=== PATIENT | male | born 1950 | race Caucasian/White ===

== ENCOUNTER 2019-02-16 18:10 | Emergency (ER) | payer MEDICARE, OTHER ==
[2019-02-16 18:21] VITALS: BP 129/98
[2019-02-16] MEDS ORDERED: DOXYCYCLINE 100 MG TABLET PO STA (19:00)
[2019-02-16] MEDS ORDERED: BUFFERED LIDOCAINE 10 ML SYRINGE SUBQ STA (19:00)
[2019-02-16] MEDS ORDERED: metroNIDAZOLE 250 MG TABLET PO STA (19:00)
--- NOTE | 2019-02-16 19:01 | ED Physician Documentation ---
PD HPI LOWER EXT INJURY - Stated complaint Stated Complaint: DOG BITE -RT LEG - Chief complaint Chief Complaint: Laceration - History obtained from History obtained from: Patient - History of Present Illness PD HPI LOW EXT INJURY LOCATION: Right (68-year-old gentleman who is up-to-date on tetanus got bitten by the neighbor's dog at home about 1 PM to the right leg just today.) Review of Systems Constitutional: reports: Reviewed and negative Nose: reports: Reviewed and negative Throat: reports: Reviewed and negative PD PAST MEDICAL HISTORY - Present Medications Home Medications: Ambulatory Orders Medication Instructions Recorded Confirmed Doxycycline Hyclate 100 mg PO BID #10 capsule 02/16/19 Metronidazole [Flagyl] 500 mg PO BID #10 tablet 02/16/19 - Allergies Allergies/Adverse Reactions: Allergies Allergy/AdvReac Type Severity Reaction Status Date / Time hydrocodone Allergy Unknown Verified 02/16/19 18:21 Penicillins Allergy Unknown Verified 02/16/19 18:21 PD ED PE NORMAL - Vitals Vital signs reviewed: Yes - General General: Alert and oriented X 3, No acute distress - Extremities Extremities: Other (On the right hamstring there is a 1.5 cm laceration into subcutaneous tissue with active bleeding. 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, Normal speech - Psych Psych: Normal mood, Normal affect Results - Vitals Vitals: Vital Signs - 24 hr 02/16/19 18:17 Temperature 36.8 C Heart Rate 95 Respiratory 22 Rate Blood Pressure 129/98 H O2 Saturation 100 Oxygen O2 Source Room air Procedures - Laceration (location) R leg Length in cm: 1 Wound type: Linear Neurovascular status: Sensory intact, Motor intact, Vascular intact Anesthesia: Lidocaine 1%, With bicarb Wound Preparation: Irrigated copiously NS Skin layer closure: Nylon, Interrupted, Size #-0 - enter number (4-0), Sutures - enter # (2) Other: Tetanus UTD Complexity: Simple Departure - Departure Disposition: 01 Home, Self Care Clinical Impression: Dog bite of right lower leg Qualifiers: Encounter type: initial encounter Qualified Code(s): S81.851A - Open bite, right lower leg, initial encounter; W54.0XXA - Bitten by dog, initial encounter Condition: Good Record reviewed to determine appropriate education?: Yes Instructions: ED Laceration All Prescriptions: Doxycycline Hyclate 100 mg PO BID #10 capsule Metronidazole [Flagyl] 500 mg PO BID #10 tablet Comments: Come back for any signs of infection which would include: Redness, swelling, drainage, increased pain, or fevers. You can wash it soap and water. Keep it covered and moist with bacitracin ointment which is available over the counter; avoid neosporin. Follow-up with your physician in about 10 days for suture removal.
== END 2019-02-16 19:22 | disposition home or self-care (01) ==
LOC: ED 18:10
DX: S71.151A Open bite, right thigh, initial encounter (principal); W54.0XXA Bitten by dog, initial encounter; Y92.009 Unspecified place in unspecified non-institutional (private) residence as the place of occurrence of the external cause
CPT/HCPCS: 12001; 99283; A9270

== ENCOUNTER 2019-04-21 14:57 | Emergency (ER) | payer MEDICARE, OTHER ==
[2019-04-21 15:03] VITALS: BP 173/69
--- NOTE | 2019-04-21 16:02 | ED Physician Documentation ---
PD HPI MALE - Stated complaint Stated Complaint: UNABLE TO URINATE - Chief complaint Chief Complaint: UTI - History obtained from History obtained from: Patient - History of Present Illness Timing - onset: How many weeks ago (2) Timing - duration: Weeks (2) Timing - details: Gradual onset, Still present Associated symptoms: Unable to urinate Similar symptoms before: Diagnosis (urinary retention) Recently seen: Clinic - Additional information Additional information: 68-year-old male developed a decreased urinary stream about 2 weeks ago and was placed on some Flomax with some improvement. Subsequently he has been unable to urinate or fully empty his bladder and he has been doing self cathing. Today he is not able to urinate at all and he has emptied his bladder earlier by self cathing. He has a prior history of urinary retention prior to his TURP and he has made an appointment to see a urologist at the end of this week. Review of Systems Constitutional: denies: Fever Eyes: denies: Decreased vision Ears: denies: Ear pain Nose: denies: Rhinorrhea / runny nose, Congestion Throat: denies: Sore throat Cardiac: denies: Chest pain / pressure, Palpitations Respiratory: reports: Dyspnea, Cough GI: denies: Abdominal Pain, Nausea, Vomiting : reports: Unable to Void. denies: Dysuria, Frequency PD PAST MEDICAL HISTORY - Present Medications Home Medications: Ambulatory Orders Medication Instructions Recorded Confirmed Doxycycline Hyclate 100 mg PO BID #10 capsule 02/16/19 Metronidazole [Flagyl] 500 mg PO BID #10 tablet 02/16/19 Levofloxacin [Levaquin] 500 mg PO DAILY #7 tablet 04/21/19 - Allergies Allergies/Adverse Reactions: Allergies Allergy/AdvReac Type Severity Reaction Status Date / Time hydrocodone Allergy Unknown Verified 02/16/19 18:21 Penicillins Allergy Unknown Verified 02/16/19 18:21 PD ED PE NORMAL - Vitals Vital signs reviewed: Yes (hypertensiev ) - General General: Alert and oriented X 3, No acute distress, Well developed/nourished - HEENT HEENT: Atraumatic, PERRL, EOMI - Neck Neck: Supple, no meningeal sign - Cardiac Cardiac: RRR, No murmur - Respiratory Respiratory: No respiratory distress, Other (scattered wheezes with fair air movement) - Abdomen Abdomen: Soft, Non tender - Back Back: No CVA TTP, No spinal TTP - Derm Derm: Normal color, Warm and dry, No rash - Extremities Extremities: No deformity, No edema - Neuro Neuro: Alert and oriented X 3, photographic platemaker 2-12 intact, No motor deficit, No sensory deficit, Normal speech Eye Opening: Spontaneous Motor: Obeys Commands Verbal: Oriented GCS Score: 15 - Psych Psych: Normal mood, Normal affect Results - Vitals Vitals: Vital Signs - 24 hr 04/21/19 14:59 Temperature 37.3 C Heart Rate 88 Respiratory 18 Rate Blood Pressure 173/69 H O2 Saturation 98 Oxygen O2 Source Room air - Labs Labs: Laboratory Tests 04/21/19 16:25 Urine Color YELLOW Urine Clarity CLOUDY Urine pH 6.0 Ur Specific [place] 1.015 Urine Protein TRACE Urine Glucose (UA) NEGATIVE Urine Ketones NEGATIVE Urine Occult Blood SMALL H Urine Nitrite POSITIVE H Urine Bilirubin NEGATIVE Urine Urobilinogen 1 (NORMAL) Ur Leukocyte Esterase MODERATE H Urine RBC 6-10 H Urine WBC >25 H Ur Squamous Epith Cells NONE SEEN Urine Bacteria Moderate H Ur Microscopic Review INDICATED Urine Culture Comments INDICATED PD MEDICAL DECISION MAKING - ED course Complexity details: reviewed results, re-evaluated patient, considered differential, d/w patient ED course: 76-year-old male with gradual decrease in his stream has now developed retention and a Mims catheter is placed with drainage of foul urine that is showing evidence of infection. The patient is administered Levaquin 500 mg orally here in the emergency department and he has follow-up with a urologist at the end of this week. Departure - Departure Disposition: 01 Home, Self Care Clinical Impression: Urinary retention Urinary tract infection Qualifiers: Urinary tract infection type: acute cystitis Hematuria presence: with hematuria Qualified Code(s): N30.01 - Acute cystitis with hematuria Instructions: ED Catheter Care Mims, ED Retention Urinary Male, ED UTI Cystitis Male Follow-Up: Abbi Reina MD [Physician No Access] - Prescriptions: Levofloxacin [Levaquin] 500 mg PO DAILY #7 tablet
[2019-04-21 16:30] LABS: BILIRUBIN,URINE NEGATIVE (NEGATIVE); GLUCOSE, URINE (UA) NEGATIVE (NEGATIVE); KETONES,URINE (UA) NEGATIVE (NEGATIVE); LEUKOCYTE ESTERASE, URINE MODERATE (NEGATIVE); NITRITE,URINE POSITIVE (NEGATIVE); OCCULT BLOOD,URINE SMALL (NEGATIVE); PROTEIN,URINE TRACE mg/dL (NEGATIVE); UROBILINOGEN,URINE 1 (NORMAL) E.U./dL (NORMAL)
[2019-04-21 16:31] LABS: CLARITY,URINE CLOUDY (CLEAR)
[2019-04-21 16:56] LABS: BACTERIA,URINE Moderate /HPF (None Seen); SQUAMOUS EPITHELIAL CELL,UR NONE SEEN (<= Few)
[2019-04-21] MEDS ORDERED: levoFLOXacin 250 MG TABLET PO STA (17:39)
== END 2019-04-21 18:04 | disposition home or self-care (01) ==
LOC: ED 14:57
DX: R33.9 Retention of urine, unspecified (principal); N30.01 Acute cystitis with hematuria
CPT/HCPCS: 51702; 81001; 87086; 87181; 99283; 99284; A9270; 81003

== ENCOUNTER 2020-04-23 13:00 | Outpatient (CLI) | payer MEDICARE, OTHER | END 2020-04-23 13:01 | disposition home or self-care (01) | LOC: LAB 13:00 | PROVIDERS: ATTEND Surgery | DX: Z01.812 Encounter for preprocedural laboratory examination (principal); K40.90 Unilateral inguinal hernia, without obstruction or gangrene, not specified as recurrent; Z11.59 Encounter for screening for other viral diseases ==

== ENCOUNTER 2020-04-28 07:17 | Day surgery (SDC) | payer MEDICARE, OTHER ==
[~2020-04-28 07:17] MED LIST: CEFAZOLIN SODIUM IN 0.9 % NACL 2 GM/100 ML BAG IV ONE
[2020-04-28] MEDS ORDERED: ROCURONIUM 50 MG/5 ML VIAL IVP ONE (07:18)
[2020-04-28] MEDS ORDERED: KETOROLAC 30 MG/ML VIAL IVP ONE (07:18)
[2020-04-28] MEDS ORDERED: DEXAMETHASONE 4 MG/ML VIAL IVP ONE (07:18)
[2020-04-28] MEDS ORDERED: LIDOCAINE-MPF 2% 5 ML VIAL IM ONE (07:18)
[2020-04-28] MEDS ORDERED: SUGAMMADEX 200 MG/2 ML VIAL IVP ONE (07:18)
[2020-04-28] MEDS ORDERED: fentaNYL 100 MCG/2 ML VIAL IVP ONE (07:18)
[2020-04-28] MEDS ORDERED: KETAMINE 500 MG/10 ML VIAL IVP ONE (07:18)
[2020-04-28] MEDS ORDERED: ePHEDrine 50 MG/ML VIAL IVP ONE (07:18)
[2020-04-28] MEDS ORDERED: PROPOFOL 200 MG/20 ML VIAL IVP ONE (07:18)
[2020-04-28] MEDS ORDERED: BUPIVACAINE 0.25% PF 30 ML VIAL ONE ×3 (07:19→09:29)
[2020-04-28] MEDS ORDERED: ceFAZolin 1 GM VIAL ONE (07:19)
[2020-04-28] MEDS ORDERED: LACTATED RINGERS 1,000 ML IV ONE (07:41)
--- NOTE | 2020-04-28 07:56 | ANESTHESIA ---
Pre-Anesthesia VS, & Labs - Diagnosis right inguinal hernia - Procedure Laparoscopic right inguinal hernia repair Vital Signs: Temp Pulse Resp BP Pulse Ox 36.5 C 71 20 160/92 H 97 04/28/20 07:23 04/28/20 07:23 04/28/20 07:23 04/28/20 07:23 04/28/20 07:23 Height 5 ft 7 in Weight (kg) 56.6 kg Body Mass Index 17.5 - NPO >8 hours Home Medications and Allergies Home Medications: Ambulatory Orders Albuterol Sulfate [Proair Hfa Inhaler] 1 - 2 puffs INH Q4H PRN 04/16/20 Fluticasone/Salmeterol [Advair 250-50 Diskus] 1 each IH BID 04/16/20 Tamsulosin HCl [Flomax] 0.8 mg PO QPM 04/16/20 Albuterol Sulfate [Proair Hfa Inhaler] 1 - 2 puffs INH Q4H PRN 04/16/20 Fluticasone/Salmeterol [Advair 250-50 Diskus] 1 each IH BID 04/16/20 Tamsulosin HCl [Flomax] 0.8 mg PO QPM 04/16/20 Allergies/Adverse Reactions: Allergies Allergy/AdvReac Type Severity Reaction Status Date / Time bupropion [From Wellbutrin] Allergy Unknown Verified 04/28/20 07:44 hydrocodone Allergy Itching Verified 04/16/20 08:59 Penicillins Allergy Itching Verified 04/16/20 08:59 Anes History & Medical History - Anesthetic History Anesthesia Complications: reports: No previous complications Family history of Anesthesia Complications: Denies Family history of Malignant Hyperthermia: Denies - Medical History Cardiovascular: reports: Hypertension, High cholesterol, Other (does lawn mowing and works in his garden everyday. Denies any chest pain/pressure while active. denies any TX's) Pulmonary: reports: COPD (denies being diagnosed with COPD) Gastrointestinal: reports: None Urinary: reports: Benign prostate hypertrophy Neuro: reports: None, Other (bells palsy in 1966 and 1969) Musculoskeletal: reports: Chronic back pain Endocrine/Autoimmune: reports: None Blood Disorders: reports: None Skin: reports: None Smoking Status: Current every day smoker (2ppd x50 years) Psychosocial: reports: No issues indicated - Surgical History General: Colonoscopy, Other Urologic: Prostatic surgery Orthopedic: Spine surgery Exam General: Alert, Oriented x3, Cooperative, No acute distress Dental: WNL Mouth Openin Fingerbreadth Neck Mobility: Normal Mallampati classification: II Thyromental Distance: 4-6 cm Respiratory: Decreased breath sounds Cardiovascular: Regular rate, Normal S1, Normal S2, No murmurs Abdomen: Normal bowel sounds, Soft, No tenderness, No hepatospenomegaly, No masses Extremities: No clubbing, No cyanosis, No edema, Normal pulses, No tenderness/swelling Neurological: Normal gait, Normal speech, Strength at 5/5 X4 ext, Normal tone, Sensation intact, Cranial nerves 3-12 NL, Reflexes 2+ Mental/Cognitive Status: Alert/Oriented X3, Normal for patient Cognitive Status: Within normal limits Plan Anesthesia Type: General Consent for Procedure(s) Verified and Reviewed: Yes Code Status: Attempt Resuscitation ASA classification: 3-Severe systemic disease Is this case an emergency?: No
[2020-04-28] MEDS ORDERED: ALBUTEROL 1 PUFF INH STA (08:30)
[2020-04-28] MEDS ORDERED: BUPIVACAINE 0.25% PF 30 ML VIAL SUBQ ONE ×3 (09:28→10:09)
[2020-04-28] MEDS ORDERED: oxyCODONE 5 MG TABLET PO PRN (10:31)
[2020-04-28] MEDS ORDERED: ONDANSETRON 4 MG/2 ML VIAL IVP PRN (10:31)
--- NOTE | 2020-04-28 11:26 | OPERATIVE REPORT ---
DATE OF SERVICE: 04/28/2020 Physician: Luis Fernando Cisse MD PREOPERATIVE DIAGNOSIS: Recurrent inguinal hernia. POSTOPERATIVE DIAGNOSIS: Recurrent inguinal hernia, incarcerated. PROCEDURE PERFORMED: Open repair of recurrent incarcerated right inguinal hernia. SURGEON: Luis Fernando Cisse MD SKILLS INSTRUCTOR: None. ANESTHESIA: General endotracheal anesthesia. Local anesthesia with Marcaine. COMPLICATIONS: None. SPECIMENS: Incarcerated preperitoneal adipose tissue and hernia sac removed. However, not sent for pathology. ESTIMATED BLOOD LOSS: None. DRAINS: None. PROSTHETIC: Polypropylene mesh. FINDINGS: Incarcerated direct inguinal hernia, at time surgery consisted of a sac and thickened preperitoneal adipose tissue. The ilioinguinal nerve likely had been removed on prior surgery. Iliohypogastric nerve was not identified, likely was removed with prior surgery. His prior repair on this side was an open, with preperitoneal mesh placement. INDICATIONS FOR PROCEDURE: The patient is a 69-year-old gentleman who has had 5 inguinal hernias over the last 2-3 decades. He has a painful hernia on the right-hand side. He is able to reduce it at times. Laparoscopic repair was offered and recommended. Risks discussed, alternatives discussed. All questions answered and consent obtained. DETAILS OF PROCEDURE: The patient was properly identified, brought to the operating room and placed in supine position. General endotracheal anesthesia was induced. Sequential compression devices and Mims catheter were placed. Under general anesthesia, he still had a palpable 3 cm nodule or incarceration, which I was not able to reduce. The patient denied having a laparoscopic repair; however, had a small suprapubic scar and infraumbilical scar, both consistent with prior laparoscopic inguinal hernia surgery. He did not have palpable mesh present superficially even though he is quite thin. Plan was changed to open repair. He was prepped and draped in a sterile fashion and given preoperative antibiotics. Local anesthetic was given throughout the procedure. The prior scar was re-incised. Dissection proceeded with cutting current down to Laura's. Laura's was opened. The fascia was identified and opened in the direction of its fibers. The cord structures were identified, mobilized, and brought up. He had a direct inguinal hernia recurrence. His mesh had previously been placed preperitoneal. Sutures were identified as well as mesh. The direct inguinal hernia incarceration was carefully inspected. This essentially was thickened peritoneal adipose tissue and preperitoneal adipose tissue. Incarcerated internal contents had been reduced. This hernia sac was tied with a 2-0 silk. He had an additional small hernia suprapubically. The genitofemoral nerve was identified. A polypropylene mesh was cut to size and with tails. The mesh was placed in Mely fashion with multiple interrupted 0 Ethibond sutures. Sutures were placed at the pubic tubercle along the shelving border of Poupart ligament and medially along the musculature fascia of the internal oblique. The medial tail of the mesh was secured to the shelving border of Poupart ligament with three interrupted 0 Ethibond sutures, recreating the internal ring of appropriate size. The aponeurosis was closed with a running 2-0 Vicryl. Laura's was closed with interrupted 3-0 Vicryl suture. Skin was closed with a running 4-0 Monocryl subcuticular suture. Dressing was applied. He tolerated the procedure well. TD: 04/28/2020 10:58 PHOEBE
[2020-04-28] MEDS ORDERED: oxyCODONE 5 MG TABLET ONE (11:31)
[2020-04-28 11:57] VITALS: BP 126/75
[2020-04-28] MEDS ORDERED: BUDESONIDE 0.5 MG/2 ML NEB INH SCH (19:00)
== END 2020-04-28 07:18 | disposition home or self-care (01) ==
LOC: SDS 07:17
PROVIDERS: ATTEND Surgery
DX: K40.91 Unilateral inguinal hernia, without obstruction or gangrene, recurrent (principal); I10 Essential (primary) hypertension; F17.210 Nicotine dependence, cigarettes, uncomplicated; J44.9 Chronic obstructive pulmonary disease, unspecified
CPT/HCPCS: 49521; A9270; C1781; J0690; J7120; J7626

== ENCOUNTER 2020-08-30 14:15 | Emergency (ER) | payer MEDICARE, OTHER ==
--- NOTE | 2020-08-30 14:41 | ED Physician Documentation ---
History of Present Illness - Stated complaint Stated Complaint: SOA - Chief complaint Chief Complaint: Resp - History obtained from History obtained from: Patient - History of Present Illness Pain level max: 2 Pain level now: 1 - Additonal information Additional information: 70-year-old male presents to the emergency department with difficulty breathing. He states this been ongoing for several years. Has a history of COPD. Uses Spiriva at home. States it is not helping. Has had increased difficulty breathing over the past week. Has a chronic cough that is unchanged from baseline. No fevers. No chills. States that his chest feels tight. No history of heart problems. No Covid exposure that he is aware of. No travel. No recent antibiotics. Nothing seems to make it better or worse. Review of Systems Ten Systems: 10 systems reviewed and negative Constitutional: denies: Fever, Chills Ears: denies: Ear pain Nose: denies: Rhinorrhea / runny nose, Congestion Cardiac: reports: Chest pain / pressure ("Tightness"). denies: Palpitations Respiratory: reports: Dyspnea, Wheezing. denies: Hemoptysis GI: denies: Abdominal Pain, Nausea, Vomiting, Diarrhea : denies: Dysuria Skin: denies: Rash Musculoskeletal: denies: Neck pain, Back pain Neurologic: denies: Headache PD PAST MEDICAL HISTORY - Past Medical History Past Medical History: Yes Cardiovascular: Hypertension, High cholesterol, Other Respiratory: COPD Neuro: None, Other Endocrine/Autoimmune: None GI: None : Benign prostate hypertrophy HEENT: Chronic vision loss Psych: Depression, Anxiety Musculoskeletal: Chronic back pain Derm: None - Past Surgical History Past Surgical History: Yes General: Colonoscopy, Other Ortho: Spine surgery - Present Medications Home Medications: Ambulatory Orders Medication Instructions Recorded Confirmed Albuterol Sulfate [Proair Hfa 1 - 2 puffs INH Q4H PRN 04/16/20 04/28/20 Inhaler] Fluticasone/Salmeterol [Advair 1 each IH BID 04/16/20 04/28/20 250-50 Diskus] Tamsulosin HCl [Flomax] 0.8 mg PO QPM /06/2804/28/20 oxyCODONE/ACET 5/325 [Percocet 5 1 each PO Q4-6H PRN #25 tablet 04/28/20 mg/325 mg] Albuterol Sulf [Ventolin Hfa 1 - 2 puffs INH Q4HR PRN #1 inhaler 08/30/20 Inhaler] predniSONE [Deltasone] 10 mg PO [id number] #42 tab 08/30/20 - Allergies Allergies/Adverse Reactions: Allergies Allergy/AdvReac Type Severity Reaction Status Date / Time bupropion [From Wellbutrin] Allergy Unknown Verified 08/30/20 14:24 hydrocodone Allergy Itching Verified 08/30/20 14:24 Penicillins Allergy Itching Verified 08/30/20 14:24 - Social History Does the pt smoke?: Yes Smoking Status: Current every day smoker Does the pt drink ETOH?: No Does the pt have substance abuse?: No - Immunizations Immunizations are current?: Yes - POLST Patient has POLST: No PD ED PE NORMAL - Vitals Vital signs reviewed: Yes - General General: Alert and oriented X 3, No acute distress - HEENT HEENT: Moist mucous membranes - Neck Neck: Supple, no meningeal sign - Cardiac Cardiac: RRR, Strong equal pulses - Respiratory Respiratory: No respiratory distress, Other (Diminished breath sounds with wheezing bilaterally) - Abdomen Abdomen: Soft, Non tender, Non distended - Derm Derm: Warm and dry - Extremities Extremities: No edema - Neuro Neuro: Alert and oriented X 3 - Psych Psych: Normal mood, Normal affect Results - Vitals Vitals: Vital Signs - 24 hr 08/30/20 08/30/20 08/30/20 14:20 14:33 15:00 Temperature 36.5 C 36.5 C Heart Rate 84 84 69 Respiratory 16 16 24 Rate Blood Pressure 135/86 H 135/86 H O2 Saturation 98 98 08/30/20 16:00 Temperature 36.6 C Heart Rate 72 Respiratory 20 Rate Blood Pressure 144/82 H O2 Saturation 97 Oxygen O2 Source Room air - EKG (time done) 1433 Rate: Rate (enter#) (76) Rhythm: NSR [place]: Normal Intervals: Normal [place] QRS: Normal Ischemia: Other (flat t waves V1-3) - Labs Labs: Laboratory Tests 08/30/20 08/30/20 08/30/20 14:41 14:41 14:41 WBC 6.2 RBC 4.94 Hgb 15.2 Hct 46.4 MCV 93.9 MCH 30.8 MCHC 32.8 RDW 13.9 Plt Count 269 MPV 9.9 Neut # (Auto) 4.3 Lymph # (Auto) 0.9 L Terry # (Auto) 0.6 Eos # (Auto) 0.3 Baso # (Auto) 0.0 Absolute Nucleated RBC 0.00 Nucleated RBC % 0.0 Sodium 137 Potassium 4.2 Chloride 97 L Carbon Dioxide 30 Anion Gap 10.0 BUN 11 Creatinine 0.8 Estimated GFR (MDRD) 95 Glucose 100 Calcium 8.6 Total Bilirubin 0.6 AST 18 ALT 16 Alkaline Phosphatase 88 Troponin I High Sens 5.9 Total Protein 7.2 Albumin 3.3 Globulin 3.9 Albumin/Globulin Ratio 0.8 L Lipase 25 - Rads (name of study) cxr Radiology: Prelim report reviewed, EMP read contemporaneously PD MEDICAL DECISION MAKING - ED course Complexity details: reviewed results, re-evaluated patient, considered differential, d/w patient ED course: 70-year-old male with what appears to be a COPD flare. He is well-appearing, nontoxic. Afebrile. No hypoxia. No respiratory distress. No acute findings on chest x-ray. Covid swab was sent. Will place him on steroids for home. No indication for antibiotics at this time. Patient counseled regarding signs and symptoms for which I believe and urgent re-evaluation would be necessary. Patient with good understanding of and agreement to plan and is comfortable going home at this time This document was made in part using voice recognition software. While efforts are made to proofread this document, sound alike and grammatical errors may occur. Departure - Departure Disposition: 01 Home, Self Care Clinical Impression: COPD exacerbation Condition: Good Instructions: ED COPD Flare Follow-Up: CYRIL GODDARD MD [Primary Care Provider] - Within 1 week Prescriptions: Albuterol Sulf [Ventolin Hfa Inhaler] 1 - 2 puffs INH Q4HR PRN #1 inhaler PRN Reason: Shortness Of Air/Wheezing predniSONE [Deltasone] 10 mg PO [id number] #42 tab Comments: Use the steroids as prescribed. Use your inhaler with the spacer. Return if you worsen. Follow-up with your doctor for further care. You have a Covid test pending. You need to self quarantine until the result is done and negative. Do not leave your house. Do not get near anybody. The results should be done in 48 to 72 hours. We will call with a positive result, the fastest way to get a negative result for confirmation though is to go to the hospital website at [email or web address], click on the my [email or web address] tab and sign up for the patient portal. If any friends or family get sick and would like to have a Covid test done, but do not have signs or symptoms that would necessitate being hospitalized, we encourage testing through our coronavirus swabbing station, call [phone] to schedule an appointment. Discharge Date/Time: 08/30/20 16:09
[2020-08-30] MEDS: methylPREDNISolone SUCCINATE 125 MG/2 ML VIAL IVP STA (14:51)
[2020-08-30 14:58] LABS: BASOPHILS % (AUTO) 0.6 %; EOSINOPHILS # (AUTO) 0.3 10^3/uL (0.0-0.7); EOSINOPHILS % (AUTO) 4.8 %; HGB - HEMOGLOBIN 15.2 g/dL (14.0-18.0); LYMPHOCYTES # (AUTO) 0.9 10^3/uL (1.5-3.5); LYMPHOCYTES % (AUTO) 14.2 %; MEAN CORPUSCULAR HEMOGLOBIN 30.8 pg (27.0-31.0); MEAN CORPUSCULAR HGB CONC 32.8 g/dL (32.0-36.0); MEAN CORPUSCULAR VOLUME 93.9 fL (80.0-94.0); MEAN PLATELET VOLUME 9.9 fL (7.4-11.4); MONOCYTES # (AUTO) 0.6 10^3/uL (0.0-1.0); NEUTROPHILS # (AUTO) 4.3 10^3/uL (1.5-6.6); NEUTROPHILS % (AUTO) 69.9 %; PLT - PLATELET COUNT 269 10^3/uL (130-450); RED BLOOD COUNT 4.94 10^6/uL (4.70-6.10); RED CELL DISTRIBUTION WIDTH 13.9 % (12.0-15.0); WHITE BLOOD COUNT 6.2 x10^3/uL (4.8-10.8)
[2020-08-30] MEDS: ALBUTEROL 1 PUFF INH STA (15:00)
--- NOTE | 2020-08-30 15:02 | XRAY Report ---
PROCEDURE: Chest 1 View X-Ray INDICATIONS: Chest Pain TECHNIQUE: One view of the chest was acquired. COMPARISON: None FINDINGS: Surgical changes and devices: None. Lungs and pleura: No pleural effusions or pneumothorax. Lungs are clear. Mediastinum: Mediastinal contours appear normal. Heart size is normal. Bones and chest wall: No suspicious bony lesions. There is rightward curvature of the thoracic spin e. Overlying soft tissues appear unremarkable. IMPRESSION: No acute cardiopulmonary abnormality. Reviewed by: Pablo Cantu on 08/30/2020 3:01 PM [facility] Approved by: Pablo Cantu on 08/30/2020 3:01 PM [facility] Station ID: [id number]
[2020-08-30 15:15] LABS: ALBUMIN 3.3 g/dL (3.2-5.5); ALBUMIN/GLOBULIN RATIO 0.8 (1.0-2.2); BILIRUBIN,TOTAL 0.6 mg/dL (0.2-1.0); CALCIUM 8.6 mg/dL (8.5-10.3); CREATININE 0.8 mg/dL (0.6-1.2); TOTAL PROTEIN 7.2 g/dL (6.7-8.2)
[2020-08-30 16:06] VITALS: BP 144/82
== END 2020-08-30 16:09 | disposition home or self-care (01) ==
LOC: ED 14:15
DX: J44.1 Chronic obstructive pulmonary disease with (acute) exacerbation (principal); R07.89 Other chest pain; Z20.828 Contact with and (suspected) exposure to other viral communicable diseases; I10 Essential (primary) hypertension; F17.200 Nicotine dependence, unspecified, uncomplicated
CPT/HCPCS: 36415; 71045; 80053; 83690; 84484; 85025; 93005; 94640; 96374; 99284; U0004

== ENCOUNTER 2021-09-11 11:46 | Emergency (ER) | payer MEDICARE, OTHER ==
[2021-09-11 12:37] LABS: BASOPHILS % (AUTO) 0.7 %; EOSINOPHILS # (AUTO) 0.3 10^3/uL (0.0-0.7); EOSINOPHILS % (AUTO) 5.4 %; HGB - HEMOGLOBIN 14.7 g/dL (14.0-18.0); MEAN CORPUSCULAR HEMOGLOBIN 30.8 pg (27.0-31.0); MEAN CORPUSCULAR HGB CONC 32.7 g/dL (32.0-36.0); MEAN CORPUSCULAR VOLUME 94.3 fL (80.0-94.0); MEAN PLATELET VOLUME 9.9 fL (7.4-11.4); MONOCYTES # (AUTO) 0.7 10^3/uL (0.0-1.0); MONOCYTES % (AUTO) 11.8 %; NEUTROPHILS # (AUTO) 3.7 10^3/uL (1.5-6.6); NEUTROPHILS % (AUTO) 63.8 %; PLT - PLATELET COUNT 242 10^3/uL (130-450); RED BLOOD COUNT 4.77 10^6/uL (4.70-6.10); RED CELL DISTRIBUTION WIDTH 13.7 % (12.0-15.0); WHITE BLOOD COUNT 5.8 x10^3/uL (4.8-10.8)
[2021-09-11] MEDS ORDERED: ALBUTEROL NEB 2.5 MG/3 ML INH STA (12:42)
[2021-09-11 12:43] LABS: PT - PROTHROMBIN TIME 11.2 secs (9.9-12.6)
--- NOTE | 2021-09-11 12:46 | ED Physician Documentation ---
History of Present Illness - Stated complaint Stated Complaint: ABD PX, SOA - Chief complaint Chief Complaint: Abd Pain - Additonal information Additional information: 71-year-old male presents emergency department for evaluation of two concerns 1. He has had intermittent black tarry stools for the last week. He has never had this in the past. States he has had colonoscopies without concerning findings. He states that about a month ago he began having pain in his upper abdomen after eating. Described it as a burning gnawing pain. He has intermittently over the last month taking Tums as well as Pepto-Bismol. 2. Patient has a history of COPD. Increasing dyspnea over the last few weeks. He occasionally wears oxygen at home sometimes at night but not continuously. He does have a persistent productive cough which is unchanged from baseline. No fevers. He is vaccinated for COVID-19 though due for his booster. He is a daily tobacco user. Denies CP. Patient denies any alcohol use. Does not take blood thinners or NSAID meds Meds: Advair, Spiriva, albuterol, Flomax Review of Systems Constitutional: denies: Fever, Chills Eyes: reports: Reviewed and negative Ears: reports: Reviewed and negative Nose: reports: Reviewed and negative Cardiac: denies: Chest pain / pressure, Palpitations Respiratory: reports: Dyspnea, Cough, Wheezing. denies: Hemoptysis GI: reports: Abdominal Pain, Bloody / black stool. denies: Nausea, Vomiting : denies: Dysuria, Frequency, Hesitancy Skin: reports: Reviewed and negative Musculoskeletal: reports: Reviewed and negative PD PAST MEDICAL HISTORY - Past Medical History Cardiovascular: Hypertension, High cholesterol, Other Respiratory: COPD Neuro: None, Other Endocrine/Autoimmune: None GI: None : Benign prostate hypertrophy HEENT: Chronic vision loss Psych: Depression, Anxiety Musculoskeletal: Chronic back pain Derm: None - Past Surgical History Past Surgical History: Yes General: Colonoscopy, Other Ortho: Spine surgery - Present Medications Home Medications: Ambulatory Orders Medication Instructions Recorded Confirmed Albuterol Sulfate [Proair Hfa 1 - 2 puffs INH Q4H PRN 04/16/20 04/28/20 Inhaler] Fluticasone/Salmeterol [Advair 1 each IH BID 04/16/20 04/28/20 250-50 Diskus] Tamsulosin HCl [Flomax] 0.8 mg PO QPM 04/16/20 04/28/20 oxyCODONE/ACET 5/325 [Percocet 5 1 each PO Q4-6H PRN #25 tablet 04/28/20 mg/325 mg] Albuterol Sulf [Ventolin Hfa 1 - 2 puffs INH Q4HR PRN #1 inhaler 08/30/20 Inhaler] predniSONE [Deltasone] 10 mg PO [id number] #42 tab 08/30/20 Omeprazole 40 mg PO BID #60 cap 09/11/21 Sucralfate [Carafate] 1 gm PO ACHS #60 tablet 09/11/21 - Allergies Allergies/Adverse Reactions: Allergies Allergy/AdvReac Type Severity Reaction Status Date / Time bupropion [From Wellbutrin] Allergy Unknown Verified 09/11/21 11:59 hydrocodone Allergy Itching Verified 09/11/21 11:59 Penicillins Allergy Itching Verified 09/11/21 11:59 - Social History Does the pt smoke?: Yes Smoking Status: Current every day smoker Does the pt drink ETOH?: No Does the pt have substance abuse?: No - Immunizations Immunizations are current?: Yes - POLST Patient has POLST: No PD ED PE EXPANDED - General General: Alert, No acute distress, Well developed/nourished - Cardiac Cardiac: Regular Rate, Radial strong equal, Pedal strong equal, Cap refill < 2 sec - Respiratory Respiratory: Wheezing (generalized scattered expiratory wheeze). No: Distress, Labored - Abdomen Abdomen: Normal Bowel sounds, Tender to palpation (Mild upper abdominal tenderness without guarding or rebound. Negative Ruiz's. Negative McBurney's. Nonperitoneal. No left-sided lower abdominal tenderness noted) - Rectal Rectal: Machine Fitter present, Other (Chaperoned rectal exam does reveal a small amount of thin black stool in the vault. Sent for Hemoccult) - Neuro Neuro: Alert and Oriented X 3, CNII-XII intact - GCS Eye Opening: Spontaneous Motor: Obeys Commands Verbal: Oriented Total: 15 Results - Vitals Vitals: Vital Signs - 24 hr 09/11/21 09/11/21 09/11/21 11:54 12:40 12:53 Temperature 36.1 C L Heart Rate 98 85 75 Respiratory 24 23 17 Rate Blood Pressure 140/67 H 147/82 H O2 Saturation 95 100 100 12/04/21 12/04/21 12:56 14:13 Temperature Heart Rate 73 69 Respiratory 22 24 Rate Blood Pressure 123/86 H O2 Saturation 100 Oxygen O2 Source Nasal cannula - Labs Labs: Microbiology 09/11/21 12:40 Occult Blood - Final Stool Laboratory Tests 09/11/21 09/11/21 09/11/21 12:31 12:31 12:31 WBC 5.8 RBC 4.77 Hgb 14.7 Hct 45.0 MCV 94.3 H MCH 30.8 MCHC 32.7 RDW 13.7 Plt Count 242 MPV 9.9 Neut # (Auto) 3.7 Lymph # (Auto) 1.0 L [place] # (Auto) 0.7 Eos # (Auto) 0.3 Baso # (Auto) 0.0 Absolute Nucleated RBC 0.00 Nucleated RBC % 0.0 PT 11.2 INR 1.0 APTT 28.4 Sodium 131 L Potassium 4.0 Chloride 95 L Carbon Dioxide 28 Anion Gap 8.0 BUN 12 Creatinine 0.7 Estimated GFR (MDRD) 111 Glucose 94 Calcium 8.4 L Total Bilirubin 0.5 AST 18 ALT 14 Alkaline Phosphatase 74 Troponin I High Sens Total Protein 6.4 L Albumin 3.0 L Globulin 3.4 Albumin/Globulin Ratio 0.9 L Lipase 24 09/11/21 12:31 WBC RBC Hgb Hct MCV MCH MCHC RDW Plt Count MPV Neut # (Auto) Lymph # (Auto) [place] # (Auto) Eos # (Auto) Baso # (Auto) Absolute Nucleated RBC Nucleated RBC % PT INR APTT Sodium Potassium Chloride Carbon Dioxide Anion Gap BUN Creatinine Estimated GFR (MDRD) Glucose Calcium Total Bilirubin AST ALT Alkaline Phosphatase Troponin I High Sens 4.2 Total Protein Albumin Globulin Albumin/Globulin Ratio Lipase - Rads (name of study) CXR Radiology: Final report received (COPD; no acute cardiopulmonary process) CT abd Radiology: Final report received (SPECT the gastric wall thickening which may reflect gastritis. Colonic diverticulosis without acute diverticulitis. Infrarenal abdominal aortic aneurysm measuring 4.1 cm. Increased from 3.1 cm on the lumbar spine MRI study) PD MEDICAL DECISION MAKING - ED course Complexity details: reviewed results, re-evaluated patient, considered differential, d/w patient ED course: 71-year-old male presents the emergency department for evaluation of black tarry stools. Over the last month he has begun to have epigastric abdominal discomfort and has begun taking Pepto-Bismol. Over the last week he has had multiple black stools. Today in the emergency department he is noted to have modest epigastric pain wi th palpation. A rectal exam did reveal black stool however the Hemoccult was negative for blood. His screening hemoglobin was normal. A CT of the abdomen did show suspected gastritis. Patient will be started on omeprazole and Carafate at night. Advised follow-up with PCP for further Evaluation as a referral for an EGD may be warranted. Pt initially presented with increased dyspnea. fully resolved following albuterol nebulizer. he declined abx or steroids as he does not like they way they make him feel Incidental finding on the CT scan shows an infrarenal abdominal aortic aneurysm measuring approximately 4 cm. This is increased in size from 3 cm in April 2015 when he had a lumbar MRI completed. Patient is also advised to follow this up with his primary care provider. Referral to vascular surgeon may be warranted. Emergent return precautions were discussed for worsening signs and symptoms of abdominal pain or aneurysmal rupture Departure - Departure Disposition: 01 Home, Self Care Clinical Impression: Abdominal aneurysm, History of COPD Gastritis Qualifiers: Gastritis type: other gastritis Chronicity: chronic Gastritis bleeding: without bleeding Qualified Code(s): K29.50 - Unspecified chronic gastritis without bleeding Condition: Stable Record reviewed to determine appropriate education?: Yes Instructions: ED Aneurysm Abdominal Aortic Stable, ED Gastritis Follow-Up: CYRIL GODDARD MD [Primary Care Provider] - Prescriptions: Sucralfate [Carafate] 1 gm PO ACHS #60 tablet Omeprazole 40 mg PO BID #60 cap Comments: Jeff you were seen today in the ER for black stool. You have been taking Pepto- Bismol because of stomach upset. The Pepto-Bismol can cause black stool. Your stool checked today in the ER was negative for blood. Your hemoglobin was normal today We did do a CT of the abdomen that shows stomach inflammation. Please discuss this with your primary doctor. You should be referred for an endoscopy to evaluate for the development of stomach ulcers and other causes of gastritis. To treat the gastritis please fill the prescription for the omeprazole and begin taking twice daily. I would also like you to fill the prescription for the Carafate and take at nighttime. Please separate this from other medications by at least [address] of your abdomen shows that you have a 4.1 cm abdominal aneurysm. This is increased in size from February 2015 MRI of your lumbar spine. Most aneurysms are considered stable and less they exceed more than 5 cm in diameter. However your primary doctor should make a referral for you to a vascular surgeon for further evaluation and possible treatment. If at any point you have uncontrolled vomiting bloody vomit, feel faint or dizzy, have severe chest pain that radiates to your back or have bright red stool then please return immediately to the ER for a second evaluation.
[2021-09-11] MEDS ORDERED: PANTOPRAZOLE 40 MG VIAL IVP STA (12:47)
[2021-09-11 12:48] LABS: ALBUMIN/GLOBULIN RATIO 0.9 (1.0-2.2); BILIRUBIN,TOTAL 0.5 mg/dL (0.2-1.0); CALCIUM 8.4 mg/dL (8.5-10.3); CREATININE 0.7 mg/dL (0.6-1.2); TOTAL PROTEIN 6.4 g/dL (6.7-8.2)
[2021-09-11 13:02] LABS: PARTIAL THROMBOPLASTIN TIME 28.4 secs (24.9-33.3)
--- NOTE | 2021-09-11 13:29 | XRAY Report ---
PROCEDURE: Chest 1 View X-Ray INDICATIONS: chest pain TECHNIQUE: One view of the chest was acquired. COMPARISON: 08/30/2020 FINDINGS: Surgical changes and devices: None. Lungs and pleura: There is hyperinflation of the lungs with flattening of hemidiaphragms compatible with COPD. No acute consolidation. No pleural effusions or pneumothorax. Mediastinum: Mediastinal contours appear normal. Heart size is normal. Bones and chest wall: No suspicious bony lesions. Overlying soft tissues appear unremarkable. IMPRESSION: 1. Findings compatible with COPD redemonstrated. 2. No definite acute cardiopulmonary disease. Reviewed by: Jono Miller MD on 09/11/2021 12:28 PM [facility] Approved by: Jono Miller MD on 09/11/2021 12:28 PM [facility] Station ID: [id number]
[2021-09-11] MEDS ORDERED: IOVERSOL 320 100 ML VIAL IVP ONE ×2 (14:41→15:54)
--- NOTE | 2021-09-11 15:14 | CT Report ---
PROCEDURE: Abdomen/Pelvis W INDICATIONS: tarry stools; gastric abd pain CONTRAST: IV CONTRAST: Optiray 320 ml: 100 PO CONTRAST: *NO PO CONTRAST TECHNIQUE: After the administration of intravenous contrast, 5 mm thick sections acquired from the diaphragms to the symphysis. 5 mm thick coronal and sagittal reformats were acquired. For radiation dose reducti on, the following was used: automated exposure control, adjustment of mA and/or kV according to sheridan ent size. COMPARISON: MRI lumbar spine 04/08/2015. FINDINGS: Image quality: There is mild motion artifact. ABDOMEN: Lung bases: There is mild scarring in the lung bases. Heart size is normal. Solid organs: There is a small focal hypodensity in the right hepatic dome which is too small to faith acterize but likely represents a cyst. Gallbladder appears within normal limits without calcified gal lstones. Biliary system is non dilated. Pancreas enhances normally. There is thickening of the adre nal glands bilaterally. Kidneys demonstrate no hydronephrosis. Peritoneum and bowel: There is suggestion of gastric wall thickening but evaluation is limited by no ndistention. Bowel loops demonstrate normal wall thickness and caliber. The appendix is normal in ap pearance. There is colonic diverticulosis without acute diverticulitis. No free fluid or air. Nodes and vessels: No retroperitoneal or mesenteric adenopathy by size criteria. There is fusiform a neurysmal dilatation of the infrarenal abdominal aorta which measures up to 4.1 cm in anteroposterior dimension. There is eccentric intraluminal thrombus within the aneurysm without high-grade stenosis. There are diffuse vascular calcifications. Miscellaneous: No ventral hernias. PELVIS: Genitourinary: Bladder wall thickness is normal. There is prominent distention of the bladder which is lobulated in contour. Miscellaneous: No inguinal hernias or adenopathy. Bones: No suspicious bony lesions. No vertebral body compression fractures. There are postsurgical changes in the lower lumbar spine status post posterior fixation at L4-S1. IMPRESSION: 1. Suspected gastric wall thickening which may reflect a gastritis. 2. Colonic diverticulosis without acute diverticulitis. 3. Infrarenal abdominal aortic aneurysm measuring up to 4.1 cm appears increased from approximately 3 .1 cm on the prior lumbar spine MRI study. Reviewed by: Jono Miller MD on 09/11/2021 2:13 PM [facility] Approved by: Jono Miller MD on 09/11/2021 2:13 PM [facility] Station ID: [id number]
[2021-09-11 16:41] VITALS: BP 128/80
== END 2021-09-11 16:41 | disposition home or self-care (01) ==
LOC: ED 11:46
DX: K29.50 Unspecified chronic gastritis without bleeding (principal); K57.30 Diverticulosis of large intestine without perforation or abscess without bleeding; I71.4 Abdominal aortic aneurysm, without rupture; J44.9 Chronic obstructive pulmonary disease, unspecified; F17.200 Nicotine dependence, unspecified, uncomplicated; I10 Essential (primary) hypertension
CPT/HCPCS: 36415; 71045; 74177; 80053; 82272; 83690; 84484; 85025; 85610; 85730; 94640; 96374; 99284; Q9967

== ENCOUNTER 2021-09-26 15:27 | Observation (INO) | payer MEDICARE, OTHER ==
[2021-09-26] MEDS ORDERED: methylPREDNISolone SUCCINATE 125 MG/2 ML VIAL IVP STA (15:42)
[2021-09-26] MEDS ORDERED: ALBUTEROL NEB 2.5 MG/3 ML INH STA ×2 (15:42→16:00)
[2021-09-26] MEDS ORDERED: IPRATROPIUM 0.2 MG/ML NEB INH STA (15:42)
--- NOTE | 2021-09-26 15:46 | ED Physician Documentation ---
History of Present Illness - Stated complaint Stated Complaint: SOA - Chief complaint Chief Complaint: Resp - Additonal information Additional information: 71-year-old male who has a history of COPD typically on nighttime O2 only presents the emergency department with 3 days of progressive shortness of air. Now unable to speak more than 2-3 words at a time. Visibly labored. Initial saturations on room air were 91% Pt states that he now requires O2 continuously. Patient states that his kids are at his house painting the rooms and that the paint fumes that have caused this exacerbation. Patient is an active daily tobacco user though admits that he has been unable to smoke the last few days due to respiratory distress. Seen about 2 weeks ago for concerns of black stool. At that time CT of the abdomen suggested gastritis. his hgb was normal, but he has been taking pepto. a rx for omeprazole and carafate was sent to the pharmacy and pt was advised f/u with pcp for referral for EGD. At that visit he did have mild dyspnea which fully resolved with nebulizer. he declined abx and steroids. Review of Systems Constitutional: reports: Reviewed and negative Respiratory: reports: Dyspnea, Cough, Wheezing GI: denies: Abdominal Pain, Nausea, Vomiting : reports: Other (Chronic indwelling Mims catheter) Skin: denies: Rash, Lesions Musculoskeletal: reports: Reviewed and negative Neurologic: reports: Reviewed and negative Psychiatric: reports: Reviewed and negative Endocrine: reports: Reviewed and negative PD PAST MEDICAL HISTORY - Past Medical History Cardiovascular: Hypertension, High cholesterol, Other Respiratory: COPD Neuro: None, Other Endocrine/Autoimmune: None GI: None : Benign prostate hypertrophy HEENT: Chronic vision loss Psych: Depression, Anxiety Musculoskeletal: Chronic back pain Derm: None - Past Surgical History Past Surgical History: Yes General: Colonoscopy, Other Ortho: Spine surgery - Present Medications Home Medications: Ambulatory Orders Medication Instructions Recorded Confirmed Albuterol Sulfate [Proair Hfa 1 - 2 puffs INH Q4H PRN 04/16/20 04/28/20 Inhaler] Fluticasone/Salmeterol [Advair 1 each IH BID 04/16/20 04/28/20 250-50 Diskus] Tamsulosin HCl [Flomax] 0.8 mg PO QPM 04/16/20 04/28/20 oxyCODONE/ACET 5/325 [Percocet 5 1 each PO Q4-6H PRN #25 tablet 04/28/20 mg/325 mg] Albuterol Sulf [Ventolin Hfa 1 - 2 puffs INH Q4HR PRN #1 inhaler 08/30/20 Inhaler] predniSONE [Deltasone] 10 mg PO [id number] #42 tab 08/30/20 Omeprazole 40 mg PO BID #60 cap 09/11/21 Sucralfate [Carafate] 1 gm PO ACHS #60 tablet 09/11/21 - Allergies Allergies/Adverse Reactions: Allergies Allergy/AdvReac Type Severity Reaction Status Date / Time hydrocodone Allergy Itching Verified 09/26/21 15:36 Penicillins Allergy Itching Verified 09/26/21 15:36 - Social History Does the pt smoke?: Yes Smoking Status: Current every day smoker Does the pt drink ETOH?: No Does the pt have substance abuse?: No - Immunizations Immunizations are current?: Yes - POLST Patient has POLST: No PD ED PE EXPANDED - General General: Alert, In distress (respiratory) - Cardiac Cardiac: Regular Rate, Radial strong equal, Pedal strong equal, Cap refill < 2 sec. No: Murmur Present - Respiratory Respiratory: Distress, Labored, Wheezing (markedly reduced airflow globally; expiratory wheeze) - Abdomen Abdomen: Normal Bowel sounds. No: Tender to palpation - Derm Derm: Normal color, Warm and dry. No: Rash - Extremities Extremities: Normal. No: Deformity, Tenderness - Neuro Neuro: Alert and Oriented X 3, CNII-XII intact - GCS Eye Opening: Spontaneous Motor: Obeys Commands Verbal: Oriented Total: 15 Results - Vitals Vitals: Vital Signs - 24 hr 09/26/21 09/26/21 09/26/21 15:32 15:35 15:40 Temperature 36 C L 36.5 C Heart Rate 99 99 92 Respiratory 28 H 28 H 26 H Rate Blood Pressure 182/90 H 182/90 H O2 Saturation 91 L 91 L 09/26/21 09/26/21 09/26/21 16:05 16:30 16:54 Temperature Heart Rate 86 95 100 Respiratory 24 24 27 H Rate Blood Pressure 158/97 H 148/73 H 148/73 H O2 Saturation 100 100 87 L 09/26/21 17:00 Temperature Heart Rate 100 Respiratory 26 H Rate Blood Pressure 135/77 H O2 Saturation 94 Oxygen O2 Source Nasal cannula Oxygen Flow Rate 2 - EKG (time done) 1544 Rate: Rate (enter#) (92) Rhythm: NSR [place]: RAD Intervals: Normal IN, Prolonged QT Ischemia: Non specific changes Compare to prior EKG: Unchanged from prior EKG Computer interpretation: Agree with computer - Labs Labs: Laboratory Tests 09/26/21 09/26/21 09/26/21 15:50 15:50 15:50 WBC 9.6 RBC 4.62 L Hgb 13.9 L Hct 43.1 MCV 93.3 MCH 30.1 MCHC 32.3 RDW 13.6 Plt Count 322 MPV 9.8 Neut # (Auto) 6.9 H Lymph # (Auto) 1.1 L [place] # (Auto) 0.9 Eos # (Auto) 0.6 Baso # (Auto) 0.0 Absolute Nucleated RBC 0.00 Nucleated RBC % 0.0 PT 11.5 INR 1.0 Sodium 131 L Potassium 4.1 Chloride 93 L Carbon Dioxide 30 Anion Gap 8.0 BUN 12 Creatinine 0.7 Estimated GFR (MDRD) 111 Glucose 110 H Calcium 8.5 Total Bilirubin 0.5 AST 19 ALT 16 Alkaline Phosphatase 90 Troponin I High Sens B-Natriuretic Peptide Total Protein 7.2 Albumin 3.1 L Globulin 4.1 Albumin/Globulin Ratio 0.8 L Lipase 23 09/26/21 09/26/21 15:50 15:50 WBC RBC Hgb Hct MCV MCH MCHC RDW Plt Count MPV Neut # (Auto) Lymph # (Auto) [place] # (Auto) Eos # (Auto) Baso # (Auto) Absolute Nucleated RBC Nucleated RBC % PT INR Sodium Potassium Chloride Carbon Dioxide Anion Gap BUN Creatinine Estimated GFR (MDRD) Glucose Calcium Total Bilirubin AST ALT Alkaline Phosphatase Troponin I High Sens 6.9 B-Natriuretic Peptide 32 Total Protein Albumin Globulin Albumin/Globulin Ratio Lipase - Rads (name of study) CXR Radiology: Final report received (COPD pattern. No acute cardiopulmonary process.) PD MEDICAL DECISION MAKING - ED course Complexity details: reviewed results, re-evaluated patient, considered differential, d/w patient ED course: 71-year-old male who has a history of COPD on oxygen typically at nighttime only presents emergency department with 3 days of progressively worsening shortness of air. On presentation this gentleman is very labored moving air very poorly has saturations in the 90 to 91%. He has been wearing oxygen continuously now for 2 days. Patient reports that his children are painting his house in the [place] fumes have caused the COPD exacerbation. Screening EKG is nonischemic. His chest x-ray shows a pattern consistent with COPD but no acute focal pulmonary infiltrates. He was initially placed on an hour-long albuterol nebulizer with Atrovent. About 20 minutes into the nebulizer he is breathing much more comfortably moving air well. Saturations are now in the mid 90s. We will continue to reassess as a nebulizer completes. He was given 125 mg of Solu-Medrol IV. 1645: Hour-long albuterol nebulizer has been completed. Patient's respiratory distress is improved though he still remains somewhat labored and mildly tachypneic at the bedside. On room air his oxygen levels will drop to 87%. He was placed on 2 L nasal cannula with resultant rise and oxygen to 96%. This patient was presented for observation admission to hospitalist And show to. Plan and findings were discussed with the patient who is in agreement to observation admission. Departure - Departure Disposition: ED Place in Observation Clinical Impression: COPD with acute exacerbation, Hypoxia
[2021-09-26 15:54] LABS: BASOPHILS % (AUTO) 0.4 %; EOSINOPHILS # (AUTO) 0.6 10^3/uL (0.0-0.7); EOSINOPHILS % (AUTO) 6.6 %; HCT - HEMATOCRIT 43.1 % (42.0-52.0); HGB - HEMOGLOBIN 13.9 g/dL (14.0-18.0); LYMPHOCYTES # (AUTO) 1.1 10^3/uL (1.5-3.5); LYMPHOCYTES % (AUTO) 11.1 %; MEAN CORPUSCULAR HEMOGLOBIN 30.1 pg (27.0-31.0); MEAN CORPUSCULAR HGB CONC 32.3 g/dL (32.0-36.0); MEAN CORPUSCULAR VOLUME 93.3 fL (80.0-94.0); MEAN PLATELET VOLUME 9.8 fL (7.4-11.4); MONOCYTES # (AUTO) 0.9 10^3/uL (0.0-1.0); MONOCYTES % (AUTO) 9.5 %; NEUTROPHILS # (AUTO) 6.9 10^3/uL (1.5-6.6); PLT - PLATELET COUNT 322 10^3/uL (130-450); RED BLOOD COUNT 4.62 10^6/uL (4.70-6.10); RED CELL DISTRIBUTION WIDTH 13.6 % (12.0-15.0); WHITE BLOOD COUNT 9.6 x10^3/uL (4.8-10.8)
[2021-09-26 16:00] LABS: PT - PROTHROMBIN TIME 11.5 secs (9.9-12.6)
[2021-09-26 16:09] LABS: ALBUMIN 3.1 g/dL (3.2-5.5); ALBUMIN/GLOBULIN RATIO 0.8 (1.0-2.2); BILIRUBIN,TOTAL 0.5 mg/dL (0.2-1.0); CALCIUM 8.5 mg/dL (8.5-10.3); CREATININE 0.7 mg/dL (0.6-1.2); POTASSIUM 4.1 mmol/L (3.5-5.0); TOTAL PROTEIN 7.2 g/dL (6.7-8.2)
--- NOTE | 2021-09-26 16:17 | XRAY Report ---
PROCEDURE: Chest 1 View X-Ray INDICATIONS: Chest Pain TECHNIQUE: One view of the chest was acquired. COMPARISON: None FINDINGS: Surgical changes and devices: None. Lungs and pleura: No pleural effusions or pneumothorax. Lungs are clear. Mediastinum: Mediastinal contours appear normal. Heart size is normal. Bones and chest wall: No suspicious bony lesions. Overlying soft tissues appear unremarkable. IMPRESSION: No acute abnormality of the chest. Reviewed by: Pablo Cantu on 09/26/2021 3:16 PM [facility] Approved by: Pablo Cantu on 09/26/2021 3:16 PM [facility] Station ID: [id number]
[2021-09-26] MEDS ORDERED: ACETAMINOPHEN 325 MG TABLET PO PRN (16:57)
[2021-09-26] MEDS ORDERED: ONDANSETRON 4 MG/2 ML VIAL IVP PRN (16:57)
[2021-09-26] MEDS ORDERED: SODIUM CHLORIDE FLUSH 0.9% 10 ML SYRINGE IVP PRN (16:57)
[2021-09-26] MEDS ORDERED: FORMOTEROL FUMARATE NEB 20 MCG/2 ML INH STA (17:05)
--- NOTE | 2021-09-26 17:07 | HISTORY & PHYSICAL EXAMINATION ---
Chief Complaint - Chief Complaint Chief Complaint: dyspnea and hypoxia History of Present Illness - Admitted From Admitted From:: [facility] ED - History Obtained From Records Reviewed: yes History obtained from: patient Exam Limitations: none - History of Present Illness HPI Comment/Other: Patient is a 71-year-old male with medical history significant for COPD, hyperlipidemia, BPH, GERD who presented to the ED with complaint of dyspnea and wheezing. His symptoms started about 2 days ago but got worse today. He thinks it was triggered by the painting his children were doing indoors at home. He tried taking his albuterol with no relief. He was tripoding by the time he presented to the ED. On room air he was hypoxic with oxygen saturation as low as 87%. He was also tachypneic. He was given breathing treatment in the ED but still appeared to be in some distress. As a result he was presented for admission for further treatment. He has been coughing up clear sputum. He denied chest pain, abdominal pain, nausea, vomiting, fever or chills. The rest of his history was unremarkable. History - Past Medical History Cardiovascular: reports: High cholesterol, Other Respiratory: reports: COPD Neuro: reports: None, Other Endocrine/Autoimmune: reports: None GI: reports: None : reports: Benign prostate hypertrophy, Retention HEENT: reports: Chronic vision loss Psych: reports: Depression, Anxiety Musculoskeletal: reports: Chronic back pain Derm: reports: None MRSA Hx?: No - Past Surgical History General: reports: Colonoscopy, Other (Inguinal Hernia) Ortho: reports: Spine surgery - Family & Social History Family History: Mother: Cancer, Father: CAD Social History Notes: Insert Home with his family. He smokes 2 packs of cigarettes daily. Denies alcohol or recreational substance use. - POLST Patient has POLST: No POLST Status: Full Code Meds/Allgy - Home Medications Home Medications: Ambulatory Orders Medication Instructions Recorded Confirmed Albuterol Sulfate [Proair Hfa 1 - 2 puffs INH Q4H PRN 04/16/20 04/28/20 Inhaler] Fluticasone/Salmeterol [Advair 1 each IH BID 04/16/20 04/28/20 250-50 Diskus] Tamsulosin HCl [Flomax] 0.8 mg PO QPM 04/16/20 04/28/20 oxyCODONE/ACET 5/325 [Percocet 5 1 each PO Q4-6H PRN #25 tablet 04/28/20 mg/325 mg] Albuterol Sulf [Ventolin Hfa 1 - 2 puffs INH Q4HR PRN #1 inhaler 08/30/20 Inhaler] predniSONE [Deltasone] 10 mg PO [id number] #42 tab 08/30/20 Omeprazole 40 mg PO BID #60 cap 09/11/21 Sucralfate [Carafate] 1 gm PO ACHS #60 tablet 09/11/21 - Allergies Allergies/Adverse Reactions: Allergies Allergy/AdvReac Type Severity Reaction Status Date / Time hydrocodone Allergy Itching Verified 09/26/21 15:36 Penicillins Allergy Itching Verified 09/26/21 15:36 Review of Systems - Constitutional Constitutional: denies: Fatigue, Fever, Chills - Eyes Eyes: denies: Pain, Vision loss - Ears, Nose & Throat Ears, Nose & Throat: denies: Ear pain, Sore throat - Cardiovascular Cariovascular: denies: Irregular heart rate, Chest pain, Lightheadedness, Syncope - Respiratory Respiratory: reports: Cough, Sputum production, Wheezing, SOB at rest, SOB with exertion - Gastrointestinal Gastrointestinal: denies: Abdominal pain, Abdominal distention, Constipation, Diarrhea, Nausea, Vomiting - Genitourinary Genitourinary: denies: Dysuria, Frequency, Urgency - Musculoskeletal Musculoskeletal: denies: Muscle pain, Muscle aches - Integumentary Integumentary: denies: Rash, Pruritis, Lesions - Neurological Neurological: denies: Focal weakness, Headache, Dizziness - Psychiatric Psychiatric: denies: Depression, Anxiety - Endocrine Endocrine: denies: Polyuria, Polydypsia - Hematologic/Lymphatic Hematologic/Lymphatic: denies: Anemia, Bruising, Petechiae Prior Level of Functionality: Patient is independent of activities of daily living. He is the primary care provider for his who is wheelchair bound. Exam - Vital Signs Vital Signs: Vital Signs x48h Temp Pulse Resp BP Pulse Ox 09/26/21 17:00 100 26 H 135/77 H 94 09/26/21 16:54 100 27 H 148/73 H 87 L 09/26/21 16:30 95 24 148/73 H 100 09/26/21 16:05 86 24 158/97 H 100 09/26/21 15:40 92 26 H 12/19/21 15:35 36.5 C 99 28 H 182/90 H 91 L 09/26/21 15:32 36 C L 99 28 H 182/90 H 91 L - Physical Exam General Appearance: positive: Alert, Mild distress Eyes Bilateral: positive: PERRL, EOMI ENT: positive: No signs of dehydration Neck: positive: No JVD, Trachea midline Respiratory: positive: Chest non-tender, Wheezes (mild), Other (Mild to moderate respiratory distress) Cardiovascular: positive: Regular rate & rhythm, No murmur Abdomen: positive: Non-tender, No organomegaly, Nml bowel sounds, No distention. negative: Guarding, Rebound Back: positive: Nml inspection Skin: positive: Color nml, No rash, Warm, Dry Extremities: positive: Non-tender, Full ROM, Nml appearance, No pedal edema Neurologic/Psychiatric: positive: Oriented x3, Mood/affect nml Conclusion/Plan - Problem List (1) Acute respiratory failure with hypoxia Conclusion/Plan: Secondary to COPD exacerbation. This was likely triggered by indoor painting which was being done at his house Patient normally uses 2 L of oxygen via nasal cannula at night. In the emergency room patient's oxygen saturation was 87% on room air. Currently on 1 L of oxygen via nasal cannula with oxygen saturation at 93%. Desonide and formoterol ordered twice daily. DuoNeb every 3 hours as needed Solu-Medrol 125 mg 3 times daily for 3 doses. (2) COPD exacerbation Conclusion/Plan: This was likely triggered by indoor painting which was being done at his house Patient normally uses 2 L of oxygen via nasal cannula at night. In the emergency room patient's oxygen saturation was 87% on room air. Currently on 1 L of oxygen via nasal cannula with oxygen saturation at 93%. Desonide and formoterol ordered twice daily. DuoNeb every 3 hours as needed Solu-Medrol 125 mg 3 times daily for 3 doses. (3) GERD (gastroesophageal reflux disease) Conclusion/Plan: Protonix 40 mg daily AC and ordered. (4) BPH (benign prostatic hyperplasia) Conclusion/Plan: Tamsulosin 0.8 mg p.o. every afternoon ordered. (5) Hyperlipidemia Conclusion/Plan: Patient reports that he is no longer on statin because his cholesterol levels improved enough to come off of it. (6) Urinary retention Conclusion/Plan: Possibly secondary to BPH. Patient has Mims catheter in place. He is to follow-up with a urologist on 10/14/2021. - Lab Results Fish Bones: 09/26/21 15:50 09/26/21 15:50 Core Measures - Anticipated LOS I expect patient to be DC'd or transferred within 96 hours.: Yes - DVT/VTE - Prophylaxis VTE/DVT Device ordered at admit?: Yes VTE/DVT Prophylaxis med ordered at admit?: Yes
[2021-09-26 17:37] LABS: CORONAVIRUS 229E-RESP PCR NOT DETECTED; CORONAVIRUS HKU1-RESP PCR NOT DETECTED; CORONAVIRUS NL63-RESP PCR NOT DETECTED; CORONAVIRUS OC43-RESP PCR NOT DETECTED; HUMAN METAPNEUMOVIRUS NOT DETECTED; INFLUENZA A- RESP PCR PANEL NOT DETECTED; INFLUENZA B - RESP PCR PANEL NOT DETECTED; PARAINFLUENZA VIRUS 1 NOT DETECTED; PARAINFLUENZA VIRUS 2 NOT DETECTED; PARAINFLUENZA VIRUS 3 NOT DETECTED; RHINOVIRUS/ENTEROVIRUS NOT DETECTED; SARS-CoV-2 -RESP PCR PANEL NOT DETECTED
[2021-09-26 17:38] LABS: B. PARAPERTUSSIS- RESP PCR PAN NOT DETECTED; B. PERTUSSIS- RESP PCR PANEL NOT DETECTED; C. PNEUMONIAE- RESP PCR PANEL NOT DETECTED; M. PNEUMONIAE- RESP PCR PANEL NOT DETECTED; PARAINFLUENZA VIRUS 4 NOT DETECTED; RSV- RESP PCR PANEL NOT DETECTED
[2021-09-26] MEDS: BUDESONIDE 0.5 MG/2 ML NEB INH SCH (18:12)
[2021-09-26] MEDS: IPRATROPIUM/ALBUTEROL 3 ML NEB INH PRN ×2 (18:12→22:54)
[2021-09-26] MEDS ORDERED: hydrALAZINE INJ 20 MG/ML VIAL IVP PRN (18:23)
[2021-09-26] MEDS: FORMOTEROL FUMARATE NEB 20 MCG/2 ML INH SCH (18:26)
[2021-09-26] MEDS: SODIUM CHLORIDE FLUSH 0.9% 10 ML SYRINGE IVP SCH (20:04)
[2021-09-26] MEDS: PANTOPRAZOLE 40 MG TABLET PO SCH (20:04)
[2021-09-26] MEDS: methylPREDNISolone SUCCINATE 125 MG/2 ML VIAL IVP SCH (22:21)
[2021-09-27] MEDS: SODIUM CHLORIDE FLUSH 0.9% 10 ML SYRINGE IVP SCH ×2 (00:08→08:02)
[2021-09-27 05:49] LABS: BASOPHILS % (AUTO) 0.1 %; HCT - HEMATOCRIT 40.6 % (42.0-52.0); HGB - HEMOGLOBIN 13.5 g/dL (14.0-18.0); LYMPHOCYTES # (AUTO) 0.4 10^3/uL (1.5-3.5); LYMPHOCYTES % (AUTO) 4.2 %; MEAN CORPUSCULAR HEMOGLOBIN 30.7 pg (27.0-31.0); MEAN CORPUSCULAR HGB CONC 33.3 g/dL (32.0-36.0); MEAN CORPUSCULAR VOLUME 92.3 fL (80.0-94.0); MEAN PLATELET VOLUME 9.9 fL (7.4-11.4); MONOCYTES # (AUTO) 0.1 10^3/uL (0.0-1.0); NEUTROPHILS # (AUTO) 9.1 10^3/uL (1.5-6.6); NEUTROPHILS % (AUTO) 94.2 %; PLT - PLATELET COUNT 302 10^3/uL (130-450); RED CELL DISTRIBUTION WIDTH 13.6 % (12.0-15.0); WHITE BLOOD COUNT 9.7 x10^3/uL (4.8-10.8)
[2021-09-27 05:56] LABS: CALCIUM 8.6 mg/dL (8.5-10.3); CREATININE 0.8 mg/dL (0.6-1.2); POTASSIUM 4.8 mmol/L (3.5-5.0)
[2021-09-27] MEDS: PANTOPRAZOLE 40 MG TABLET PO SCH (06:00)
[2021-09-27] MEDS: methylPREDNISolone SUCCINATE 125 MG/2 ML VIAL IVP SCH (06:00)
[2021-09-27] MEDS: FORMOTEROL FUMARATE NEB 20 MCG/2 ML INH SCH (06:20)
[2021-09-27] MEDS: IPRATROPIUM/ALBUTEROL 3 ML NEB INH PRN ×2 (06:21→10:59)
[2021-09-27] MEDS: BUDESONIDE 0.5 MG/2 ML NEB INH SCH (06:21)
--- NOTE | 2021-09-27 08:02 | Discharge Plan ---
Discharge Plan Problem Reviewed?: Yes Disposition: Home, Self Care Condition: Stable Diet: Cardiac Activity Restrictions: Activity as Tolerated Health Concerns: You were admitted on 09/26/2021 with difficulty in breathing due to COPD exacerbation. This was triggered by painting that was being done indoors at home. You were admitted to the medical floor and treated with IV steroids. He also received breathing treatments which included DuoNeb, budesonide, formoterol. Over the course of the night and the morning your breathing improved significantly. In the morning you were breathing comfortably on room air with appreciable breath sounds and no significant wheeze. Consequently you are being discharged home in stable condition. You are to resume your home pulmonary regimen and home medications for other chronic conditions. You may follow-up with your primary care physician as needed. The above plan was discussed with you, you expressed understanding and agreeable with the plan. No Smoking: If you smoke, Please STOP! Call for help. Follow-up with: Esther Wisdom MD [Primary Care Provider] -
--- NOTE | 2021-09-27 08:02 | DISCHARGE SUMMARY ---
Discharge Summary Admit Date: 09/26/21 Discharge Date: 09/27/21 Discharging Provider: Brii Roberts Primary Care Provider: Esther Wisdom Condition at Discharge: Stable Discharge Disposition: 01 Home, Self Care - DIAGNOSES Admission Diagnoses: Acute respiratory failure with hypoxia COPD exacerbation GERD BPH Hyperlipidemia Urinary retention Discharge Diagnoses with Status of Each Condition: Acute respiratory failure with hypoxia: Acute on chronic. Improved/resolved. COPD exacerbation: Acute on chronic. Improved/resolved. GERD: Chronic. Continue home medications BPH: Chronic. Continue home medications Hyperlipidemia: Chronic. Patient no longer takes any medication. Urinary retention: Acute on likely chronic. Patient has a Mims catheter in place. Patient follow-up with urology on 10/14/21. - HPI History of Present Illness: Patient is a 71-year-old male with medical history significant for COPD, hyperlipidemia, BPH, GERD who presented to the ED with complaint of dyspnea and wheezing. His symptoms started about 2 days ago but got worse today. He thinks it was triggered by the painting his children were doing indoors at home. He tried taking his albuterol with no relief. He was tripoding by the time he presented to the ED. On room air he was hypoxic with oxygen saturation as low as 87%. He was also tachypneic. He was given breathing treatment in the ED but still appeared to be in some distress. As a result he was presented for admission for further treatment. He has been coughing up clear sputum. He denied chest pain, abdominal pain, nausea, vomiting, fever or chills. The rest of his history was unremarkable. - HOSPITAL COURSE Hospital Course: Patient was admitted to the [facility] floor and maintained on Solu-Medrol 125 mg IV 3 times daily for 3 doses. DuoNeb every 3 hours as needed was also ordered. He also received budesonide and Perforomist. Over the course of the patient's observation hospital stay his rashes status improved significantly. By the time of discharge he was breathing comfortably on room air. There were no wheezes on auscultation of the lungs. He had Mims catheter in place at time of admission. He is to follow-up with urology in the outpatient setting on 10/14/2021 for further management. He was discharged in stable condition. He may follow-up with his primary care physician as needed. - ALLERGIES Allergies/Adverse Reactions: Allergies Allergy/AdvReac Type Severity Reaction Status Date / Time hydrocodone Allergy Itching Verified 09/26/21 15:36 Penicillins Allergy Itching Verified 09/26/21 15:36 - MEDICATIONS Home Medications: Ambulatory Orders Medication Instructions Recorded Confirmed Albuterol Sulfate [Proair Hfa 2 puffs INH Q4H PRN 04/16/20 04/28/20 Inhaler] Tamsulosin HCl [Flomax] 0.8 mg PO QPM 04/16/20 04/28/20 Fluticasone/Salmeterol [Advair 1 each INH BID 09/27/21 500-50 Diskus] - PHYSICAL EXAM AT DISCHARGE General Appearance: positive: No acute distress, Alert Eyes Bilateral: positive: PERRL, EOMI ENT: positive: No signs of dehydration Neck: positive: No JVD, Trachea midline Respiratory: positive: Chest non-tender, No respiratory distress, Breath sounds nml. negative: Wheezes, Rales, Rhonchi Cardiovascular: positive: Regular rate & rhythm, No murmur Abdomen: positive: Non-tender, No organomegaly, Nml bowel sounds, No distention. negative: Guarding, Rebound Back: positive: Nml inspection Skin: positive: Color nml, No rash, Warm, Dry Extremities: positive: Non-tender, Full ROM, Nml appearance, No pedal edema Neurologic/Psychiatric: positive: Oriented x3, Mood/affect nml - LABS Result Diagrams: 09/27/21 05:40 09/27/21 05:40 - TIME SPENT Time Spent in Discharge (Minutes): 20
[2021-09-27] MEDS ORDERED: TAMSULOSIN 0.4 MG CAPSULE PO SCH (09:00)
[2021-09-27] MEDS ORDERED: NICOTINE 14 MG PATCH TOP SCH (09:00)
[2021-09-27] MEDS ORDERED: ENOXAPARIN 40 MG/0.4 ML SYRINGE SUBQ SCH (09:00)
[2021-09-27 13:28] VITALS: BP 125/68
== END 2021-09-27 13:54 | disposition home or self-care (01) ==
LOC: ED 15:27 → MS2 16:57
PROVIDERS: ADMIT Internal Medicine; ATTEND Internal Medicine
DX: J96.01 Acute respiratory failure with hypoxia (principal); J44.1 Chronic obstructive pulmonary disease with (acute) exacerbation; I10 Essential (primary) hypertension; E78.00 Pure hypercholesterolemia, unspecified; F17.210 Nicotine dependence, cigarettes, uncomplicated; K21.9 Gastro-esophageal reflux disease without esophagitis; N40.1 Benign prostatic hyperplasia with lower urinary tract symptoms; R33.8 Other retention of urine; Z20.822 Contact with and (suspected) exposure to COVID-19; Z79.899 Other long term (current) drug therapy; Z96.0 Presence of urogenital implants; Z99.81 Dependence on supplemental oxygen
CPT/HCPCS: 36415; 71045; 80048; 80053; 83690; 83880; 84484; 85025; 85610; 87631; 93005; 94640; 94664; 96372; 96374; 96376; 99284; 99285; A9270; G0378; J1650; J7626; 0202U

== ENCOUNTER 2021-10-31 17:00 | Emergency (ER) | payer MEDICARE, OTHER ==
[2021-10-31 17:08] VITALS: BP 161/79
--- NOTE | 2021-10-31 17:24 | ED Physician Documentation ---
History of Present Illness - Stated complaint Stated Complaint: MALE - Chief complaint Chief Complaint: Abd Pain - History obtained from History obtained from: Patient - History of Present Illness Timing: How many days ago (2) Pain level max: 5 Pain level now: 5 - Additonal information Additional information: 71-year-old male presents to the emergency department stating that he has had an indwelling Mims catheter for the last 2 months. He states a decrease in drainage over the past 48 hours. It seems to drain better when lying down. He is complaining of suprapubic pain and abdominal pressure. Nothing makes it better or worse. He states the catheter was changed about 2 weeks ago Review of Systems Constitutional: denies: Fever, Chills Cardiac: denies: Chest pain / pressure Respiratory: denies: Cough GI: reports: Abdominal Pain (suprapubic, pressure). denies: Vomiting, Diarrhea Skin: denies: Rash Musculoskeletal: denies: Neck pain, Back pain Neurologic: denies: Headache PD PAST MEDICAL HISTORY - Past Medical History Cardiovascular: Hypertension, High cholesterol, Other Respiratory: COPD Neuro: None, Other Endocrine/Autoimmune: None GI: None : Benign prostate hypertrophy, Retention, Indwelling catheter HEENT: Chronic vision loss Psych: Depression, Anxiety Musculoskeletal: Chronic back pain Derm: None - Past Surgical History Past Surgical History: Yes General: Colonoscopy, Other Ortho: Spine surgery - Present Medications Home Medications: Ambulatory Orders Medication Instructions Recorded Confirmed Albuterol Sulfate [Proair Hfa 2 puffs INH Q4H PRN 04/16/20 09/27/21 Inhaler] Tamsulosin HCl [Flomax] 0.8 mg PO QPM 04/16/20 09/27/21 Fluticasone/Salmeterol [Advair 1 each INH BID 09/27/21 09/27/21 500-50 Diskus] Oxybutynin [Ditropan] 5 mg PO BID #14 tablet 10/31/21 - Allergies Allergies/Adverse Reactions: Allergies Allergy/AdvReac Type Severity Reaction Status Date / Time hydrocodone Allergy Itching Verified 10/31/21 17:08 Penicillins Allergy Itching Verified 10/31/21 17:08 - Social History Does the pt smoke?: Yes Smoking Status: Current every day smoker Does the pt drink ETOH?: No Does the pt have substance abuse?: No - Immunizations Immunizations are current?: Yes - POLST Patient has POLST: No POLST Status: Full Code PD ED PE NORMAL - Vitals Vital signs reviewed: Yes - General General: Alert and oriented X 3, No acute distress - HEENT HEENT: Moist mucous membranes - Neck Neck: Supple, no meningeal sign - Cardiac Cardiac: RRR - Respiratory Respiratory: No respiratory distress, Clear bilaterally - Abdomen Abdomen: Soft, Non distended, Other (Tender palpation suprapubic. No peritoneal signs) - Male Male : Other (Mims catheter in place, no bleeding. Normal external exam) - Derm Derm: Warm and dry - Neuro Neuro: Alert and oriented X 3 Results - Vitals Vitals: Vital Signs - 24 hr 10/31/21 17:05 Temperature 36.1 C L Heart Rate 95 Respiratory 20 Rate Blood Pressure 161/79 H O2 Saturation 94 Oxygen O2 Source Room air PD MEDICAL DECISION MAKING - ED course Complexity details: reviewed results, re-evaluated patient, considered differential, d/w patient ED course: Mims catheter was changed and the pressure was relieved in his bladder. Patient currently asymptomatic Did not have a significant amount of urine however. Bladder scan shows a residual urine of about 30 mL. Possibility he has having bladder spasms. We will trial on Ditropan and have him follow-up with his doctor and urologist for further care. Patient counseled regarding signs and symptoms for which I believe and urgent re-evaluation would be necessary. Patient with good understanding of and agreement to plan and is comfortable going home at this time This document was made in part using voice recognition software. While efforts are made to proofread this document, sound alike and grammatical errors may occur. Departure - Departure Disposition: 01 Home, Self Care Clinical Impression: Bladder spasms Condition: Good Instructions: ED Catheter Care Mims Follow-Up: your,doctor in 1 week [Other] CYRIL GODDARD MD [Physician No Access] - Prescriptions: Oxybutynin [Ditropan] 5 mg PO BID #14 tablet Comments: We will trial you on Ditropan for the next week and see if this helps your spasms. Please follow-up with your doctor for further care. Return if you worsen [place]
[2021-10-31] MEDS ORDERED: OXYBUTYNIN 5MG TABLET PO STA (17:36)
== END 2021-10-31 18:32 | disposition home or self-care (01) ==
LOC: ED 17:00
DX: N32.89 Other specified disorders of bladder (principal); I10 Essential (primary) hypertension; F17.200 Nicotine dependence, unspecified, uncomplicated
CPT/HCPCS: 51702; 99283; A9270

== ENCOUNTER 2022-03-08 13:44 | Emergency (ER) | payer MEDICARE, OTHER ==
[2022-03-08] MEDS ORDERED: ALBUTEROL NEB 2.5 MG/3 ML INH STA (14:19)
[2022-03-08] MEDS ORDERED: DEXAMETHASONE 10 MG/ML VIAL IV STA (14:19)
[2022-03-08] MEDS ORDERED: IPRATROPIUM/ALBUTEROL 3 ML NEB INH STA (14:19)
--- NOTE | 2022-03-08 14:52 | XRAY Report ---
PROCEDURE: Chest 1 View X-Ray INDICATIONS: chest pain TECHNIQUE: One view of the chest was acquired. COMPARISON: Chest x-ray 09/26/2021 FINDINGS: Surgical changes and devices: None. Lungs and pleura: No pleural effusions or pneumothorax. Lungs are clear. Lungs are hyperexpanded w ith flattened hemidiaphragms, consistent with COPD. Mediastinum: Mediastinal contours appear normal. Heart size is normal. Bones and chest wall: No suspicious bony lesions. Overlying soft tissues appear unremarkable. IMPRESSION: No acute pulmonary process. Reviewed by: Dayna Li MD on 03/08/2022 2:51 PM PDT Approved by: Dayna Li MD on 03/08/2022 2:51 PM PDT Station ID: [id number]
--- NOTE | 2022-03-08 15:35 | ED Physician Documentation ---
PD HPI DYSPNEA - Stated complaint Stated Complaint: SOA - Chief complaint Chief Complaint: Resp - History obtained from History obtained from: Patient - Additional information Additional information: PT comes to the ED with CC of dyspnea and wheezing for the past couple of days. He denies fever, increased cough, or swelling. He has a h/o COPD, but no h/o cardiac issues or other lung disease. No CP. Pt uses PRN home O2 and inhalers. No sick contacts. Covid vaccinated. Review of Systems Ten Systems: 10 systems reviewed and negative Constitutional: reports: Reviewed and negative Eyes: reports: Reviewed and negative Ears: reports: Reviewed and negative Nose: reports: Reviewed and negative Throat: reports: Reviewed and negative Cardiac: reports: Reviewed and negative Respiratory: reports: Dyspnea, Wheezing GI: reports: Reviewed and negative : reports: Reviewed and negative Skin: reports: Reviewed and negative Musculoskeletal: reports: Reviewed and negative Neurologic: reports: Reviewed and negative Psychiatric: reports: Reviewed and negative Endocrine: reports: Reviewed and negative Immunocompromised: reports: Reviewed and negative PD PAST MEDICAL HISTORY - Past Medical History Past Medical History: Yes Cardiovascular: Hypertension, High cholesterol, Other Respiratory: COPD, Shortness of breath Neuro: None, Other Endocrine/Autoimmune: None GI: None : Benign prostate hypertrophy, Retention, Indwelling catheter HEENT: Chronic vision loss Psych: Depression, Anxiety Musculoskeletal: Chronic back pain Derm: None - Past Surgical History Past Surgical History: Yes General: Colonoscopy, Other Ortho: Spine surgery - Present Medications Home Medications: Ambulatory Orders Medication Instructions Recorded Confirmed Albuterol Sulfate [Proair Hfa 2 puffs INH Q4H PRN 04/16/20 03/08/22 Inhaler] Tamsulosin HCl [Flomax] 0.8 mg PO QPM 04/16/20 03/08/22 Fluticasone/Salmeterol [Advair 1 each INH BID 09/27/21 03/08/22 500-50 Diskus] Oxybutynin [Ditropan] 5 mg PO BID #14 tablet 10/31/21 03/08/22 Tiotropium [place] [Spiriva] 1 puffs INH DAILY 03/08/22 03/08/22 predniSONE [Deltasone] 60 mg PO DAILY 5 Days #15 tablet 03/08/22 - Allergies Allergies/Adverse Reactions: Allergies Allergy/AdvReac Type Severity Reaction Status Date / Time hydrocodone Allergy Itching Verified 03/08/22 13:46 Penicillins Allergy Itching Verified 03/08/22 13:46 - Social History Does the pt smoke?: Yes Smoking Status: Current every day smoker Does the pt drink ETOH?: No Does the pt have substance abuse?: No - Immunizations Immunizations are current?: Yes - POLST Patient has POLST: No POLST Status: Full Code PD ED PE NORMAL - Vitals Vital signs reviewed: Yes - General General: Alert and oriented X 3, Well developed/nourished, Other (Mild respiratory distress) - HEENT HEENT: PERRL - Cardiac Cardiac: RRR, No murmur - Respiratory Respiratory: Other (Moderately labored respirations, but pt is speaking in long phrases. Moderate expiratory wheezes and decreased air movement.) - Abdomen Abdomen: Normal bowel sounds, Soft, Non tender, Non distended - Derm Derm: Warm and dry - Extremities Extremities: No deformity - Neuro Neuro: Alert and oriented X 3 - Psych Psych: Normal mood, Normal affect Results - Vitals Vitals: Oxygen O2 Source Nasal cannula Oxygen Flow Rate 2 - Rads (name of study) CXR Radiology: Final report received, EMP read indepedently, See rad report (nad) PD MEDICAL DECISION MAKING - ED course Complexity details: reviewed results, re-evaluated patient, considered differential, d/w patient ED course: Pt was worked up with CXR and treated with nebs and steroids. He was found to be feeling much better, with improved breath sounds and sats of 98% on his baseline 2L O2. I felt he was stable for d/c home. We have discussed use of nebs/inhalers and steroids at home. Departure - Departure Disposition: 01 Home, Self Care Clinical Impression: COPD exacerbation Condition: Stable Instructions: ED COPD Flare Prescriptions: predniSONE [Deltasone] 60 mg PO DAILY 5 Days #15 tablet Discharge Date/Time: 03/08/22 16:34
[2022-03-08 16:06] VITALS: BP 111/88
== END 2022-03-08 16:34 | disposition home or self-care (01) ==
LOC: ED 13:44
DX: J44.1 Chronic obstructive pulmonary disease with (acute) exacerbation (principal); I10 Essential (primary) hypertension; F17.200 Nicotine dependence, unspecified, uncomplicated
CPT/HCPCS: 36415; 94640; 99283

== ENCOUNTER 2022-09-06 15:27 | Emergency (ER) | payer MEDICARE, OTHER ==
[2022-09-06 16:35] LABS: B. PARAPERTUSSIS- RESP PCR PAN NOT DETECTED; B. PERTUSSIS- RESP PCR PANEL NOT DETECTED; C. PNEUMONIAE- RESP PCR PANEL NOT DETECTED; CORONAVIRUS 229E-RESP PCR NOT DETECTED; CORONAVIRUS HKU1-RESP PCR NOT DETECTED; CORONAVIRUS NL63-RESP PCR NOT DETECTED; CORONAVIRUS OC43-RESP PCR NOT DETECTED; HUMAN METAPNEUMOVIRUS NOT DETECTED; INFLUENZA A H3- RESP PCR PANEL DETECTED; INFLUENZA B - RESP PCR PANEL NOT DETECTED; M. PNEUMONIAE- RESP PCR PANEL NOT DETECTED; PARAINFLUENZA VIRUS 1 NOT DETECTED; PARAINFLUENZA VIRUS 2 NOT DETECTED; PARAINFLUENZA VIRUS 3 NOT DETECTED; PARAINFLUENZA VIRUS 4 NOT DETECTED; RHINOVIRUS/ENTEROVIRUS NOT DETECTED; RSV- RESP PCR PANEL NOT DETECTED; SARS-CoV-2 -RESP PCR PANEL NOT DETECTED
--- NOTE | 2022-09-06 16:35 | XRAY Report ---
PROCEDURE: Chest 1 View X-Ray INDICATIONS: SOA TECHNIQUE: One view of the chest was acquired. COMPARISON: 02/24/2021 and 03/08/2022. FINDINGS: Surgical changes and devices: None. Lungs and pleura: No pleural effusions or pneumothorax. Lungs are clear. Lungs hyperinflated suggest ing COPD. Mediastinum: Mediastinal contours appear normal. Heart size is normal. Bones and chest wall: No suspicious bony lesions. Overlying soft tissues appear unremarkable. IMPRESSION: No acute cardiopulmonary disease process. Reviewed by: Sharita Leroy MD, PhD on 09/06/2022 4:34 PM PST Approved by: Sharita Leroy MD, PhD on 09/06/2022 4:34 PM PST Station ID: [id number]
--- NOTE | 2022-09-06 16:51 | ED Physician Documentation ---
History of Present Illness - Stated complaint Stated Complaint: SORE THROAT, CONGESTION - Chief complaint Chief Complaint: Resp - Additonal information Additional information: This is a 72-year-old male with past medical history of COPD who is on as needed oxygen per nasal cannula at home, typically 2 L with activity or at night who presents with 3 days of cough, nasal congestion and increasing shortness of breath today with wheezing. He has been using his home Spiriva as well as albuterol x1 without improvement, has not had any neb treatments. He has not had a fever to his knowledge, denies any chest pain, no abdominal pain, no na usea vomiting or diarrhea. No known sick contacts. Review of Systems Ten Systems: 10 systems reviewed and negative (Except as noted in HPI) PD PAST MEDICAL HISTORY - Past Medical History Past Medical History: Yes Cardiovascular: Hypertension, High cholesterol, Other Respiratory: COPD, Shortness of breath Neuro: None, Other Endocrine/Autoimmune: None GI: None : Benign prostate hypertrophy, Retention, Indwelling catheter HEENT: Chronic vision loss Psych: Depression, Anxiety Musculoskeletal: Chronic back pain Derm: None - Past Surgical History Past Surgical History: Yes General: Colonoscopy, Other Ortho: Spine surgery - Present Medications Home Medications: Ambulatory Orders Medication Instructions Recorded Confirmed Albuterol Sulfate [Proair Hfa 2 puffs INH Q4H PRN 04/16/20 03/08/22 Inhaler] Tamsulosin HCl [Flomax] 0.8 mg PO QPM 04/16/20 03/08/22 Fluticasone/Salmeterol [Advair 1 each INH BID 09/27/21 03/08/22 500-50 Diskus] Oxybutynin [Ditropan] 5 mg PO BID #14 tablet 10/31/21 03/08/22 Tiotropium [place] [Spiriva] 1 puffs INH DAILY 03/08/22 03/08/22 predniSONE [Deltasone] 60 mg PO DAILY 5 Days #15 tablet 03/08/22 Oseltamivir Phosphate [Tamiflu] 75 mg PO BID 5 Days #9 cap 09/06/22 predniSONE [Deltasone] 10 mg PO [id number] #42 tab 09/06/22 - Allergies Allergies/Adverse Reactions: Allergies Allergy/AdvReac Type Severity Reaction Status Date / Time hydrocodone Allergy Itching Verified 09/06/22 15:37 Penicillins Allergy Itching Verified 09/06/22 15:37 - Social History Does the pt smoke?: Yes Smoking Status: Current every day smoker Does the pt drink ETOH?: No Does the pt have substance abuse?: No - Immunizations Immunizations are current?: Yes - POLST Patient has POLST: No POLST Status: Full Code PD ED PE NORMAL - Vitals Vital signs reviewed: Yes - General General: Alert and oriented X 3, No acute distress, Well developed/nourished - HEENT HEENT: Atraumatic, Moist mucous membranes, Pharynx benign - Neck Neck: Supple, no meningeal sign, No JVD - Cardiac Cardiac: RRR, No murmur, No gallop, No rub - Respiratory Respiratory: Other (Patient is mildly labored, with expiratory wheezes bilaterally, no crackles.) - Abdomen Abdomen: Normal bowel sounds, Soft, Non tender, Non distended - Derm Derm: Normal color, Warm and dry, No rash - Extremities Extremities: No deformity, No edema - Neuro Neuro: Alert and oriented X 3 Eye Opening: Spontaneous Motor: Obeys Commands Verbal: Oriented GCS Score: 15 - Psych Psych: Normal mood, Normal affect Results - Vitals Vitals: Vital Signs - 24 hr 09/06/22 09/06/22 09/06/22 15:32 15:36 17:36 Temperature 37 C 37.0 C Heart Rate 106 H 106 H 77 Respiratory 20 20 18 Rate Blood Pressure 175/88 H 175/88 H 160/80 H O2 Saturation 99 99 99 If not protocol 2 2 : Oxygen Flow, liters/minute 09/06/22 17:50 Temperature Heart Rate 77 Respiratory 22 Rate Blood Pressure O2 Saturation If not protocol 2 : Oxygen Flow, liters/minute Oxygen O2 Source Nasal cannula Oxygen Flow Rate 2 - Labs Labs: Laboratory Tests 09/06/22 15:38 Nasal Adenovirus (PCR) NOT DETECTED Nasal B. parapertussis DNA (PCR) NOT DETECTED Nasal Coronavir 229E PCR NOT DETECTED Nasal Coronavir HKU1 PCR NOT DETECTED Nasal Coronavir NL63 PCR NOT DETECTED Nasal Coronavir OC43 PCR NOT DETECTED Nasal Enterovir/Rhinovir PCR NOT DETECTED Nasal Influenza A H3 PCR DETECTED A Nasal Influenza B PCR NOT DETECTED Nasal Parainfluen 1 PCR NOT DETECTED Nasal Parainfluen 2 PCR NOT DETECTED Nasal Parainfluen 3 PCR NOT DETECTED Nasal Parainfluen 4 PCR NOT DETECTED Nasal RSV (PCR) NOT DETECTED Nasal B.pertussis DNA PCR NOT DETECTED Nasal C.pneumoniae (PCR) NOT DETECTED [place] Human Metapneumo PCR NOT DETECTED Nasal M.pneumoniae (PCR) NOT DETECTED Nasal SARS-CoV-2 (PCR) NOT DETECTED PD MEDICAL DECISION MAKING - ED course Complexity details: reviewed results, re-evaluated patient, considered differential, d/w patient ED course: This is a very pleasant 72-year-old Male who has a history of COPD on 2 L of oxygen per nasal cannula he presented with 3 days of viral URI symptoms with increasing shortness of breath today. The patient is stable. On physical exam, oxygenating well on room air initially mildly tachypneic and had diffuse expiratory wheezing. He was also noted to be influenza A positive. He was given a single DuoNeb and a dose of p.o. prednisone with significant improvement in his lung sounds and respiratory effort. He felt substantially better after single treatment and desired to go home. He did test positive for flu, chest x- ray is negative. Symptoms are likely due to influenza A causing a mild exacerbation of his COPD. Given his risk factors I do think he is a candidate for oseltamivir which was prescribed to the patient and first dose was given here. He will also be sent with a short course of steroids for COPD. He has oxygen at home to use as needed but advised to return if he had to Increase his oxygen use or if he otherwise felt like he was worsening. Departure - Departure Disposition: 01 Home, Self Care Clinical Impression: Influenza A (H1N1), COPD exacerbation Condition: Good Instructions: COPD Dc, ED Flu, Medication: Tamiflu (Oseltamivir) Prescriptions: predniSONE [Deltasone] 10 mg PO [id number] #42 tab Oseltamivir Phosphate [Tamiflu] 75 mg PO BID 5 Days #9 cap Comments: You presented with cough and shortness of breath last for several days and was found to have influenza. This is also likely exacerbated your COPD. We gave you a breathing treatment and some steroids with improvement in your symptoms. Please continue your regular inhalers at home and I have given you a short course of steroids to help with the wheezing as well as a medication called Tamiflu which may reduce the severity of your flu symptoms. You are at higher risk for complications from the flu so if you feel you are getting worse or having increasing shortness of breath, return to the ER. Otherwise treatment is largely supportive including Tylenol as needed for discomfort, stay well- hydrated and get plenty of rest. Discharge Date/Time: 09/06/22 18:32
[2022-09-06] MEDS ORDERED: predniSONE 20 MG TABLET PO STA (17:35)
[2022-09-06] MEDS ORDERED: IPRATROPIUM/ALBUTEROL 3 ML NEB INH STA (17:35)
[2022-09-06] MEDS ORDERED: OSELTAMIVIR 75 MG CAPSULE PO STA (17:36)
[2022-09-06 18:12] VITALS: BP 160/80
== END 2022-09-06 18:32 | disposition home or self-care (01) ==
LOC: ED 15:27
DX: J10.1 Influenza due to other identified influenza virus with other respiratory manifestations (principal); J44.1 Chronic obstructive pulmonary disease with (acute) exacerbation; F17.200 Nicotine dependence, unspecified, uncomplicated; Z99.81 Dependence on supplemental oxygen; Z20.822 Contact with and (suspected) exposure to COVID-19
CPT/HCPCS: 71045; 87633; 94640; 94664; 99284; A9270; J7512

== ENCOUNTER 2023-01-18 19:47 | Emergency (ER) | payer MEDICARE, OTHER ==
--- NOTE | 2023-01-18 20:40 | ED Physician Documentation ---
PD HPI CHEST PAIN - Stated complaint Stated Complaint: RT RIB PX,SOA - Chief complaint Chief Complaint: Cardiac - History obtained from History obtained from: Patient - Additional information Additional information: HPI from patient. Patient c/o right posterolateral chest pain , exacerbated with palpation, deep inspiration, and movement. No ameliorating factors. The pain does not radiate. Onset five days ago , gradual and without inciting event. Denies injury. He notes increased dyspnea over his baseline (COPD, oxygen-dependent 2L/min O2 NC). Denies cough, denies leg swelling. Has not had similar symptoms in the past. Review of Systems Constitutional: denies: Fever, Chills, Sweats Cardiac: reports: Chest pain / pressure. denies: Palpitations, Pedal edema Respiratory: reports: Dyspnea. denies: Cough, Hemoptysis : denies: Dysuria, Frequency PD PAST MEDICAL HISTORY - Past Medical History Past Medical History: Yes Cardiovascular: Hypertension, High cholesterol, Other Respiratory: COPD, Emphysema, Shortness of breath Neuro: Other Endocrine/Autoimmune: None GI: None : Benign prostate hypertrophy, Retention, Indwelling catheter HEENT: Chronic vision loss Psych: Depression, Anxiety Musculoskeletal: Chronic back pain Derm: None - Past Surgical History Past Surgical History: Yes General: Colonoscopy, Other Ortho: Spine surgery - Present Medications Home Medications: Ambulatory Orders Medication Instructions Recorded Confirmed Albuterol Sulfate [Proair Hfa 2 puffs INH Q4H PRN 04/16/20 03/08/22 Inhaler] Tamsulosin HCl [Flomax] 0.8 mg PO QPM 04/16/20 03/08/22 Fluticasone/Salmeterol [Advair 1 each INH BID 09/27/21 03/08/22 500-50 Diskus] Oxybutynin [Ditropan] 5 mg PO BID #14 tablet 10/31/21 03/08/22 Tiotropium [place] [Spiriva] 1 puffs INH DAILY 03/08/22 03/08/22 Ipratropium/Albuterol [Duoneb] 3 ml INH Q6H PRN #100 ml 01/19/23 Nebulizer 1 each MC Q6HR PRN #1 ea 01/19/23 - Allergies Allergies/Adverse Reactions: Allergies Allergy/AdvReac Type Severity Reaction Status Date / Time hydrocodone Allergy Itching Verified 09/06/22 15:37 Penicillins Allergy Itching Verified 09/06/22 15:37 - Social History Does the pt smoke?: Yes Smoking Status: Current every day smoker Does the pt drink ETOH?: No Does the pt have substance abuse?: No - Immunizations Immunizations are current?: Yes - POLST Patient has POLST: No POLST Status: Full Code PD ED PE NORMAL - Vitals Vital signs reviewed: Yes - General General: Alert and oriented X 3, No acute distress, Well developed/nourished - Neck Neck: Supple, no meningeal sign - Cardiac Cardiac: RRR - Respiratory Respiratory: No respiratory distress - Extremities Extremities: No edema - Neuro Neuro: Alert and oriented X 3 PD ED PE EXPANDED - Respiratory Respiratory: Wheezing (end expiratory wheezing bilaterally but good air flow). No: Distress - Abdomen Abdomen: Tender to palpation (mild TTP RUQ without rebound or guarding) Results - Vitals Vitals: Oxygen O2 Source Nasal cannula - Labs Labs: Laboratory Tests 01/18/23 01/18/23 01/18/23 21:07 21:07 21:07 WBC 7.7 RBC 4.60 L Hgb 13.6 L Hct 42.4 MCV 92.2 MCH 29.6 MCHC 32.1 RDW 13.2 Plt Count 294 MPV 9.8 Neut # (Auto) 5.8 Lymph # (Auto) 0.9 L [place] # (Auto) 0.8 Eos # (Auto) 0.2 Baso # (Auto) 0.0 Absolute Nucleated RBC 0.00 Nucleated RBC % 0.0 Sodium 137 Potassium 4.0 Chloride 100 L Carbon Dioxide 31 Anion Gap 6.0 BUN 12 Creatinine 0.7 Estimated GFR (MDRD) 110 Glucose 93 Calcium 9.7 Total Bilirubin 0.3 AST 20 ALT 15 Alkaline Phosphatase 88 Troponin I High Sens 6.5 Total Protein 6.3 L Albumin 2.7 L Globulin 3.6 Albumin/Globulin Ratio 0.8 L Lipase 26 - Rads (name of study) RUQ US Relevant Findings:: Prelim report reviewed, See rad report CTA chest Relevant Findings:: Prelim report reviewed, See rad report PD Medical Decision Making - ED course Complexity details: reviewed results, re-evaluated patient, considered differential, d/w patient ED course: No concerning findings on CBC, ER abdominal panel, hs-cTn. RUQ US is unremarkable, with no evidence of dilatation of gallbladder nor ducts, and no evidence of gallstones/sludge. CTA chest with findings c/w severe COPD but no evidence of acute process/disease such as PE, pneumonia. He is given duoneb in ED and reports significant improvement in his dyspnea. He has albuterol MDI at home but this has been less effective over past few days and thus I e-prescribed him a nebulizer and duonebs. He is given IV toradol and reports good relief of his chest pain with this. On reevaluation, he is sleeping, easily awakes to voice, NAD. Results reviewed with patient, return precautions discussed. Cause of his symptoms are not apparent at this time. I advised him to follow up with his PMD, next available appointment, for reevaluation. Departure - Departure Disposition: Home, Self Care Clinical Impression: Chest pain Qualifiers: Chest pain type: unspecified Qualified Code(s): R07.9 - Chest pain, unspecified Condition: Good Instructions: ED Chest Pain Atypical Unkn Cause Prescriptions: Nebulizer 1 each MC Q6HR PRN #1 ea PRN Reason: Dyspnea Ipratropium/Albuterol [Duoneb] 3 ml INH Q6H PRN #100 ml PRN Reason: Dyspnea Comments: There were no concerning or diagnostic findings on tonight's tests. This includes blood test, ultrasound of your liver and gallbladder, and the CT scan of your chest. The cause of your symptoms is not apparent at this time. Contact your primary care provider's office in the morning to arrange for the next available appointment for reevaluation. Certainly, you can return to the emergency department at any time if symptoms recur/worsen, or if you develop new/concerning signs/symptoms such as fever, worsening pain, vomiting. Discharge Date/Time: 01/19/23 01:11
[2023-01-18 21:12] LABS: BASOPHILS % (AUTO) 0.3 %; EOSINOPHILS # (AUTO) 0.2 10^3/uL (0.0-0.7); EOSINOPHILS % (AUTO) 2.2 %; HCT - HEMATOCRIT 42.4 % (42.0-52.0); HGB - HEMOGLOBIN 13.6 g/dL (14.0-18.0); LYMPHOCYTES # (AUTO) 0.9 10^3/uL (1.5-3.5); LYMPHOCYTES % (AUTO) 11.8 %; MEAN CORPUSCULAR HEMOGLOBIN 29.6 pg (27.0-31.0); MEAN CORPUSCULAR HGB CONC 32.1 g/dL (32.0-36.0); MEAN CORPUSCULAR VOLUME 92.2 fL (80.0-94.0); MEAN PLATELET VOLUME 9.8 fL (7.4-11.4); MONOCYTES # (AUTO) 0.8 10^3/uL (0.0-1.0); MONOCYTES % (AUTO) 10.1 %; NEUTROPHILS # (AUTO) 5.8 10^3/uL (1.5-6.6); NEUTROPHILS % (AUTO) 75.2 %; PLT - PLATELET COUNT 294 10^3/uL (130-450); RED CELL DISTRIBUTION WIDTH 13.2 % (12.0-15.0); WHITE BLOOD COUNT 7.7 x10^3/uL (4.8-10.8)
[2023-01-18] MEDS ORDERED: IPRATROPIUM/ALBUTEROL 3 ML NEB INH STA (21:12)
[2023-01-18] MEDS ORDERED: KETOROLAC 15 MG/ML VIAL IVP STA (21:13)
--- OUTSIDE RECORDS SUMMARY | 2023-01-18 21:18 | EXTERNAL MEDICAL SUMMARY RPT | Continuity of Care Document ---
:1950 Author Organization [facility] Address [address] [place] [address] Phone Care Team Providers Name Role Phone Mirlande Logan Unavailable Unavailable Allergies No information. Encounters No information. Functional Status No information. Immunizations No information. Medications date description facility 2022-11-30 00:00 [facility] Problems No information. Procedures No information. Results/Labs test date author facility value unit interpret ation Result panel 1 (unknown) (no (unknown) (unknown) (no value) (units (unk nown) date) unknown) (unknown) (no (unknown) (unknown) 11/30/22 (units (unkno wn) date) unknown) (unknown) (no (unknown) (unknown) 11/30/22] (units (unkn own) date) unknown) (unknown) (no (unknown) (unknown) [id number] (units (unkno wn) date) unknown) (unknown) (no (unknown) (unknown) Accompanied by: (units (unknown) date) Self / Same As unknown) Patient (unknown) (no (unknown) (unknown) Age/Sex: 72 / M (units (unknown) date) Date of Service: unknown) (unknown) (no (unknown) (unknown) Allergies (units (unkn own) date) unknown) (unknown) (no (unknown) (unknown) [place] (units ( unknown) date) [id number] unknown) (unknown) (no (unknown) (unknown) Attending Dr: (units ( unknown) date) Andrea Kim unknown) D.OMarcelino (unknown) (no (unknown) (unknown) COPD (chronic (units ( unknown) date) obstructive unknown) pulmonary disease) (unknown) (no (unknown) (unknown) : 1950 (units (unknown) date) Acct:[id number] unknown) (unknown) (no (unknown) (unknown) Dept at (units (unkno wn) date) . unknown) (unknown) (no (unknown) (unknown) Difficulty (units (unk nown) date) Breathing unknown) (unknown) (no (unknown) (unknown) Diskus) 1 inh (units ( unknown) date) inhalation ONCE unknown) 08/10/22 [History Confirmed 11/30/22] (unknown) (no (unknown) (unknown) Documented By: (units (unknown) date) Andrea Kim unknown) D.O. 11/30/22 1320 (unknown) (no (unknown) (unknown) Draft (units (unkno wn) date) unknown) (unknown) (no (unknown) (unknown) H/O nasal (units (unkn own) date) polypectomy unknown) (unknown) (no (unknown) (unknown) H/O: vasectomy (units (unknown) date) unknown) (unknown) (no (unknown) (unknown) History of ankle (units (unknown) date) surgery unknown) (unknown) (no (unknown) (unknown) History of (units (unk nown) date) hernia surgery unknown) (unknown) (no (unknown) (unknown) History of (units (unk nown) date) lumbar surgery unknown) (unknown) (no (unknown) (unknown) ITCHING (units (unkno wn) date) unknown) (unknown) (no (unknown) (unknown) Intake Clinical (units (unknown) date) Staff unknown) (unknown) (no (unknown) (unknown) Intake performed (units (unknown) date) by: Adia Cruz unknown) (unknown) (no (unknown) (unknown) Intake (units (unkno wn) date) unknown) (unknown) (no (unknown) (unknown) Loc: PAIN (units (unkn own) date) unknown) (unknown) (no (unknown) (unknown) Lumbar foraminal (units (unknown) date) stenosis unknown) (unknown) (no (unknown) (unknown) 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 (unknown) (no (unknown) (unknown) Medical History (units (unknown) date) (Updated 08/10/22 unknown) @ 15:18 by Andrea Kim DO) (unknown) (no (unknown) (unknown) Medications (units (un known) date) unknown) (unknown) (no (unknown) (unknown) PFSH (units (unkno wn) date) unknown) (unknown) (no (unknown) (unknown) Pain Visit (units (unk nown) date) unknown) (unknown) (no (unknown) (unknown) Patient: (units (unkno wn) date) Justyn Valentin unknown) MR#: [id number] (unknown) (no (unknown) (unknown) Penicillins (units (un known) date) [PENICILLINS] unknown) Allergy (Severe, Unverified 11/30/22 13:20) (unknown) (no (unknown) (unknown) Reason For Visit (units (unknown) date) unknown) (unknown) (no (unknown) (unknown) S/P lumbar (units (unk nown) date) spinal fusion unknown) (unknown) (no (unknown) (unknown) Signed By: (units (unk nown) date) unknown) (unknown) (no (unknown) (unknown) Smoking Status: (units (unknown) date) Current every day unknown) smoker (unknown) (no (unknown) (unknown) Surgical History (units (unknown) date) (Updated 08/10/22 unknown) @ 15:17 by Andrea Kim DO) (unknown) (no (unknown) (unknown) TREMORS (units (unkno wn) date) unknown) (unknown) (no (unknown) (unknown) [facility] ([facility] ([facility]) [facility] unknown) (unknown) (no (unknown) (unknown) This note may (units ( unknown) date) have been all or unknown) partially generated using voice recognition (unknown) (no (unknown) (unknown) Tobacco + (units (unkn own) date) Substance Use unknown) (unknown) (no (unknown) (unknown) Tobacco Status (units (unknown) date) unknown) (unknown) (no (unknown) (unknown) Tobacco abuse (units ( unknown) date) unknown) (unknown) (no (unknown) (unknown) Visit Reasons: (units (unknown) date) FOLLOW UP LSPINE unknown) SERA, POST LUMBAR INJECTION (unknown) (no (unknown) (unknown) albuterol (units (unkn own) date) sulfate 90 unknown) mcg/actuation aerosol inhaler (ProAir HFA) 1 puff (unknown) (no (unknown) (unknown) bupropion [From (units (unknown) date) Wellbutrin SR] unknown) Allergy (Intermediate, Verified 11/30/22 13:20) (unknown) (no (unknown) (unknown) fluticasone 500 (units (unknown) date) mcg-salmeterol 50 unknown) mcg/dose blistr powdr for inhalation (Advair (unknown) (no (unknown) (unknown) have occurred. (units (unknown) date) If there are any unknown) questions, please contact the Medical Records (unknown) (no (unknown) (unknown) hydrocodone (units (un known) date) [HYDROCODONE] unknown) Allergy (Intermediate, Unverified 11/30/22 13:20) (unknown) (no (unknown) (unknown) inhalation ONCE (units (unknown) date) 08/10/22 [History unknown) Confirmed 11/30/22] (unknown) (no (unknown) (unknown) loratadine 10 mg (units (unknown) date) tablet 10 mg PO unknown) DAILY 08/10/22 [History Confirmed 11/30/22] (unknown) (no (unknown) (unknown) may occur. (units (unk nown) date) Occasional unknown) wrong-word or 'sound-alike' substitutions may have (unknown) (no (unknown) (unknown) occurred due to (units (unknown) date) the inherent unknown) limitations of voice recognition software. Please (unknown) (no (unknown) (unknown) read the note (units ( unknown) date) carefully and unknown) recognize, using context, where these substitutions (unknown) (no (unknown) (unknown) sildenafil 25 mg (units (unknown) date) tablet (Viagra) unknown) PO PRN PRN #0 tabs 05/04/16 [History Confirmed (unknown) (no (unknown) (unknown) software. (units (unkn own) date) Although every unknown) effort is made to edit content, tab cutting machine operator errors (unknown) (no (unknown) (unknown) tamsulosin 0.4 (units (unknown) date) mg capsule 0.4 mg unknown) PO BEDTIME 08/10/22 [History Confirmed (unknown) (no (unknown) (unknown) varenicline (units (un known) date) [From Chantix] unknown) Allergy (Severe, Verified 11/30/22 13:20) Result panel 2 (unknown) (no (unknown) (unknown) (no value) (units (unk nown) date) unknown) (unknown) (no (unknown) (unknown) 11/30/22 (units (unkno wn) date) unknown) (unknown) (no (unknown) (unknown) 11/30/22] (units (unkn own) date) unknown) (unknown) (no (unknown) (unknown) [id number] (units (unkno wn) date) unknown) (unknown) (no (unknown) (unknown) 13:29 (units (unkno wn) date) unknown) (unknown) (no (unknown) (unknown) Accompanied by: (units (unknown) date) Self / Same As unknown) Patient (unknown) (no (unknown) (unknown) Age/Sex: 72 / M (units (unknown) date) Date of Service: unknown) (unknown) (no (unknown) (unknown) Allergies (units (unkn own) date) unknown) (unknown) (no (unknown) (unknown) [place] (units ( unknown) date) [id number] unknown) (unknown) (no (unknown) (unknown) Attending Dr: (units ( unknown) date) Andrea Kim unknown) D.O. (unknown) (no (unknown) (unknown) COPD (chronic (units ( unknown) date) obstructive unknown) pulmonary disease) (unknown) (no (unknown) (unknown) : 1950 (units (unknown) date) Acct:[id number] unknown) (unknown) (no (unknown) (unknown) Dept at (units (unkno wn) date) . unknown) (unknown) (no (unknown) (unknown) Difficulty (units (unk nown) date) Breathing unknown) (unknown) (no (unknown) (unknown) Diskus) 1 inh (units ( unknown) date) inhalation ONCE unknown) 08/10/22 [History Confirmed 11/30/22] (unknown) (no (unknown) (unknown) Documented By: (units (unknown) date) Andrea Kim unknown) D.O. 11/30/22 1326 (unknown) (no (unknown) (unknown) Draft (units (unkno wn) date) unknown) (unknown) (no (unknown) (unknown) H/O nasal (units (unkn own) date) polypectomy unknown) (unknown) (no (unknown) (unknown) H/O: vasectomy (units (unknown) date) unknown) (unknown) (no (unknown) (unknown) HERE FOR LUMBAR (units (unknown) date) SPINE unknown) (unknown) (no (unknown) (unknown) History of ankle (units (unknown) date) surgery unknown) (unknown) (no (unknown) (unknown) History of (units (unk nown) date) hernia surgery unknown) (unknown) (no (unknown) (unknown) History of (units (unk nown) date) lumbar surgery unknown) (unknown) (no (unknown) (unknown) ITCHING (units (unkno wn) date) unknown) (unknown) (no (unknown) (unknown) Intake Clinical (units (unknown) date) Staff unknown) (unknown) (no (unknown) (unknown) Intake Note: (units (u nknown) date) unknown) (unknown) (no (unknown) (unknown) Intake performed (units (unknown) date) by: Adia Cruz unknown) (unknown) (no (unknown) (unknown) Intake (units (unkno wn) date) unknown) (unknown) (no (unknown) (unknown) Is patient in (units ( unknown) date) pain?: Yes (HERE unknown) FOR POST LUMBAR INJECTION) Pain scale (1-10): 5 (unknown) (no (unknown) (unknown) Loc: PAIN (units (unkn own) date) unknown) (unknown) (no (unknown) (unknown) Lumbar foraminal (units (unknown) date) stenosis unknown) (unknown) (no (unknown) (unknown) 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 (unknown) (no (unknown) (unknown) Medical History (units (unknown) date) (Updated 08/10/22 unknown) @ 15:18 by Andrea Kim DO) (unknown) (no (unknown) (unknown) Medications (units (un known) date) unknown) (unknown) (no (unknown) (unknown) Oxygen Delivery (units (unknown) date) Method room air unknown) (unknown) (no (unknown) (unknown) PFSH (units (unkno wn) date) unknown) (unknown) (no (unknown) (unknown) Pain Scale (units (unk nown) date) unknown) (unknown) (no (unknown) (unknown) Pain Visit (units (unk nown) date) unknown) (unknown) (no (unknown) (unknown) Patient: (units (unkno wn) date) Justyn Valentin E unknown) MR#: [id number] (unknown) (no (unknown) (unknown) Penicillins (units (un known) date) [PENICILLINS] unknown) Allergy (Severe, Unverified 11/30/22 13:20) (unknown) (no (unknown) (unknown) Pulse 88 (units (unkno wn) date) unknown) (unknown) (no (unknown) (unknown) Pulse Oximetry (units (unknown) date) (%) 98 unknown) (unknown) (no (unknown) (unknown) Pulse Source (units (u nknown) date) Monitor unknown) (unknown) (no (unknown) (unknown) Reason For Visit (units (unknown) date) unknown) (unknown) (no (unknown) (unknown) S/P lumbar (units (unk nown) date) spinal fusion unknown) (unknown) (no (unknown) (unknown) Signed By: (units (unk nown) date) unknown) (unknown) (no (unknown) (unknown) Smoking Status: (units (unknown) date) Current every day unknown) smoker (unknown) (no (unknown) (unknown) Surgical History (units (unknown) date) (Updated 08/10/22 unknown) @ 15:17 by Andrea Kim DO) (unknown) (no (unknown) (unknown) TREMORS (units (unkno wn) date) unknown) (unknown) (no (unknown) (unknown) Temp 98.4 F (units (un known) date) unknown) (unknown) (no (unknown) (unknown) Temp Source (units (un known) date) Temporal Artery unknown) Scan (unknown) (no (unknown) (unknown) [facility] ([facility] ([facility]) [facility] unknown) (unknown) (no (unknown) (unknown) This note may (units ( unknown) date) have been all or unknown) partially generated using voice recognition (unknown) (no (unknown) (unknown) Tobacco + (units (unkn own) date) Substance Use unknown) (unknown) (no (unknown) (unknown) Tobacco Status (units (unknown) date) unknown) (unknown) (no (unknown) (unknown) Tobacco abuse (units ( unknown) date) unknown) (unknown) (no (unknown) (unknown) Visit Reasons: (units (unknown) date) FOLLOW UP LSPINE unknown) SERA, POST LUMBAR INJECTION (unknown) (no (unknown) (unknown) Vitals (units (unkno wn) date) unknown) (unknown) (no (unknown) (unknown) albuterol (units (unkn own) date) sulfate 90 unknown) mcg/actuation aerosol inhaler (ProAir HFA) 1 puff (unknown) (no (unknown) (unknown) bupropion [From (units (unknown) date) Wellbutrin SR] unknown) Allergy (Intermediate, Verified 11/30/22 13:20) (unknown) (no (unknown) (unknown) fluticasone 500 (units (unknown) date) mcg-salmeterol 50 unknown) mcg/dose blistr powdr for inhalation (Advair (unknown) (no (unknown) (unknown) have occurred. (units (unknown) date) If there are any unknown) questions, please contact the Medical Records (unknown) (no (unknown) (unknown) hydrocodone (units (un known) date) [HYDROCODONE] unknown) Allergy (Intermediate, Unverified 11/30/22 13:20) (unknown) (no (unknown) (unknown) inhalation ONCE (units (unknown) date) 08/10/22 [History unknown) Confirmed 11/30/22] (unknown) (no (unknown) (unknown) loratadine 10 mg (units (unknown) date) tablet 10 mg PO unknown) DAILY 08/10/22 [History Confirmed 11/30/22] (unknown) (no (unknown) (unknown) may occur. (units (unk nown) date) Occasional unknown) wrong-word or 'sound-alike' substitutions may have (unknown) (no (unknown) (unknown) occurred due to (units (unknown) date) the inherent unknown) limitations of voice recognition software. Please (unknown) (no (unknown) (unknown) read the note (units ( unknown) date) carefully and unknown) recognize, using context, where these substitutions (unknown) (no (unknown) (unknown) sildenafil 25 mg (units (unknown) date) tablet (Viagra) unknown) PO PRN PRN #0 tabs 05/04/16 [History Confirmed (unknown) (no (unknown) (unknown) software. (units (unkn own) date) Although every unknown) effort is made to edit content, tab cutting machine operator errors (unknown) (no (unknown) (unknown) tamsulosin 0.4 (units (unknown) date) mg capsule 0.4 mg unknown) PO BEDTIME 08/10/22 [History Confirmed (unknown) (no (unknown) (unknown) varenicline (units (un known) date) [From Chantix] unknown) Allergy (Severe, Verified 11/30/22 13:20) Result panel 3 (unknown) (no (unknown) (unknown) (no value) (units (unk nown) date) unknown) (unknown) (no (unknown) (unknown) 11/30/22 (units (unkno wn) date) unknown) (unknown) (no (unknown) (unknown) 11/30/22] (units (unkn own) date) unknown) (unknown) (no (unknown) (unknown) [id number] (units (unkno wn) date) unknown) (unknown) (no (unknown) (unknown) 1. Remote (units (unkn own) date) decompressive unknown) laminectomy and fusion from L4 through S1. (unknown) (no (unknown) (unknown) 13:29 (units (unkno wn) date) unknown) (unknown) (no (unknown) (unknown) 2. At L5-S1, there (units (unknown) date) is moderate to unknown) severe right foraminal narrowing and severe (unknown) (no (unknown) (unknown) 3. Canal stenosis (units (unknown) date) is mild at L2-L3 and unknown) borderline at L3-L4. (unknown) (no (unknown) (unknown) ? (units (unkno wn) date) unknown) (unknown) (no (unknown) (unknown) Accompanied by: (units (unknown) date) Self / Same As unknown) Patient (unknown) (no (unknown) (unknown) Age/Sex: 72 / M (units (unknown) date) Date of Service: unknown) (unknown) (no (unknown) (unknown) All of his (units (unk nown) date) questions were unknown) answered to the best my ability is in agreement with (unknown) (no (unknown) (unknown) All other systems (units (unknown) date) reviewed and are unknown) negative except as noted in HPI. (unknown) (no (unknown) (unknown) Allergies (units (unkn own) date) unknown) (unknown) (no (unknown) (unknown) [place] [address] (unit s (unknown) date) unknown) (unknown) (no (unknown) (unknown) Assessment + Plan (units (unknown) date) unknown) (unknown) (no (unknown) (unknown) Attending Dr: (units ( unknown) date) Andrea Kim D.O. unknown) (unknown) (no (unknown) (unknown) Borderline canal (units (unknown) date) unknown) (unknown) (no (unknown) (unknown) COPD (chronic (units ( unknown) date) obstructive unknown) pulmonary disease) (unknown) (no (unknown) (unknown) Chief Complaint (units (unknown) date) unknown) (unknown) (no (unknown) (unknown) Chief Complaint: (units (unknown) date) Follow-up left L3-4 unknown) transforaminal SERA 08/16/2022 (unknown) (no (unknown) (unknown) : 1950 (units (unknown) date) Acct:[id number] unknown) (unknown) (no (unknown) (unknown) DTR's symmetric. (units (unknown) date) unknown) (unknown) (no (unknown) (unknown) Denies recent (units ( unknown) date) trauma, fever or unknown) weight loss of unknown origin, immunocompromise (unknown) (no (unknown) (unknown) Dept at (units (unkno wn) date) . unknown) (unknown) (no (unknown) (unknown) Details: (units (unkno wn) date) unknown) (unknown) (no (unknown) (unknown) Difficulty (units (unk nown) date) Breathing unknown) (unknown) (no (unknown) (unknown) Diskus) 1 inh (units ( unknown) date) inhalation ONCE unknown) 08/10/22 [History Confirmed 11/30/22] (unknown) (no (unknown) (unknown) Documented By: (units (unknown) date) Andrea Kim D.O. unknown) 11/30/22 1320 (unknown) (no (unknown) (unknown) Draft (units (unkno wn) date) unknown) (unknown) (no (unknown) (unknown) Endorses Tob abuse, (unit s (unknown) date) COPD, L4 through S1 unknown) instrumented fusion Dr. Roman (unknown) (no (unknown) (unknown) Exam Narrative (units (unknown) date) unknown) (unknown) (no (unknown) (unknown) Exam Narrative: (units (unknown) date) unknown) (unknown) (no (unknown) (unknown) Exam (units (unkno wn) date) unknown) (unknown) (no (unknown) (unknown) Gait: Full (units (unk nown) date) weightbearing. No unknown) assistive device. Stooped Gait Posture due to (unknown) (no (unknown) (unknown) Justyn presents (units (unknown) date) today for further unknown) evaluation treatment status post left L3-4 (unknown) (no (unknown) (unknown) Jeff his (units ( unknown) date) Alondra and I unknown) discussed at length his underlying pathology we (unknown) (no (unknown) (unknown) General: The (units (u nknown) date) patient is in no unknown) obvious distress. Normal affect. Fully (unknown) (no (unknown) (unknown) H/O nasal (units (unkn own) date) polypectomy unknown) (unknown) (no (unknown) (unknown) H/O: vasectomy (units (unknown) date) unknown) (unknown) (no (unknown) (unknown) HERE FOR LUMBAR (units (unknown) date) SPINE unknown) (unknown) (no (unknown) (unknown) HPI (units (unkno wn) date) unknown) (unknown) (no (unknown) (unknown) He reports (units (unk nown) date) otherwise feeling unknown) well maintain the Covid19 social restrictions (unknown) (no (unknown) (unknown) His hip examination (unit s (unknown) date) on today's exam as unknown) well as radiographically does appear to (unknown) (no (unknown) (unknown) History of ankle (units (unknown) date) surgery unknown) (unknown) (no (unknown) (unknown) History of hernia (units (unknown) date) surgery unknown) (unknown) (no (unknown) (unknown) History of lumbar (units (unknown) date) surgery unknown) (unknown) (no (unknown) (unknown) IMPRESSION: (units (un known) date) unknown) (unknown) (no (unknown) (unknown) ITCHING (units (unkno wn) date) unknown) (unknown) (no (unknown) (unknown) Intake Clinical (units (unknown) date) Staff unknown) (unknown) (no (unknown) (unknown) Intake Note: (units (u nknown) date) unknown) (unknown) (no (unknown) (unknown) Intake performed (units (unknown) date) by: Adia Cruz unknown) (unknown) (no (unknown) (unknown) Intake (units (unkno wn) date) unknown) (unknown) (no (unknown) (unknown) Is patient in (units ( unknown) date) pain?: Yes (HERE FOR unknown) POST LUMBAR INJECTION) Pain scale (1-10): 5 (unknown) (no (unknown) (unknown) L1-L2: Severe disc (units (unknown) date) height loss. Disc unknown) bulge. No significant canal stenosis. Mild (unknown) (no (unknown) (unknown) L2-L3: Disc bulge. (units (unknown) date) Facet hypertrophy. unknown) Mild canal stenosis. Mild right foraminal (unknown) (no (unknown) (unknown) L3-L4: Moderately (units (unknown) date) severe disc height unknown) loss. Retrolisthesis of L3 on L4. (unknown) (no (unknown) (unknown) L4-L5: Fused. No (units (unknown) date) canal stenosis. Mild unknown) left foraminal stenosis. (unknown) (no (unknown) (unknown) L5-S1: Fused. (units (u nknown) date) Anterolisthesis of unknown) L5 on S1. No canal stenosis. Moderate to severe (unknown) (no (unknown) (unknown) Left Lower (units (unk nown) date) Extremity: No edema, unknown) joint effusion or atrophy. 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 (unknown) (no (unknown) (unknown) Medical History (units (unknown) date) (Reviewed 11/30/22 @ unknown) 13:52 by Andrea Kim DO) (unknown) (no (unknown) (unknown) Medications (units (un known) date) unknown) (unknown) (no (unknown) (unknown) Neuro: System (units ( unknown) date) reviewed and no unknown) additional complaints, except as documented. (unknown) (no (unknown) (unknown) Neurologic: (units (un known) date) Sensation is grossly unknown) intact to light touch throughout the upper and (unknown) (no (unknown) (unknown) Objective Data (units (unknown) date) unknown) (unknown) (no (unknown) (unknown) Objective Data: (units (unknown) date) unknown) (unknown) (no (unknown) (unknown) Oxygen Delivery (units (unknown) date) Method room air unknown) (unknown) (no (unknown) (unknown) PFSH (units (unkno wn) date) unknown) (unknown) (no (unknown) (unknown) Pain Scale (units (unk nown) date) unknown) (unknown) (no (unknown) (unknown) Pain Visit (units (unk nown) date) unknown) (unknown) (no (unknown) (unknown) Patient: (units (unkno wn) date) Justyn Valentin MR#: unknown) M00 (unknown) (no (unknown) (unknown) Penicillins (units (un known) date) [PENICILLINS] unknown) Allergy (Severe, Unverified 11/30/22 13:20) (unknown) (no (unknown) (unknown) Plan (units (unkno wn) date) unknown) (unknown) (no (unknown) (unknown) Pulse 88 (units (unkno wn) date) unknown) (unknown) (no (unknown) (unknown) Pulse Oximetry (%) (units (unknown) date) 98 unknown) (unknown) (no (unknown) (unknown) Pulse Source (units (u nknown) date) Monitor unknown) (unknown) (no (unknown) (unknown) ROS Narrative (units ( unknown) date) unknown) (unknown) (no (unknown) (unknown) ROS Narrative: (units (unknown) date) unknown) (unknown) (no (unknown) (unknown) ROS (units (unkno wn) date) unknown) (unknown) (no (unknown) (unknown) Reason For Visit (units (unknown) date) unknown) (unknown) (no (unknown) (unknown) Reports otherwise (units (unknown) date) no new traumas or unknown) illnesses. He continues to be the primary (unknown) (no (unknown) (unknown) Right Lower (units (un known) date) Extremity: No edema, unknown) effusion or atrophy. tenderness over the (unknown) (no (unknown) (unknown) Right Upper (units (un known) date) Extremity: Right unknown) upper extremity exam shows grossly normal (unknown) (no (unknown) (unknown) S/P lumbar spinal (units (unknown) date) fusion unknown) (unknown) (no (unknown) (unknown) Signed By: (units (unk nown) date) unknown) (unknown) (no (unknown) (unknown) Skin: No (units (unkno wn) date) significant skin unknown) lesions are noted. (unknown) (no (unknown) (unknown) Smoking Status: (units (unknown) date) Current every day unknown) smoker (unknown) (no (unknown) (unknown) Spine: Cervical (units (unknown) date) spine ROM unknown) functional. Lumbar spine ROM was reduced in all (unknown) (no (unknown) (unknown) Subsequently will (units (unknown) date) proceed with a left unknown) L3-4 transforaminal SERA at SERA to (unknown) (no (unknown) (unknown) Surgical History (units (unknown) date) (Reviewed 11/30/22 @ unknown) 13:52 by Andrea Kim DO) (unknown) (no (unknown) (unknown) TREMORS (units (unkno wn) date) unknown) (unknown) (no (unknown) (unknown) Temp 98.4 F (units (un known) date) unknown) (unknown) (no (unknown) (unknown) Temp Source (units (un known) date) Temporal Artery Scan unknown) (unknown) (no (unknown) (unknown) [facility] (unit s (unknown) date) Management unknown) (unknown) (no (unknown) (unknown) This note may have (units (unknown) date) been all or unknown) partially generated using voice recognition (unknown) (no (unknown) (unknown) Tobacco + Substance (unit s (unknown) date) Use unknown) (unknown) (no (unknown) (unknown) Tobacco Status (units (unknown) date) unknown) (unknown) (no (unknown) (unknown) Tobacco abuse (units ( unknown) date) unknown) (unknown) (no (unknown) (unknown) Visit Reasons: (units (unknown) date) FOLLOW UP LSPINE unknown) SERA, POST LUMBAR INJECTION (unknown) (no (unknown) (unknown) Vitals (units (unkno wn) date) unknown) (unknown) (no (unknown) (unknown) [facility] and had (units (unknown) date) difficulty with unknown) axial low back pain with some radiation to the (unknown) (no (unknown) (unknown) We discussed the (units (unknown) date) above-stated unknown) procedure at length and subsequently elected to (unknown) (no (unknown) (unknown) above-stated plan. (units (unknown) date) unknown) (unknown) (no (unknown) (unknown) above-stated (units (u nknown) date) procedure at length unknown) and verbal consent was obtained today, As oral (unknown) (no (unknown) (unknown) albuterol sulfate (units (unknown) date) 90 mcg/actuation unknown) aerosol inhaler (ProAir HFA) 1 puff (unknown) (no (unknown) (unknown) alignment, range of (unit s (unknown) date) motion, strength and unknown) stability with no swelling, atrophy or (unknown) (no (unknown) (unknown) axial LBP (units (unkn own) date) unknown) (unknown) (no (unknown) (unknown) be within normal (units (unknown) date) limits but does have unknown) significant central foraminal stenosis at (unknown) (no (unknown) (unknown) bilateral hips. He (units (unknown) date) is as previously unknown) noted diffuse from L4 through S1 performed (unknown) (no (unknown) (unknown) bilateral (units (unkn own) date) unknown) (unknown) (no (unknown) (unknown) bupropion [From (units (unknown) date) Wellbutrin SR] unknown) Allergy (Intermediate, Verified 11/30/22 13:20) (unknown) (no (unknown) (unknown) by Dr. Abel rankin (units (unknown) date) believe in 2014. He unknown) is also currently engaged in formal (unknown) (no (unknown) (unknown) caregiver to assist (unit s (unknown) date) his Alondra unknown) (unknown) (no (unknown) (unknown) centrally and (units ( unknown) date) foraminally at L3-4 unknown) above his previous instrumented fusion at L4 (unknown) (no (unknown) (unknown) complete written (units (unknown) date) consent on the day unknown) of the procedure. (unknown) (no (unknown) (unknown) consent, we did (units (unknown) date) review the risks of unknown) the above stated procedure including not (unknown) (no (unknown) (unknown) developed new (units ( unknown) date) symptoms involving unknown) the left lateral hip greater than the right. (unknown) (no (unknown) (unknown) discussed his (units ( unknown) date) multilevel spinal unknown) stenosis both foraminally at L5-S1 as well as (unknown) (no (unknown) (unknown) effusion. (units (unkn own) date) unknown) (unknown) (no (unknown) (unknown) features. He (units (u nknown) date) reports he was doing unknown) quite well to late September when he was in (unknown) (no (unknown) (unknown) fluticasone 500 (units (unknown) date) mcg-salmeterol 50 unknown) mcg/dose blistr powdr for inhalation (Advair (unknown) (no (unknown) (unknown) foraminal L5 (units (u nknown) date) unknown) (unknown) (no (unknown) (unknown) foraminal narrowing (unit s (unknown) date) with bilateral unknown) foraminal L5 nerve root impingement. (unknown) (no (unknown) (unknown) foraminal stenosis. (unit s (unknown) date) unknown) (unknown) (no (unknown) (unknown) greater (units (unkno wn) date) trochanteric region unknown) (unknown) (no (unknown) (unknown) greater (units (unkno wn) date) trochanteric region. unknown) (unknown) (no (unknown) (unknown) have occurred. 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 We did unknown) discuss the use of medications as well but as (unknown) (no (unknown) (unknown) increased tenderness (unit s (unknown) date) with axial loading unknown) and extension based maneuvers tenderness (unknown) (no (unknown) (unknown) inhalation ONCE (units (unknown) date) 08/10/22 [History unknown) Confirmed 11/30/22] (unknown) (no (unknown) (unknown) intravenous drug (units (unknown) date) use, sustained unknown) glucocorticoid use, osteoporosis, or a focal (unknown) (no (unknown) (unknown) late he has not (units (unknown) date) found any prominent unknown) relief from the physical therapy. (unknown) (no (unknown) (unknown) left (units (unkno wn) date) unknown) (unknown) (no (unknown) (unknown) limited to (units (unk nown) date) bleeding, infection, unknown) allergic reaction, nerve injury, stroke, (unknown) (no (unknown) (unknown) loratadine 10 mg (units (unknown) date) tablet 10 mg PO unknown) DAILY 08/10/22 [History Confirmed 11/30/22] (unknown) (no (unknown) (unknown) lower extremities. (units (unknown) date) motor 5/5 all LE unknown) muscle groups. Coordination appears normal. (unknown) (no (unknown) (unknown) may occur. (units (unk nown) date) Occasional unknown) wrong-word or 'sound-alike' substitutions may have (unknown) (no (unknown) (unknown) multiple CVAs (units ( unknown) date) leading her to be unknown) essentially disabled under his care. (unknown) (no (unknown) (unknown) nerve root (units (unk nown) date) impingement. unknown) (unknown) (no (unknown) (unknown) neurological (units (u nknown) date) deficit with unknown) progressive or disabling symptoms. (unknown) (no (unknown) (unknown) obtained today (units ( unknown) date) without guarantees unknown) or assurances of complete relief applied. Will (unknown) (no (unknown) (unknown) occurred due to the (unit s (unknown) date) inherent limitations unknown) of voice recognition software. Please (unknown) (no (unknown) (unknown) or (units (unkno wn) date) immunosuppressive unknown) therapy, previous or current cancer diagnosis, history of (unknown) (no (unknown) (unknown) oriented. (units (unkn own) date) unknown) (unknown) (no (unknown) (unknown) paralysis and (unit s (unknown) date) and the patient unknown) elected to proceed. Informed consent was (unknown) (no (unknown) (unknown) physical therapy at (unit s (unknown) date) [facility] physical unknown) therapy in [place]. He reports as of (unknown) (no (unknown) (unknown) planes. On (units (unk nown) date) palpation, there is unknown) tenderness over the spinous processes. With (unknown) (no (unknown) (unknown) procedure itself (units (unknown) date) does for prime unknown) relief from his left lower extremity radicular (unknown) (no (unknown) (unknown) proceed with a left (unit s (unknown) date) L3-4 transforaminal unknown) SERA to significant offset his symptoms (unknown) (no (unknown) (unknown) provocative (units (unk nown) date) maneuvers including unknown) sacra shear test as well as pelvic obliquity are (unknown) (no (unknown) (unknown) range of motion, (units (unknown) date) strength and unknown) stability with no swelling, atrophy or effusion. (unknown) (no (unknown) (unknown) read the note (units ( unknown) date) carefully and unknown) recognize, using context, where these substitutions (unknown) (no (unknown) (unknown) right foraminal (units (unknown) date) narrowing and severe unknown) left foraminal narrowing with bilateral (unknown) (no (unknown) (unknown) significant offset (units (unknown) date) his symptoms in a unknown) nonsurgical fashion. We did review the (unknown) (no (unknown) (unknown) sildenafil 25 mg (units (unknown) date) tablet (Viagra) PO unknown) PRN PRN #0 tabs 05/04/16 [History Confirmed (unknown) (no (unknown) (unknown) software. Although (units (unknown) date) every effort is made unknown) to edit content, tab cutting machine operator errors (unknown) (no (unknown) (unknown) stenosis. (units (unkn own) date) [id number] unknown) bilateral foraminal narrowing. (unknown) (no (unknown) (unknown) stenosis. (units (unkn own) date) unknown) (unknown) (no (unknown) (unknown) tamsulosin 0.4 mg (units (unknown) date) capsule 0.4 mg PO unknown) BEDTIME 08/10/22 [History Confirmed (unknown) (no (unknown) (unknown) the L3-4 level (units (unknown) date) likely leading to unknown) his current symptomatology. (unknown) (no (unknown) (unknown) through S1. He has (units (unknown) date) is at undergone unknown) instrumented fusion performed by Dr. Roman (unknown) (no (unknown) (unknown) to palpation on (units (unknown) date) paraspinals.straight unknown) leg raising negative bilaterally. Sacral (unknown) (no (unknown) (unknown) transforaminal ESRA (units (unknown) date) performed unknown) 08/16/2020. He reports no difficulty with the (unknown) (no (unknown) (unknown) varenicline [From (units (unknown) date) Chantix] Allergy unknown) (Severe, Verified 11/30/22 13:20) (unknown) (no (unknown) (unknown) we believe in 2014 (units (unknown) date) of L4 through S1. He unknown) without new traumas or illnesses (unknown) (no (unknown) (unknown) within normal (units ( unknown) date) limits. unknown) (unknown) (no (unknown) (unknown) without cough fever (unit s (unknown) date) fatigue at this unknown) time. Result panel 4 (unknown) (no (unknown) (unknown) (no value) (units (unk nown) date) unknown) (unknown) (no (unknown) (unknown) (1) S/P lumbar (units (unknown) date) spinal fusion: unknown) (unknown) (no (unknown) (unknown) (2) COPD (chronic (units (unknown) date) obstructive unknown) pulmonary disease): (unknown) (no (unknown) (unknown) (3) Tobacco abuse: (units (unknown) date) unknown) (unknown) (no (unknown) (unknown) (4) Lumbar stenosis (unit s (unknown) date) with neurogenic unknown) claudication: (unknown) (no (unknown) (unknown) (5) Lumbar (units (unk nown) date) foraminal stenosis: unknown) (unknown) (no (unknown) (unknown) 11/30/22 (units (unkno wn) date) unknown) (unknown) (no (unknown) (unknown) [id number] (units (unkno wn) date) unknown) (unknown) (no (unknown) (unknown) 1. Remote (units (unkn own) date) decompressive unknown) laminectomy and fusion from L4 through S1. (unknown) (no (unknown) (unknown) 08/10/22] (units (unkn own) date) unknown) (unknown) (no (unknown) (unknown) 13:29 (units (unkno wn) date) unknown) (unknown) (no (unknown) (unknown) 2. At L5-S1, there (units (unknown) date) is moderate to unknown) severe right foraminal narrowing and severe (unknown) (no (unknown) (unknown) 3. Canal stenosis (units (unknown) date) is mild at L2-L3 and unknown) borderline at L3-L4. (unknown) (no (unknown) (unknown) ? (units (unkno wn) date) unknown) (unknown) (no (unknown) (unknown) Accompanied by: (units (unknown) date) Self / Same As unknown) Patient (unknown) (no (unknown) (unknown) Age/Sex: 72 / M (units (unknown) date) Date of Service: unknown) (unknown) (no (unknown) (unknown) All of his (units (unk nown) date) questions were unknown) answered to the best my ability is in agreement with (unknown) (no (unknown) (unknown) All other systems (units (unknown) date) reviewed and are unknown) negative except as noted in HPI. (unknown) (no (unknown) (unknown) Allergies (units (unkn own) date) unknown) (unknown) (no (unknown) (unknown) [place] [address] (unit s (unknown) date) unknown) (unknown) (no (unknown) (unknown) Assessment + Plan (units (unknown) date) unknown) (unknown) (no (unknown) (unknown) Attending Dr: (units ( unknown) date) Andrea Kim D.O. 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 (units (unknown) date) unknown) (unknown) (no (unknown) (unknown) Denies recent (units ( unknown) date) trauma, fever or unknown) weight loss of unknown origin, immunocompromise (unknown) (no (unknown) (unknown) Dept at (units (unkno wn) date) . unknown) (unknown) (no (unknown) (unknown) Details: (units (unkno wn) date) unknown) (unknown) (no (unknown) (unknown) Difficulty (units (unk nown) date) Breathing unknown) (unknown) (no (unknown) (unknown) Diskus) 1 inh (units ( unknown) date) inhalation ONCE unknown) 08/10/22 [History Confirmed 08/10/22] (unknown) (no (unknown) (unknown) Documented By: (units (unknown) date) Andrea Kim D.O. unknown) 11/30/22 1320 (unknown) (no (unknown) (unknown) Draft (units (unkno wn) date) unknown) (unknown) (no (unknown) (unknown) Endorses Tob abuse, (unit s (unknown) date) COPD, L4 through S1 unknown) instrumented fusion Dr. Roman (unknown) (no (unknown) (unknown) Exam Narrative (units (unknown) date) unknown) (unknown) (no (unknown) (unknown) Exam Narrative: (units (unknown) date) unknown) (unknown) (no (unknown) (unknown) Exam (units (unkno wn) date) unknown) (unknown) (no (unknown) (unknown) Gait: Full (units (unk nown) date) weightbearing. No unknown) assistive device. Stooped Gait Posture due to (unknown) (no (unknown) (unknown) Justyn presents (units (unknown) date) today for further unknown) evaluation treatment status post left L3-4 (unknown) (no (unknown) (unknown) Jeff his (units ( unknown) date) Alondra and I unknown) discussed at length his underlying pathology we (unknown) (no (unknown) (unknown) General: The (units (u nknown) date) patient is in no unknown) obvious distress. Normal affect. Fully (unknown) (no (unknown) (unknown) H/O nasal (units (unkn own) date) polypectomy unknown) (unknown) (no (unknown) (unknown) H/O: vasectomy (units (unknown) date) unknown) (unknown) (no (unknown) (unknown) HERE FOR LUMBAR (units (unknown) date) SPINE unknown) (unknown) (no (unknown) (unknown) HPI (units (unkno wn) date) unknown) (unknown) (no (unknown) (unknown) He reports (units (unk nown) date) otherwise feeling unknown) well maintain the Covid19 social restrictions (unknown) (no (unknown) (unknown) His hip examination (unit s (unknown) date) on today's exam as unknown) well as radiographically does appear to (unknown) (no (unknown) (unknown) History of ankle (units (unknown) date) surgery unknown) (unknown) (no (unknown) (unknown) History of hernia (units (unknown) date) surgery unknown) (unknown) (no (unknown) (unknown) History of lumbar (units (unknown) date) surgery unknown) (unknown) (no (unknown) (unknown) IMPRESSION: (units (un known) date) unknown) (unknown) (no (unknown) (unknown) ITCHING (units (unkno wn) date) unknown) (unknown) (no (unknown) (unknown) Intake Clinical (units (unknown) date) Staff unknown) (unknown) (no (unknown) (unknown) Intake Note: (units (u nknown) date) unknown) (unknown) (no (unknown) (unknown) Intake performed (units (unknown) date) by: Adia Cruz unknown) (unknown) (no (unknown) (unknown) Intake (units (unkno wn) date) unknown) (unknown) (no (unknown) (unknown) Is patient in (units ( unknown) date) pain?: Yes (HERE FOR unknown) POST LUMBAR INJECTION) Pain scale (1-10): 5 (unknown) (no (unknown) (unknown) J43.9 - Emphysema, (units (unknown) date) unspecified unknown) (unknown) (no (unknown) (unknown) L1-L2: Severe disc (units (unknown) date) height loss. Disc unknown) bulge. No significant canal stenosis. Mild (unknown) (no (unknown) (unknown) L2-L3: Disc bulge. (units (unknown) date) Facet hypertrophy. unknown) Mild canal stenosis. Mild right foraminal (unknown) (no (unknown) (unknown) L3-L4: Moderately (units (unknown) date) severe disc height unknown) loss. Retrolisthesis of L3 on L4. (unknown) (no (unknown) (unknown) L4-L5: Fused. No (units (unknown) date) canal stenosis. Mild unknown) left foraminal stenosis. (unknown) (no (unknown) (unknown) L5-S1: Fused. (units (u nknown) date) Anterolisthesis of unknown) L5 on S1. No canal stenosis. Moderate to severe (unknown) (no (unknown) (unknown) Left Lower (units (unk nown) date) Extremity: No edema, unknown) joint effusion or atrophy. 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 (unknown) (no (unknown) (unknown) Medical History (units (unknown) date) (Reviewed 11/30/22 @ unknown) 13:52 by Andrea Kim DO) (unknown) (no (unknown) (unknown) Medications (units (un known) date) unknown) (unknown) (no (unknown) (unknown) Neuro: System (units ( unknown) date) reviewed and no unknown) additional complaints, except as documented. (unknown) (no (unknown) (unknown) Neurologic: (units (un known) date) Sensation is grossly unknown) intact to light touch throughout the upper and (unknown) (no (unknown) (unknown) Objective Data (units (unknown) date) unknown) (unknown) (no (unknown) (unknown) Objective Data: (units (unknown) date) unknown) (unknown) (no (unknown) (unknown) Oxygen Delivery (units (unknown) date) Method room air unknown) (unknown) (no (unknown) (unknown) PFSH (units (unkno wn) date) unknown) (unknown) (no (unknown) (unknown) Pain Scale (units (unk nown) date) unknown) (unknown) (no (unknown) (unknown) Pain Visit (units (unk nown) date) unknown) (unknown) (no (unknown) (unknown) Patient: (units (unkno wn) date) Justyn Valentin MR#: unknown) M00 (unknown) (no (unknown) (unknown) Penicillins (units (un known) date) [PENICILLINS] unknown) Allergy (Severe, Unverified 11/30/22 13:20) (unknown) (no (unknown) (unknown) Plan (units (unkno wn) date) unknown) (unknown) (no (unknown) (unknown) Pulse 88 (units (unkno wn) date) unknown) (unknown) (no (unknown) (unknown) Pulse Oximetry (%) (units (unknown) date) 98 unknown) (unknown) (no (unknown) (unknown) Pulse Source (units (u nknown) date) Monitor unknown) (unknown) (no (unknown) (unknown) Qualifiers: (units (un known) date) unknown) (unknown) (no (unknown) (unknown) ROS Narrative (units ( unknown) date) unknown) (unknown) (no (unknown) (unknown) ROS Narrative: (units (unknown) date) unknown) (unknown) (no (unknown) (unknown) ROS (units (unkno wn) date) unknown) (unknown) (no (unknown) (unknown) Reason For Visit (units (unknown) date) unknown) (unknown) (no (unknown) (unknown) Reports otherwise (units (unknown) date) no new traumas or unknown) illnesses. He continues to be the primary (unknown) (no (unknown) (unknown) Right Lower (units (un known) date) Extremity: No edema, unknown) effusion or atrophy. tenderness over the (unknown) (no (unknown) (unknown) Right Upper (units (un known) date) Extremity: Right unknown) upper extremity exam shows grossly normal (unknown) (no (unknown) (unknown) S/P lumbar spinal (units (unknown) date) fusion unknown) (unknown) (no (unknown) (unknown) Signed By: (units (unk nown) date) unknown) (unknown) (no (unknown) (unknown) Skin: No (units (unkno wn) date) significant skin unknown) lesions are noted. (unknown) (no (unknown) (unknown) Smoking Status: (units (unknown) date) Current every day unknown) smoker (unknown) (no (unknown) (unknown) Spine: Cervical (units (unknown) date) spine ROM unknown) functional. Lumbar spine ROM was reduced in all (unknown) (no (unknown) (unknown) Status: Acute (units ( unknown) date) unknown) (unknown) (no (unknown) (unknown) Subsequently will (units (unknown) date) proceed with a left unknown) L3-4 transforaminal SERA at SERA to (unknown) (no (unknown) (unknown) Surgical History (units (unknown) date) (Reviewed 11/30/22 @ unknown) 13:52 by Andrea Kim DO) (unknown) (no (unknown) (unknown) TREMORS (units (unkno wn) date) unknown) (unknown) (no (unknown) (unknown) Temp 98.4 F (units (un known) date) unknown) (unknown) (no (unknown) (unknown) Temp Source (units (un known) date) Temporal Artery Scan unknown) (unknown) (no (unknown) (unknown) [facility] (unit s (unknown) date) Management unknown) (unknown) (no (unknown) (unknown) This note may have (units (unknown) date) been all or unknown) partially generated using voice recognition (unknown) (no (unknown) (unknown) Tobacco + Substance (unit s (unknown) date) Use unknown) (unknown) (no (unknown) (unknown) Tobacco Status (units (unknown) date) unknown) (unknown) (no (unknown) (unknown) Tobacco abuse (units ( unknown) date) unknown) (unknown) (no (unknown) (unknown) Visit Reasons: (units (unknown) date) FOLLOW UP LSPINE unknown) SERA, POST LUMBAR INJECTION (unknown) (no (unknown) (unknown) Vitals (units (unkno wn) date) unknown) (unknown) (no (unknown) (unknown) [facility] and had (units (unknown) date) difficulty with unknown) axial low back pain with some radiation to the (unknown) (no (unknown) (unknown) We discussed the (units (unknown) date) above-stated unknown) procedure at length and subsequently elected to (unknown) (no (unknown) (unknown) above-stated plan. (units (unknown) date) unknown) (unknown) (no (unknown) (unknown) above-stated (units (u nknown) date) procedure at length unknown) and verbal consent was obtained today, As oral (unknown) (no (unknown) (unknown) albuterol sulfate (units (unknown) date) 90 mcg/actuation unknown) aerosol inhaler (ProAir HFA) 1 puff (unknown) (no (unknown) (unknown) alignment, range of (unit s (unknown) date) motion, strength and unknown) stability with no swelling, atrophy or (unknown) (no (unknown) (unknown) axial LBP (units (unkn own) date) unknown) (unknown) (no (unknown) (unknown) be within normal (units (unknown) date) limits but does have unknown) significant central foraminal stenosis at (unknown) (no (unknown) (unknown) bilateral hips. He (units (unknown) date) is as previously unknown) noted diffuse from L4 through S1 performed (unknown) (no (unknown) (unknown) bilateral (units (unkn own) date) unknown) (unknown) (no (unknown) (unknown) bupropion [From (units (unknown) date) Wellbutrin SR] unknown) Allergy (Intermediate, Verified 11/30/22 13:20) (unknown) (no (unknown) (unknown) by Dr. Abel rankin (units (unknown) date) believe in 2015. He unknown) is also currently engaged in formal (unknown) (no (unknown) (unknown) caregiver to assist (unit s (unknown) date) his Alondra unknown) (unknown) (no (unknown) (unknown) centrally and (units ( unknown) date) foraminally at L3-4 unknown) above his previous instrumented fusion at L4 (unknown) (no (unknown) (unknown) complete written (units (unknown) date) consent on the day unknown) of the procedure. (unknown) (no (unknown) (unknown) consent, we did (units (unknown) date) review the risks of unknown) the above stated procedure including not (unknown) (no (unknown) (unknown) developed new (units ( unknown) date) symptoms involving unknown) the left lateral hip greater than the right. (unknown) (no (unknown) (unknown) discussed his (units ( unknown) date) multilevel spinal unknown) stenosis both foraminally at L5-S1 as well as (unknown) (no (unknown) (unknown) effusion. (units (unkn own) date) unknown) (unknown) (no (unknown) (unknown) features. He (units (u nknown) date) reports he was doing unknown) quite well to late September when he was in (unknown) (no (unknown) (unknown) fluticasone 500 (units (unknown) date) mcg-salmeterol 50 unknown) mcg/dose blistr powdr for inhalation (Advair (unknown) (no (unknown) (unknown) foraminal L5 (units (u nknown) date) unknown) (unknown) (no (unknown) (unknown) foraminal narrowing (unit s (unknown) date) with bilateral unknown) foraminal L5 nerve root impingement. (unknown) (no (unknown) (unknown) foraminal stenosis. (unit s (unknown) date) unknown) (unknown) (no (unknown) (unknown) greater (units (unkno wn) date) trochanteric region unknown) (unknown) (no (unknown) (unknown) greater (units (unkno wn) date) trochanteric region. unknown) (unknown) (no (unknown) (unknown) have occurred. 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 We did unknown) discuss the use of medications as well but as (unknown) (no (unknown) (unknown) increased tenderness (unit s (unknown) date) with axial loading unknown) and extension based maneuvers tenderness (unknown) (no (unknown) (unknown) inhalation ONCE (units (unknown) date) 08/10/22 [History unknown) Confirmed 08/10/22] (unknown) (no (unknown) (unknown) intravenous drug (units (unknown) date) use, sustained unknown) glucocorticoid use, osteoporosis, or a focal (unknown) (no (unknown) (unknown) late he has not (units (unknown) date) found any prominent unknown) relief from the physical therapy. (unknown) (no (unknown) (unknown) left (units (unkno wn) date) unknown) (unknown) (no (unknown) (unknown) limited to (units (unk nown) date) bleeding, infection, unknown) allergic reaction, nerve injury, stroke, (unknown) (no (unknown) (unknown) loratadine 10 mg (units (unknown) date) tablet 10 mg PO unknown) DAILY 08/10/22 [History Confirmed 08/10/22] (unknown) (no (unknown) (unknown) lower extremities. (units (unknown) date) motor 5/5 all LE unknown) muscle groups. Coordination appears normal. (unknown) (no (unknown) (unknown) may occur. (units (unk nown) date) Occasional unknown) wrong-word or 'sound-alike' substitutions may have (unknown) (no (unknown) (unknown) multiple CVAs (units ( unknown) date) leading her to be unknown) essentially disabled under his care. (unknown) (no (unknown) (unknown) nerve root (units (unk nown) date) impingement. unknown) (unknown) (no (unknown) (unknown) neurological (units (u nknown) date) deficit with unknown) progressive or disabling symptoms. (unknown) (no (unknown) (unknown) obtained today (units ( unknown) date) without guarantees unknown) or assurances of complete relief applied. Will (unknown) (no (unknown) (unknown) occurred due to the (unit s (unknown) date) inherent limitations unknown) of voice recognition software. Please (unknown) (no (unknown) (unknown) or (units (unkno wn) date) immunosuppressive unknown) therapy, previous or current cancer diagnosis, history of (unknown) (no (unknown) (unknown) oriented. (units (unkn own) date) unknown) (unknown) (no (unknown) (unknown) paralysis and (unit s (unknown) date) and the patient unknown) elected to proceed. Informed consent was (unknown) (no (unknown) (unknown) physical therapy at (unit s (unknown) date) [facility] physical unknown) therapy in [place]. He reports as of (unknown) (no (unknown) (unknown) planes. On (units (unk nown) date) palpation, there is unknown) tenderness over the spinous processes. With (unknown) (no (unknown) (unknown) procedure itself (units (unknown) date) does for prime unknown) relief from his left lower extremity radicular (unknown) (no (unknown) (unknown) proceed with a left (unit s (unknown) date) L3-4 transforaminal unknown) SERA to significant offset his symptoms (unknown) (no (unknown) (unknown) provocative (units (unk nown) date) maneuvers including unknown) sacra shear test as well as pelvic obliquity are (unknown) (no (unknown) (unknown) range of motion, (units (unknown) date) strength and unknown) stability with no swelling, atrophy or effusion. (unknown) (no (unknown) (unknown) read the note (units ( unknown) date) carefully and unknown) recognize, using context, where these substitutions (unknown) (no (unknown) (unknown) right foraminal (units (unknown) date) narrowing and severe unknown) left foraminal narrowing with bilateral (unknown) (no (unknown) (unknown) significant offset (units (unknown) date) his symptoms in a unknown) nonsurgical fashion. We did review the (unknown) (no (unknown) (unknown) sildenafil 25 mg (units (unknown) date) tablet (Viagra) PO unknown) PRN PRN #0 tabs 05/04/16 [History Confirmed (unknown) (no (unknown) (unknown) software. Although (units (unknown) date) every effort is made unknown) to edit content, tab cutting machine operator errors (unknown) (no (unknown) (unknown) stenosis. (units (unkn own) date) Gaox-ti-sxolvspf unknown) bilateral foraminal narrowing. (unknown) (no (unknown) (unknown) stenosis. (units (unkn own) date) unknown) (unknown) (no (unknown) (unknown) tamsulosin 0.4 mg (units (unknown) date) capsule 0.4 mg PO unknown) BEDTIME 08/10/22 [History Confirmed (unknown) (no (unknown) (unknown) the L3-4 level (units (unknown) date) likely leading to unknown) his current symptomatology. (unknown) (no (unknown) (unknown) through S1. He has (units (unknown) date) is at undergone unknown) instrumented fusion performed by Dr. Roman (unknown) (no (unknown) (unknown) to palpation on (units (unknown) date) paraspinals.straight unknown) leg raising negative bilaterally. Sacral (unknown) (no (unknown) (unknown) transforaminal SERA (units (unknown) date) performed unknown) 08/16/2020. He reports no difficulty with the (unknown) (no (unknown) (unknown) varenicline [From (units (unknown) date) Chantix] Allergy unknown) (Severe, Verified 11/30/22 13:20) (unknown) (no (unknown) (unknown) we believe in 2014 (units (unknown) date) of L4 through S1. He unknown) without new traumas or illnesses (unknown) (no (unknown) (unknown) within normal (units ( unknown) date) limits. unknown) (unknown) (no (unknown) (unknown) without cough fever (unit s (unknown) date) fatigue at this unknown) time. Result panel 5 (unknown) (no (unknown) (unknown) (no value) (units (unk nown) date) unknown) (unknown) (no (unknown) (unknown) (1) S/P lumbar (units (unknown) date) spinal fusion: unknown) (unknown) (no (unknown) (unknown) (2) COPD (chronic (units (unknown) date) obstructive unknown) pulmonary disease): (unknown) (no (unknown) (unknown) (3) Tobacco abuse: (units (unknown) date) unknown) (unknown) (no (unknown) (unknown) (4) Lumbar stenosis (unit s (unknown) date) with neurogenic unknown) claudication: (unknown) (no (unknown) (unknown) (5) Lumbar (units (unk nown) date) foraminal stenosis: unknown) (unknown) (no (unknown) (unknown) 11/30/22 1401 (units ( unknown) date) unknown) (unknown) (no (unknown) (unknown) 11/30/22 (units (unkno wn) date) unknown) (unknown) (no (unknown) (unknown) [id number] (units (unkno wn) date) unknown) (unknown) (no (unknown) (unknown) 1. Remote (units (unkn own) date) decompressive unknown) laminectomy and fusion from L4 through S1. (unknown) (no (unknown) (unknown) 08/10/22] (units (unkn own) date) unknown) (unknown) (no (unknown) (unknown) 13:29 (units (unkno wn) date) unknown) (unknown) (no (unknown) (unknown) 2. At L5-S1, there (units (unknown) date) is moderate to unknown) severe right foraminal narrowing and severe (unknown) (no (unknown) (unknown) 200 mg capsules (units (unknown) date) p.o. q.day to offset unknown) the remaining symptoms. Should his (unknown) (no (unknown) (unknown) 3. Canal stenosis (units (unknown) date) is mild at L2-L3 and unknown) borderline at L3-L4. (unknown) (no (unknown) (unknown) Accompanied by: (units (unknown) date) Self / Same As unknown) Patient (unknown) (no (unknown) (unknown) Age/Sex: 72 / M (units (unknown) date) Date of Service: unknown) (unknown) (no (unknown) (unknown) All of his (units (unk nown) date) questions were unknown) answered to the best my ability is in agreement with (unknown) (no (unknown) (unknown) All other systems (units (unknown) date) reviewed and are unknown) negative except as noted in HPI. (unknown) (no (unknown) (unknown) Allergies (units (unkn own) date) unknown) (unknown) (no (unknown) (unknown) [place] [id number] (unit s (unknown) date) unknown) (unknown) (no (unknown) (unknown) Assessment + Plan (units (unknown) date) unknown) (unknown) (no (unknown) (unknown) Attending Dr: (units ( unknown) date) Andrea Kim D.O. 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 (units (unknown) date) unknown) (unknown) (no (unknown) (unknown) Denies recent (units ( unknown) date) trauma, fever or unknown) weight loss of unknown origin, immunocompromise (unknown) (no (unknown) (unknown) Dept at (units (unkno wn) date) . unknown) (unknown) (no (unknown) (unknown) Details: (units (unkno wn) date) unknown) (unknown) (no (unknown) (unknown) Difficulty (units (unk nown) date) Breathing unknown) (unknown) (no (unknown) (unknown) Diskus) 1 inh (units ( unknown) date) inhalation ONCE unknown) 08/10/22 [History Confirmed 08/10/22] (unknown) (no (unknown) (unknown) Documented By: (units (unknown) date) Andrea Kim D.O. unknown) 11/30/22 1320 (unknown) (no (unknown) (unknown) Endorses Tob abuse, (unit s (unknown) date) COPD, L4 through S1 unknown) instrumented fusion Dr. Roman (unknown) (no (unknown) (unknown) Exam Narrative (units (unknown) date) unknown) (unknown) (no (unknown) (unknown) Exam Narrative: (units (unknown) date) unknown) (unknown) (no (unknown) (unknown) Exam (units (unkno wn) date) unknown) (unknown) (no (unknown) (unknown) Gait: Full (units (unk nown) date) weightbearing. No unknown) assistive device. Stooped Gait Posture due to (unknown) (no (unknown) (unknown) Justyn presents (units (unknown) date) today for further unknown) evaluation treatment status post left L3-4 (unknown) (no (unknown) (unknown) Jeff his (units ( unknown) date) Alondra and I unknown) discussed at length his underlying pathology we (unknown) (no (unknown) (unknown) General: The (units (u nknown) date) patient is in no unknown) obvious distress. Normal affect. Fully (unknown) (no (unknown) (unknown) H/O nasal (units (unkn own) date) polypectomy unknown) (unknown) (no (unknown) (unknown) H/O: vasectomy (units (unknown) date) unknown) (unknown) (no (unknown) (unknown) HERE FOR LUMBAR (units (unknown) date) SPINE unknown) (unknown) (no (unknown) (unknown) HPI (units (unkno wn) date) unknown) (unknown) (no (unknown) (unknown) He had prominent (units (unknown) date) relief until the end unknown) of September when he was shopping at [employer] (unknown) (no (unknown) (unknown) He reports (units (unk nown) date) otherwise feeling unknown) well maintain the Covid19 social restrictions (unknown) (no (unknown) (unknown) His hip examination (unit s (unknown) date) on today's exam as unknown) well as radiographically does appear to (unknown) (no (unknown) (unknown) History of ankle (units (unknown) date) surgery unknown) (unknown) (no (unknown) (unknown) History of hernia (units (unknown) date) surgery unknown) (unknown) (no (unknown) (unknown) History of lumbar (units (unknown) date) surgery unknown) (unknown) (no (unknown) (unknown) IMPRESSION: (units (un known) date) unknown) (unknown) (no (unknown) (unknown) ITCHING (units (unkno wn) date) unknown) (unknown) (no (unknown) (unknown) Intake Clinical (units (unknown) date) Staff unknown) (unknown) (no (unknown) (unknown) Intake Note: (units (u nknown) date) unknown) (unknown) (no (unknown) (unknown) Intake performed (units (unknown) date) by: Adia Cruz unknown) (unknown) (no (unknown) (unknown) Intake (units (unkno wn) date) unknown) (unknown) (no (unknown) (unknown) Is patient in (units ( unknown) date) pain?: Yes (HERE FOR unknown) POST LUMBAR INJECTION) Pain scale (1-10): 5 (unknown) (no (unknown) (unknown) J43.9 - Emphysema, (units (unknown) date) unspecified unknown) (unknown) (no (unknown) (unknown) L1-L2: Severe disc (units (unknown) date) height loss. Disc unknown) bulge. No significant canal stenosis. Mild (unknown) (no (unknown) (unknown) L2-L3: Disc bulge. (units (unknown) date) Facet hypertrophy. unknown) Mild canal stenosis. Mild right foraminal (unknown) (no (unknown) (unknown) L3-L4: Moderately (units (unknown) date) severe disc height unknown) loss. Retrolisthesis of L3 on L4. (unknown) (no (unknown) (unknown) L4-L5: Fused. No (units (unknown) date) canal stenosis. Mild unknown) left foraminal stenosis. (unknown) (no (unknown) (unknown) L5-S1: Fused. (units (u nknown) date) Anterolisthesis of unknown) L5 on S1. No canal stenosis. Moderate to severe (unknown) (no (unknown) (unknown) Left Lower (units (unk nown) date) Extremity: No edema, unknown) joint effusion or atrophy. 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 (unknown) (no (unknown) (unknown) [place]. He does have (units (unknown) date) evidence of a unknown) retrolisthesis at the L3-4 level with (unknown) (no (unknown) (unknown) Medical History (units (unknown) date) (Reviewed 11/30/22 @ unknown) 13:52 by Andrea Kim DO) (unknown) (no (unknown) (unknown) Medications (units (un known) date) unknown) (unknown) (no (unknown) (unknown) Medications: (units (u nknown) date) unknown) (unknown) (no (unknown) (unknown) Neuro: System (units ( unknown) date) reviewed and no unknown) additional complaints, except as documented. (unknown) (no (unknown) (unknown) Neurologic: (units (un known) date) Sensation is grossly unknown) intact to light touch throughout the upper and (unknown) (no (unknown) (unknown) New (units (unkno wn) date) unknown) (unknown) (no (unknown) (unknown) Objective Data (units (unknown) date) unknown) (unknown) (no (unknown) (unknown) Objective Data: (units (unknown) date) unknown) (unknown) (no (unknown) (unknown) Oxygen Delivery (units (unknown) date) Method room air unknown) (unknown) (no (unknown) (unknown) PFSH (units (unkno wn) date) unknown) (unknown) (no (unknown) (unknown) Pain Scale (units (unk nown) date) unknown) (unknown) (no (unknown) (unknown) Pain Visit (units (unk nown) date) unknown) (unknown) (no (unknown) (unknown) Patient: (units (unkno wn) date) Justyn Valentin MR#: unknown) M00 (unknown) (no (unknown) (unknown) Penicillins (units (un known) date) [PENICILLINS] unknown) Allergy (Severe, Unverified 11/30/22 13:20) (unknown) (no (unknown) (unknown) Plan (units (unkno wn) date) unknown) (unknown) (no (unknown) (unknown) Pulse 88 (units (unkno wn) date) unknown) (unknown) (no (unknown) (unknown) Pulse Oximetry (%) (units (unknown) date) 98 unknown) (unknown) (no (unknown) (unknown) Pulse Source (units (u nknown) date) Monitor unknown) (unknown) (no (unknown) (unknown) Qualifiers: (units (un known) date) unknown) (unknown) (no (unknown) (unknown) ROS Narrative (units ( unknown) date) unknown) (unknown) (no (unknown) (unknown) ROS Narrative: (units (unknown) date) unknown) (unknown) (no (unknown) (unknown) ROS (units (unkno wn) date) unknown) (unknown) (no (unknown) (unknown) Reason For Visit (units (unknown) date) unknown) (unknown) (no (unknown) (unknown) Reports otherwise (units (unknown) date) no new traumas or unknown) illnesses. He continues to be the primary (unknown) (no (unknown) (unknown) Right Lower (units (un known) date) Extremity: No edema, unknown) effusion or atrophy. tenderness over the (unknown) (no (unknown) (unknown) Right Upper (units (un known) date) Extremity: Right unknown) upper extremity exam shows grossly normal (unknown) (no (unknown) (unknown) S/P lumbar spinal (units (unknown) date) fusion unknown) (unknown) (no (unknown) (unknown) Signed By: (units (unk nown) date) <Electronically unknown) signed by Andrea Kim D.O.> (unknown) (no (unknown) (unknown) Signed (units (unkno wn) date) unknown) (unknown) (no (unknown) (unknown) Skin: No (units (unkno wn) date) significant skin unknown) lesions are noted. (unknown) (no (unknown) (unknown) Smoking Status: (units (unknown) date) Current every day unknown) smoker (unknown) (no (unknown) (unknown) Spine: Cervical (units (unknown) date) spine ROM unknown) functional. Lumbar spine ROM was reduced in all (unknown) (no (unknown) (unknown) Status: Acute (units ( unknown) date) unknown) (unknown) (no (unknown) (unknown) Surgical History (units (unknown) date) (Reviewed 11/30/22 @ unknown) 13:52 by Andrea Kim DO) (unknown) (no (unknown) (unknown) TREMORS (units (unkno wn) date) unknown) (unknown) (no (unknown) (unknown) Temp 98.4 F (units (un known) date) unknown) (unknown) (no (unknown) (unknown) Temp Source (units (un known) date) Temporal Artery Scan unknown) (unknown) (no (unknown) (unknown) [facility] (unit s (unknown) date) Management unknown) (unknown) (no (unknown) (unknown) This note may have (units (unknown) date) been all or unknown) partially generated using voice recognition (unknown) (no (unknown) (unknown) Tobacco + Substance (unit s (unknown) date) Use unknown) (unknown) (no (unknown) (unknown) Tobacco Status (units (unknown) date) unknown) (unknown) (no (unknown) (unknown) Tobacco abuse (units ( unknown) date) unknown) (unknown) (no (unknown) (unknown) Visit Reasons: (units (unknown) date) FOLLOW UP LSPINE unknown) SERA, POST LUMBAR INJECTION (unknown) (no (unknown) (unknown) Vitals (units (unkno wn) date) unknown) (unknown) (no (unknown) (unknown) [employer] and had (units (unknown) date) difficulty with unknown) axial low back pain with some radiation to the (unknown) (no (unknown) (unknown) We discussed his (units (unknown) date) remaining axial low unknown) back pain as he has as release tyler of the (unknown) (no (unknown) (unknown) above-stated plan. (units (unknown) date) unknown) (unknown) (no (unknown) (unknown) albuterol sulfate (units (unknown) date) 90 mcg/actuation unknown) aerosol inhaler (ProAir HFA) 1 puff (unknown) (no (unknown) (unknown) alignment, range of (unit s (unknown) date) motion, strength and unknown) stability with no swelling, atrophy or (unknown) (no (unknown) (unknown) associated (units (unk nown) date) foraminal stenosis unknown) central stenosis and facet arthropathy. (unknown) (no (unknown) (unknown) axial LBP (units (unkn own) date) unknown) (unknown) (no (unknown) (unknown) ay occur. (units (unkn own) date) Occasional unknown) wrong-word or 'sound-alike' substitutions may have (unknown) (no (unknown) (unknown) be within normal (units (unknown) date) limits but does have unknown) significant central foraminal stenosis at (unknown) (no (unknown) (unknown) bilateral hips. He (units (unknown) date) is as previously unknown) noted diffuse from L4 through S1 performed (unknown) (no (unknown) (unknown) bilateral (units (unkn own) date) unknown) (unknown) (no (unknown) (unknown) bupropion [From (units (unknown) date) Wellbutrin SR] unknown) Allergy (Intermediate, Verified 11/30/22 13:20) (unknown) (no (unknown) (unknown) by Dr. Abel rankin (units (unknown) date) believe in 2015. He unknown) is also currently engaged in formal (unknown) (no (unknown) (unknown) caregiver to assist (unit s (unknown) date) his Alondra unknown) (unknown) (no (unknown) (unknown) celecoxib (units (unkn own) date) (Celebrex) 200 mg PO unknown) DAILY 30 caps 2RF (unknown) (no (unknown) (unknown) celecoxib 200 mg (units (unknown) date) capsule (Celebrex) unknown) 200 mg PO DAILY #30 caps 11/30/22 [Rx (unknown) (no (unknown) (unknown) centrally and (units ( unknown) date) foraminally at L3-4 unknown) above his previous instrumented fusion at L4 (unknown) (no (unknown) (unknown) current formal (units (unknown) date) physical therapy at unknown) [facility] in [place] (unknown) (no (unknown) (unknown) developed new (units ( unknown) date) symptoms involving unknown) the left lateral hip greater than the right. (unknown) (no (unknown) (unknown) discussed his (units ( unknown) date) multilevel spinal unknown) stenosis both foraminally at L5-S1 as well as (unknown) (no (unknown) (unknown) effusion. (units (unkn own) date) unknown) (unknown) (no (unknown) (unknown) facet joint (units (un known) date) injections at the unknown) L3-4 level. Will follow up in approximately 3 (unknown) (no (unknown) (unknown) features. He (units (u nknown) date) reports he was doing unknown) quite well to late September when he was in (unknown) (no (unknown) (unknown) fluticasone 500 (units (unknown) date) mcg-salmeterol 50 unknown) mcg/dose blistr powdr for inhalation (Advair (unknown) (no (unknown) (unknown) foraminal L5 (units (u nknown) date) unknown) (unknown) (no (unknown) (unknown) foraminal narrowing (unit s (unknown) date) with bilateral unknown) foraminal L5 nerve root impingement. (unknown) (no (unknown) (unknown) foraminal stenosis. (unit s (unknown) date) unknown) (unknown) (no (unknown) (unknown) greater (units (unkno wn) date) trochanteric region unknown) (unknown) (no (unknown) (unknown) greater (units (unkno wn) date) trochanteric region. unknown) (unknown) (no (unknown) (unknown) have occurred. If (units (unknown) date) there are any unknown) questions, please contact the Medical Records (unknown) (no (unknown) (unknown) hydrocodone (units (un known) date) [HYDROCODONE] unknown) Allergy (Intermediate, Unverified 11/30/22 13:20) (unknown) (no (unknown) (unknown) increased tenderness (unit s (unknown) date) with axial loading unknown) and extension based maneuvers tenderness (unknown) (no (unknown) (unknown) inhalation ONCE (units (unknown) date) 08/10/22 [History unknown) Confirmed 08/10/22] (unknown) (no (unknown) (unknown) intravenous drug (units (unknown) date) use, sustained unknown) glucocorticoid use, osteoporosis, or a focal (unknown) (no (unknown) (unknown) late he has not (units (unknown) date) found any prominent unknown) relief from the physical therapy. (unknown) (no (unknown) (unknown) left lower (units (unk nown) date) extremity symptoms. unknown) We did discuss and begin a trial with Celebrex (unknown) (no (unknown) (unknown) left (units (unkno wn) date) unknown) (unknown) (no (unknown) (unknown) loratadine 10 mg (units (unknown) date) tablet 10 mg PO unknown) DAILY 08/10/22 [History Confirmed 08/10/22] (unknown) (no (unknown) (unknown) lower extremities. (units (unknown) date) motor 5/5 all LE unknown) muscle groups. Coordination appears normal. (unknown) (no (unknown) (unknown) months in order to (units (unknown) date) monitor his unknown) progression. Otherwise he will continue with his (unknown) (no (unknown) (unknown) nerve root (units (unk nown) date) impingement. unknown) (unknown) (no (unknown) (unknown) neurological (units (u nknown) date) deficit with unknown) progressive or disabling symptoms. (unknown) (no (unknown) (unknown) occurred due to the (unit s (unknown) date) inherent limitations unknown) of voice recognition software. Please (unknown) (no (unknown) (unknown) or (units (unkno wn) date) immunosuppressive unknown) therapy, previous or current cancer diagnosis, history of (unknown) (no (unknown) (unknown) oriented. (units (unkn own) date) unknown) (unknown) (no (unknown) (unknown) physical therapy at (unit s (unknown) date) [facility] physical unknown) therapy in [place]. He reports as of (unknown) (no (unknown) (unknown) planes. On (units (unk nown) date) palpation, there is unknown) tenderness over the spinous processes. With (unknown) (no (unknown) (unknown) positive response (units (unknown) date) with her left L3-4 unknown) transforaminal SERA performed 08/16/2022. (unknown) (no (unknown) (unknown) procedure itself (units (unknown) date) does for prime unknown) relief from his left lower extremity radicular (unknown) (no (unknown) (unknown) provocative (units (unk nown) date) maneuvers including unknown) sacra shear test as well as pelvic obliquity are (unknown) (no (unknown) (unknown) range of motion, (units (unknown) date) strength and unknown) stability with no swelling, atrophy or effusion. (unknown) (no (unknown) (unknown) read the note (units ( unknown) date) carefully and unknown) recognize, using context, where these substitutions (unknown) (no (unknown) (unknown) right foraminal (units (unknown) date) narrowing and severe unknown) left foraminal narrowing with bilateral (unknown) (no (unknown) (unknown) sildenafil 25 mg (units (unknown) date) tablet (Viagra) PO unknown) PRN PRN #0 tabs 05/04/16 [History Confirmed (unknown) (no (unknown) (unknown) software. Although (units (unknown) date) every effort is made unknown) to edit content, tab cutting machine operator errors m (unknown) (no (unknown) (unknown) stenosis. (units (unkn own) date) Buls-bp-mlurpbqy unknown) bilateral foraminal narrowing. (unknown) (no (unknown) (unknown) stenosis. (units (unkn own) date) unknown) (unknown) (no (unknown) (unknown) symptoms continue (units (unknown) date) to be problematic we unknown) may consider an L3-4 translaminar SERA or (unknown) (no (unknown) (unknown) tamsulosin 0.4 mg (units (unknown) date) capsule 0.4 mg PO unknown) BEDTIME 08/10/22 [History Confirmed (unknown) (no (unknown) (unknown) the L3-4 level (units (unknown) date) likely leading to unknown) his current symptomatology. We discussed his (unknown) (no (unknown) (unknown) through S1. He has (units (unknown) date) is at undergone unknown) instrumented fusion performed by Dr. Roman (unknown) (no (unknown) (unknown) to palpation on (units (unknown) date) paraspinals.straight unknown) leg raising negative bilaterally. Sacral (unknown) (no (unknown) (unknown) transforaminal SERA (units (unknown) date) performed unknown) 08/16/2020. He reports no difficulty with the (unknown) (no (unknown) (unknown) varenicline [From (units (unknown) date) Chantix] Allergy unknown) (Severe, Verified 11/30/22 13:20) (unknown) (no (unknown) (unknown) we believe in 2014 (units (unknown) date) of L4 through S1. He unknown) without new traumas or illnesses (unknown) (no (unknown) (unknown) within normal (units ( unknown) date) limits. unknown) (unknown) (no (unknown) (unknown) without cough fever (unit s (unknown) date) fatigue at this unknown) time. Social History date description facility 2022-11-30 00:00 Smokes tobacco daily ([facility] Vital Signs date measurement value units 2022-11-30 00:00 heart_rate 88 /min 2022-11-30 00:00 o2_saturation 98 % 2022-11-30 00:00 temperature_metric 36.89 C 2022-11-30 00:00 temperature_standard 98.4 F
[2023-01-18] MEDS ORDERED: iohexoL-300 100 ML VIAL ONE (21:21)
[2023-01-18 21:28] LABS: ALBUMIN 2.7 g/dL (3.2-5.5); ALBUMIN/GLOBULIN RATIO 0.8 (1.0-2.2); BILIRUBIN,TOTAL 0.3 mg/dL (0.2-1.0); CALCIUM 9.7 mg/dL (8.5-10.3); CREATININE 0.7 mg/dL (0.6-1.2); TOTAL PROTEIN 6.3 g/dL (6.7-8.2)
--- NOTE | 2023-01-18 22:40 | Ultrasound Report ---
PROCEDURE: Abdomen Limited INDICATIONS: RUQ pain/tenderness TECHNIQUE: Real-time focused scanning was performed of the abdomen, with image documentation. COMPARISONS: CT abdomen pelvis 09/11/2021.. FINDINGS: Liver: Liver is normal in size and homogeneous in echotexture. Gallbladder: Gallbladder is nondistended. No stones or sludge. No gallbladder wall thickening. No per icholecystic fluid. Negative sonographic Ruiz sign. Biliary ducts: Intrahepatic bile ducts are non-dilated. Extrahepatic bile duct caliber measures 3 m m. Normal is 6-7 mm or less in diameter, or 10 mm or less post-cholecystectomy. Pancreas: Visualized portions of the pancreas are sonographically normal. Right kidney: Normal in size and echotexture. Right kidney measures 10.9 cm long. No hydronephrosis or nephrolithiasis. No solid masses. No complex renal cystic lesions which require follow-up. IMPRESSION: No acute cholecystitis. No gallstones. Reviewed by: Bebo Back MD on 01/18/2023 10:39 PM PDT Approved by: Bebo Back MD on 01/18/2023 10:39 PM PDT Station ID: [id number]
[2023-01-18] MEDS ORDERED: iohexoL-300 100 ML VIAL IVP ONE (23:17)
--- NOTE | 2023-01-18 23:39 | CT Report ---
PROCEDURE: ANGIO CHEST W/WO INDICATIONS: right chest pain, pleuritic CONTRAST: Omni 300 80ml TECHNIQUE: After the administration of intravenous contrast, 2 mm axial images were acquired from the pulmonary apices to the posterior costophrenic angles during the arterial phase. In addition, 1 mm lung kernel and 5 mm soft tissue kernel reconstructions were performed. 3-dimensional coronal oblique maximum int ensity projection (MIP) reformats, 8 mm axial MIP, and 5 mm coronal and sagittal MPR reformats were t hen performed through the thorax. For radiation dose reduction, the following was used: automated exp osure control, adjustment of mA and/or kV according to patient size. COMPARISON: CXR 09/06/2022. FINDINGS: Image quality: Excellent. Large vessels: No filling defect within the opacified pulmonary arteries. Left pulmonary artery is pa tulous. No evidence of acute aortic syndrome. Ascending aorta measures 3.4 cm. Lungs and pleura: No pleural effusions. No pneumothorax. No suspicious pulmonary nodules which requi re follow up. Severe emphysematous change. Secretions in the trachea. Mediastinum: Heart size is normal. No pericardial effusions. No mediastinal adenopathy by size criter ia. Chest wall and lower neck: Thyroid is unremarkable. No axillary or supraclavicular adenopathy by size . Bones: No aggressive osseous abnormality. Upper Abdomen: Unremarkable. IMPRESSION: 1. No pulmonary embolism. 2. No acute airspace opacity. Secretions in the trachea. 3. Severe emphysematous change. Reviewed by: Bebo Back MD on 01/18/2023 11:51 PM PDT Approved by: Bebo Back MD on 01/18/2023 11:51 PM PDT Station ID: [id number]
[2023-01-19 00:44] VITALS: BP 160/86
== END 2023-01-19 01:11 | disposition home or self-care (01) ==
LOC: ED 19:47
DX: R07.9 Chest pain, unspecified (principal); J43.9 Emphysema, unspecified; I10 Essential (primary) hypertension; E78.00 Pure hypercholesterolemia, unspecified; F17.200 Nicotine dependence, unspecified, uncomplicated; Z99.81 Dependence on supplemental oxygen; Z79.51 Long term (current) use of inhaled steroids
CPT/HCPCS: 36415; 71275; 76705; 80053; 83690; 84484; 85025; 94640; 99284; Q9967

== ENCOUNTER 2023-01-22 15:19 | Emergency (ER) | payer MEDICARE, OTHER ==
[2023-01-22] MEDS ORDERED: IPRATROPIUM/ALBUTEROL 3 ML NEB INH STA (15:40)
[2023-01-22] MEDS ORDERED: DEXAMETHASONE 10 MG/ML VIAL IV STA (15:40)
--- OUTSIDE RECORDS SUMMARY | 2023-01-22 15:48 | EXTERNAL MEDICAL SUMMARY RPT | Continuity of Care Document ---
:1950 Author Organization [facility] Address [address] [place] [address] Phone Care Team Providers Name Role Phone Mirlande Logan Unavailable Unavailable Allergies No information. Encounters No information. Functional Status No information. Immunizations No information. Medications date description facility 2022-11-30 00:00 [facility] Problems No information. Procedures No information. Results/Labs test date author facility value unit interpret ation Result panel 1 (unknown) (no (unknown) (unknown) (no value) (units (unk nown) date) unknown) (unknown) (no (unknown) (unknown) 11/30/22 (units (unkno wn) date) unknown) (unknown) (no (unknown) (unknown) 11/30/22] (units (unkn own) date) unknown) (unknown) (no (unknown) (unknown) [id number] (units (unkno wn) date) unknown) (unknown) (no (unknown) (unknown) Accompanied by: (units (unknown) date) Self / Same As unknown) Patient (unknown) (no (unknown) (unknown) Age/Sex: 72 / M (units (unknown) date) Date of Service: unknown) (unknown) (no (unknown) (unknown) Allergies (units (unkn own) date) unknown) (unknown) (no (unknown) (unknown) [facility] (units ( unknown) date) [id number] unknown) (unknown) (no (unknown) (unknown) Attending Dr: (units ( unknown) date) Andrea Kim unknown) D.OMarcelino (unknown) (no (unknown) (unknown) COPD (chronic (units ( unknown) date) obstructive unknown) pulmonary disease) (unknown) (no (unknown) (unknown) : 1950 (units (unknown) date) Acct:[id number] unknown) (unknown) (no (unknown) (unknown) Dept at [...] unknown) effort is made to edit content, cdl truck driver errors (unknown) (no (unknown) (unknown) tamsulosin 0.4 [...] own) date) unknown) (unknown) (no (unknown) (unknown) [id number] (units (unkno wn) date) unknown) (unknown) (no [...] (unknown) [facility] (units ( unknown) date) [id number] unknown) (unknown) (no (unknown) (unknown) Attending Dr: (units ( unknown) date) Andrea Kim unknown) D.O. (unknown) (no (unknown) (unknown) COPD (chronic (units ( unknown) date) obstructive unknown) pulmonary disease) (unknown) (no (unknown) (unknown) : 1950 (units (unknown) date) Acct:[id number] unknown) (unknown) (no (unknown) (unknown) Dept at (units (unkno wn) date) . unknown) (unknown) (no (unknown) (unknown) Difficulty (units (unk nown) date) Breathing unknown) (unknown) (no (unknown) (unknown) Diskus) 1 inh (units ( unknown) date) inhalation ONCE unknown) 08/10/22 [History Confirmed 11/30/22] (unknown) (no (unknown) (unknown) Documented By: (units (unknown) date) Andrea Kim unknown) D.O. 11/30/22 1325 (unknown) (no (unknown) (unknown) Draft (units (unkno [...] unknown) effort is made to edit content, cdl truck driver errors (unknown) (no (unknown) (unknown) tamsulosin 0.4 [...] own) date) unknown) (unknown) (no (unknown) (unknown) [id number] (units (unkno wn) date) unknown) (unknown) (no [...] own) date) unknown) (unknown) (no (unknown) (unknown) [place] [address] (unit s (unknown) date) unknown) (unknown) (no [...] (unknown) (unknown) : 1950 (units (unknown) date) Acct:[id number] unknown) (unknown) (no (unknown) (unknown) DTR's symmetric. [...] L4 through S1 unknown) instrumented fusion Dr. Romna (unknown) (no (unknown) (unknown) Exam Narrative (units [...] wn) date) unknown) (unknown) (no (unknown) (unknown) [employer] [facility] and had (units (unknown) date) difficulty with [...] physical therapy at (unit s (unknown) date) [facility] physical unknown) therapy in [place]. He reports as of (unknown) (no (unknown) [...] effort is made unknown) to edit content, cdl truck driver errors (unknown) (no (unknown) (unknown) stenosis. (units (unkn own) date) Eyfi-gl-lbzhxzry unknown) bilateral foraminal narrowing. (unknown) (no (unknown) [...] wn) date) unknown) (unknown) (no (unknown) (unknown) [id number] (units (unkno wn) date) unknown) (unknown) (no [...] date) unknown) (unknown) (no (unknown) (unknown) [place] [address] (unit s (unknown) date) unknown) (unknown) (no [...] (unknown) (unknown) : 1950 (units (unknown) date) Acct:[id number] unknown) (unknown) (no (unknown) (unknown) DTR's symmetric. [...] wn) date) unknown) (unknown) (no (unknown) (unknown) [employer] and had (units (unknown) date) difficulty with [...] physical therapy at (unit s (unknown) date) [facility] physical unknown) therapy in [place]. He reports as of (unknown) (no (unknown) [...] effort is made unknown) to edit content, cdl truck driver errors (unknown) (no (unknown) (unknown) stenosis. (units (unkn own) date) Oprc-na-brwhlpav unknown) bilateral foraminal narrowing. (unknown) (no (unknown) [...] wn) date) unknown) (unknown) (no (unknown) (unknown) [id number] (units (unkno wn) date) unknown) (unknown) (no [...] unknown) (unknown) (no (unknown) (unknown) [place] [id number] (unit s (unknown) date) unknown) (unknown) (no [...] (unknown) (unknown) : 1950 (units (unknown) date) Acct:[id number] unknown) (unknown) (no (unknown) (unknown) DTR's symmetric. [...] of September when he was shopping at [employer] (unknown) (no (unknown) (unknown) He reports (units [...] except as documented. (unknown) (no (unknown) (unknown) [facility]. He does have (units (unknown) date) evidence [...] wn) date) unknown) (unknown) (no (unknown) (unknown) [employer] and had (units (unknown) date) difficulty with [...] therapy at unknown) [facility] in [place] (unknown) (no (unknown) (unknown) developed new (units [...] physical therapy at (unit s (unknown) date) [facility] physical unknown) therapy in [place]. He reports as of (unknown) (no (unknown) [...] effort is made unknown) to edit content, cdl truck driver errors m (unknown) (no (unknown) (unknown) stenosis. (units (unkn own) date) Envn-cm-eduqycqc unknown) bilateral foraminal narrowing. (unknown) (no (unknown) [...] description facility 2022-11-30 00:00 Smokes tobacco daily ([facility] Vital Signs date measurement value units 2022-11-30 00:00 heart_rate 88 /min 2022-11-30 00:00 o2_saturation 98 % 2022-11-30 00:00 temperature_metric 36.89 C 2022-11-30 00:00 temperature_standard 98.4 F
[2023-01-22 16:03] LABS: BASOPHILS % (AUTO) 0.5 %; EOSINOPHILS # (AUTO) 0.1 10^3/uL (0.0-0.7); EOSINOPHILS % (AUTO) 1.6 %; HCT - HEMATOCRIT 43.2 % (42.0-52.0); LYMPHOCYTES # (AUTO) 0.9 10^3/uL (1.5-3.5); LYMPHOCYTES % (AUTO) 11.4 %; MEAN CORPUSCULAR HGB CONC 32.4 g/dL (32.0-36.0); MEAN CORPUSCULAR VOLUME 92.5 fL (80.0-94.0); MEAN PLATELET VOLUME 9.9 fL (7.4-11.4); MONOCYTES # (AUTO) 0.8 10^3/uL (0.0-1.0); MONOCYTES % (AUTO) 10.1 %; NEUTROPHILS # (AUTO) 6.2 10^3/uL (1.5-6.6); PLT - PLATELET COUNT 314 10^3/uL (130-450); RED BLOOD COUNT 4.67 10^6/uL (4.70-6.10); RED CELL DISTRIBUTION WIDTH 13.2 % (12.0-15.0); WHITE BLOOD COUNT 8.2 x10^3/uL (4.8-10.8)
--- NOTE | 2023-01-22 16:09 | XRAY Report ---
PROCEDURE: Chest 1 View X-Ray INDICATIONS: chest pain TECHNIQUE: One view of the chest was acquired. COMPARISON: 09/06/2022, 03/08/2022. Correlation is also made with chest CT, 01/18/2023. FINDINGS: Surgical changes and devices: None. Lungs and pleura: No pleural effusions or pneumothorax. Lungs are clear, yet hyperexpanded. Mediastinum: The aorta is prominent and tortuous. The cardiac contours are within normal limits. Bones and chest wall: No suspicious bony lesions. Overlying soft tissues appear unremarkable. IMPRESSION: Portable chest within normal limits for age, with hyperexpanded lungs noted. Reviewed by: Shukri Piña MD on 01/22/2023 3:08 PM [facility]OEBE Approved by: Shukri Piña MD on 01/22/2023 3:08 PM PHOEBE Station ID: [id number]
[2023-01-22 16:19] LABS: ALBUMIN 2.9 g/dL (3.2-5.5); ALBUMIN/GLOBULIN RATIO 0.7 (1.0-2.2); BILIRUBIN,TOTAL 0.6 mg/dL (0.2-1.0); CREATININE 0.9 mg/dL (0.6-1.2); POTASSIUM 3.9 mmol/L (3.5-5.0); TOTAL PROTEIN 6.9 g/dL (6.7-8.2)
[2023-01-22] MEDS ORDERED: oxyCODONE/ACET 5/325 Prepack 4 PO STA (16:56)
--- NOTE | 2023-01-22 16:59 | ED Physician Documentation ---
PD HPI DYSPNEA - Stated complaint Stated Complaint: SOA - Chief complaint Chief Complaint: Resp - History obtained from History obtained from: Patient - Additional information Additional information: The patient comes to the emergency department with chief complaint of pain just below his right ribs after coughing. Patient has a history of COPD and has a chronic cough. He felt as though he was having a flareup of his COPD and as he was coughing, he felt a sudden pain in his right upper abdomen. Patient states is really hurt to take a deep breath since then. This all happened today. The patient states that he is waiting to get a nebulizer machine at home but that this has been prescribed for him. He does use oxygen as needed. Patient denies any recent fever or chills. He has not felt ill in any other way. No other complaints at this time. PD PAST MEDICAL HISTORY - Past Medical History Cardiovascular: Hypertension, High cholesterol, Other Respiratory: COPD, Emphysema, Shortness of breath Neuro: Other Endocrine/Autoimmune: None GI: None : Benign prostate hypertrophy, Retention, Indwelling catheter HEENT: Chronic vision loss Psych: Depression, Anxiety Musculoskeletal: Chronic back pain Derm: None - Past Surgical History Past Surgical History: Yes General: Colonoscopy, Other Ortho: Spine surgery - Present Medications Home Medications: Ambulatory Orders Medication Instructions Recorded Confirmed Albuterol Sulfate [Proair Hfa 2 puffs INH Q4H PRN 04/16/20 03/08/22 Inhaler] Tamsulosin HCl [Flomax] 0.8 mg PO QPM 04/16/20 03/08/22 Fluticasone/Salmeterol [Advair 1 each INH BID 09/27/21 03/08/22 500-50 Diskus] Oxybutynin [Ditropan] 5 mg PO BID #14 tablet 10/31/21 03/08/22 Tiotropium [place] [Spiriva] 1 puffs INH DAILY 03/08/22 03/08/22 Ipratropium/Albuterol [Duoneb] 3 ml INH Q6H PRN #100 ml 01/19/23 Nebulizer 1 each MC Q6HR PRN #1 ea 01/19/23 traMADol [Ultram] 50 mg PO Q4-6H PRN #20 tablet 01/22/23 - Allergies Allergies/Adverse Reactions: Allergies Allergy/AdvReac Type Severity Reaction Status Date / Time hydrocodone Allergy Itching Verified 09/06/22 15:37 Penicillins Allergy Itching Verified 09/06/22 15:37 - Social History Does the pt smoke?: Yes Smoking Status: Current every day smoker Does the pt drink ETOH?: No Does the pt have substance abuse?: No - Immunizations Immunizations are current?: Yes - POLST Patient has POLST: No POLST Status: Full Code PD ED PE NORMAL - Vitals Vital signs reviewed: Yes - General General: Alert and oriented X 3, No acute distress, Well developed/nourished - HEENT HEENT: Atraumatic, PERRL, EOMI, Moist mucous membranes - Neck Neck: Supple, no meningeal sign - Cardiac Cardiac: RRR, No murmur, Strong equal pulses - Respiratory Respiratory: Other (Mildly labored respirations with occasional fine expiratory wheezes. Some degree of respiratory splinting, due to the pain in the right side.) - Abdomen Abdomen: Soft, Non distended, Other (Abdominal wall tenderness just adjacent to the right mid anterior costal margin) - Derm Derm: Warm and dry - Extremities Extremities: No deformity - Neuro Neuro: Alert and oriented X 3 - Psych Psych: Normal mood, Normal affect Results - Vitals Vitals: Vital Signs - 24 hr 01/22/23 01/22/23 01/22/23 15:30 15:51 16:15 Temperature 36.4 C L Heart Rate 92 84 72 Respiratory 18 22 18 Rate Blood Pressure 167/105 H 165/83 H O2 Saturation 94 96 01/22/23 17:11 Temperature Heart Rate 73 Respiratory 18 Rate Blood Pressure 161/74 H O2 Saturation 98 Oxygen O2 Source Room air - Labs Labs: Laboratory Tests 01/22/23 01/22/23 01/22/23 15:57 15:57 15:57 WBC 8.2 RBC 4.67 L Hgb 14.0 Hct 43.2 MCV 92.5 MCH 30.0 MCHC 32.4 RDW 13.2 Plt Count 314 MPV 9.9 Neut # (Auto) 6.2 Lymph # (Auto) 0.9 L [place] # (Auto) 0.8 Eos # (Auto) 0.1 Baso # (Auto) 0.0 Absolute Nucleated RBC 0.00 Nucleated RBC % 0.0 Sodium 137 Potassium 3.9 Chloride 98 L Carbon Dioxide 32 Anion Gap 7.0 BUN 16 Creatinine 0.9 Estimated GFR (MDRD) 82 L Glucose 108 H Calcium 11.0 H Total Bilirubin 0.6 AST 23 ALT 14 Alkaline Phosphatase 87 B-Natriuretic Peptide 19 Total Protein 6.9 Albumin 2.9 L Globulin 4.0 Albumin/Globulin Ratio 0.7 L Lipase 26 - Rads (name of study) Chest x-ray Relevant Findings:: Final report received, See rad report (Negative for acute findings) PD Medical Decision Making - ED course Complexity details: reviewed results, re-evaluated patient, considered differential, d/w patient ED course: The patient was treated symptomatically with a DuoNeb, which did improve his symptoms quite a bit. His chest x-ray was negative and I suspected he likely pulled an abdominal muscle while coughing. He was given a prepack of oxycodone, since he has had significant itching with hydrocodone. He was given a prescription for Ultram also to help with his abdominal wall pain. We have discussed the usual indications for return. Departure - Departure Disposition: 01 Home, Self Care Clinical Impression: COPD exacerbation Abdominal muscle strain Qualifiers: Encounter type: initial encounter Qualified Code(s): S39.011A - Strain of muscle, fascia and tendon of abdomen, initial encounter Condition: Stable Instructions: COPD Dc, ED Strain Abdominal Muscle Prescriptions: traMADol [Ultram] 50 mg PO Q4-6H PRN #20 tablet PRN Reason: Pain 5-7 Discharge Date/Time: 01/22/23 17:11
[2023-01-22 17:12] VITALS: BP 161/74
== END 2023-01-22 17:11 | disposition home or self-care (01) ==
LOC: ED 15:19
DX: J44.1 Chronic obstructive pulmonary disease with (acute) exacerbation (principal); S39.011A Strain of muscle, fascia and tendon of abdomen, initial encounter; X50.9XXA Other and unspecified overexertion or strenuous movements or postures, initial encounter; Y93.89 Activity, other specified; F17.200 Nicotine dependence, unspecified, uncomplicated
CPT/HCPCS: 36415; 80053; 83690; 83880; 85025; 94640; 96374; 99284

== ENCOUNTER 2023-02-10 20:53 | Outpatient (CLI) | payer MEDICARE, OTHER | END 2023-02-10 20:54 | disposition short-term general hospital (02) | LOC: EMS 20:53 | DX: M79.621 Pain in right upper arm (principal); M25.511 Pain in right shoulder; R22.2 Localized swelling, mass and lump, trunk; R20.0 Anesthesia of skin; R20.2 Paresthesia of skin | CPT/HCPCS: A0425; A0429; A0888 ==